=== PATIENT | female | born 1955 | race Caucasian/White ===

== ENCOUNTER 2017-07-21 06:24 | Inpatient (IN) ==
[2017-07-17 10:44] LABS: Basophils # 0.1 10*3/uL (0.0-0.2); Basophils % 1.5 % (0.0-0.8); Eosinophils # 0.1 10*3/uL (0.0-0.87); Eosinophils % 1.2 % (0.00-10.9); Hematocrit 44.5 VOL% (35.7-47.0); Immature Granulocytes % 0.3 %; Immature Granulocytes Absolute 0.02 #; Lymphocytes # 1.8 10*3/uL (1.4-4.0); Lymphocytes % 25.7 % (21.3-54.2); Mean Corpuscular Hemoglobin 33 PG (27-34); Mean Corpuscular Volume 91.9 FL (87-102); Mean Platelet Volume 9.7 FL (9.6-12.0); Monocytes # 0.7 10*3/uL (0.11-0.8); Monocytes % 9.5 % (1.7-12.7); Neutrophils # 4.2 10*3/uL (1.4-7.4); Neutrophils % 61.8 % (38.7-73.9); Platelet Count 240 T/CUMM (130-400); Red Blood Count 4.84 MC/CUMM (3.8-5.5); Red Cell Distribution Width 13.6 % (9.3-17.3); White Blood Count 6.8 T/CUMM (4-12)
[2017-07-17 11:23] LABS: Albumin 4.5 G/DL (3.4-5.0); Bilirubin,Total 0.7 MG/DL (0.2-1.0); Calcium 9.2 MG/DL (8.5-10.1); Osmolality,Calculated 273.2 MOS/KG (273-304); Potassium 4.1 MMOL/L (3.5-5.1); Total Protein 7.3 G/DL (6.4-8.3)
[~2017-07-21 06:24] MED LIST: VANCOMYCIN 500 MG VIAL ONE; VANCOMYCIN INJ 500 MG in SODIUM CHLORIDE 0.9% 100 ML IV ONE
[2017-07-21] MEDS ORDERED: FAMOTIDINE 20 MG TABLET PO ONE (08:07)
[2017-07-21] MEDS ORDERED: DIAZEPAM 5 MG TABLET PO ONE (08:07)
[2017-07-21] MEDS ORDERED: FAMOTIDINE 20 MG TABLET ONE (08:27)
[2017-07-21] MEDS ORDERED: DIAZEPAM 5 MG TABLET ONE (08:27)
[2017-07-21] MEDS ORDERED: HEPARIN 5,000 UNIT/1 ML VIAL ONE (09:07)
[2017-07-21] MEDS: LACTATED RINGERS 1,000 ML IV SCH ×7 (09:42→22:31)
[2017-07-21] MEDS ORDERED: DEXTROSE 50% 25 GM/50 ML VIAL IV PRN (11:06)
[2017-07-21] MEDS ORDERED: NALOXONE 0.4 MG/ML VIAL IV PRN (11:06)
[2017-07-21] MEDS ORDERED: PROMETHAZINE 25 MG/1 ML VIAL IM PRN (11:06)
[2017-07-21] MEDS ORDERED: HYDROmorphone 2 MG/1 ML VIAL IV PRN (11:06)
[2017-07-21] MEDS ORDERED: GLUCAGON 1 MG VIAL IM PRN (11:06)
[2017-07-21] MEDS ORDERED: ONDANSETRON 4 MG/2 ML VIAL IV PRN ×2 (11:06→11:35)
[2017-07-21] MEDS ORDERED: PHENYLEPHRINE DRIP 40 MG/250 ML PREMIX IV SCH (11:30)
[2017-07-21] MEDS ORDERED: ASPIRIN EC 81 MG TABLET PO SCH (11:30)
[2017-07-21] MEDS ORDERED: NITROPRUSSIDE 100 MG in DEXTROSE 5% 250 ML IV SCH (11:30)
[2017-07-21] MEDS ORDERED: HEPARIN/NACL 0.9% 2 UNITS/ML 500 ML IV ONE (11:33)
[2017-07-21] MEDS ORDERED: fentaNYL 100 MCG/2 ML VIAL ONE (11:33)
[2017-07-21] MEDS ORDERED: MIDAZOLAM 2 MG/2 ML VIAL ONE (11:33)
[2017-07-21] MEDS ORDERED: PROPOFOL 200 MG/20 ML VIAL IV ONE (11:33)
[2017-07-21] MEDS ORDERED: HEPARIN 10,000 UNIT/10 ML VIAL ONE (11:33)
[2017-07-21] MEDS ORDERED: GLYCOPYRROLATE 0.4 MG/2 ML VIAL ONE (11:34)
[2017-07-21] MEDS ORDERED: NITROGLYCERIN DRIP 50 MG/250 ML BOTTLE IV ONE (11:34)
[2017-07-21] MEDS ORDERED: KETOROLAC 30 MG/1 ML VIAL ONE (11:34)
[2017-07-21] MEDS ORDERED: ROCURONIUM 100 MG/10 ML VIAL IV ONE (11:34)
[2017-07-21] MEDS ORDERED: ESMOLOL 100 MG/10 ML VIAL IV ONE (11:34)
[2017-07-21] MEDS ORDERED: DEXAMETHASONE 10 MG/1 ML VIAL ONE (11:34)
[2017-07-21] MEDS ORDERED: NEOSTIGMINE 10 MG/10 ML VIAL ONE (11:34)
[2017-07-21] MEDS ORDERED: PROTAMINE SULFATE 50 MG/5 ML VIAL IV ONE (11:34)
[2017-07-21] MEDS ORDERED: SODIUM CHLORIDE 0.9% 250 ML IV ONE (11:35)
[2017-07-21] MEDS ORDERED: PHENYLEPHRINE 10 MG/1 ML VIAL IV ONE (11:35)
[2017-07-21] MEDS ORDERED: SEVOFLURANE 1 UNIT/15 MINUTE INH ONE (11:36)
[2017-07-21] MEDS: HYDROmorphone 2 MG/1 ML VIAL IV PRN ×5 (11:40→17:40)
[2017-07-21] MEDS ORDERED: PROMETHAZINE INJ 25 MG in SODIUM CHLORIDE 0.9% 50 ML IV ONE (12:04)
[2017-07-21] MEDS ORDERED: PROMETHAZINE 25 MG/1 ML VIAL ONE (12:05)
[2017-07-21] MEDS ORDERED: diphenhydrAMINE CAP 25 MG CAPSULE PO PRN (13:49)
[2017-07-21] MEDS ORDERED: diphenhydrAMINE CAP 25 MG CAPSULE ONE (13:53)
[2017-07-21] MEDS: ALBUTEROL/IPRATROPIUM 3 ML NEB RESP TX PRN (14:08)
[2017-07-21] MEDS: ASPIRIN CHEW 81 MG TABLET PO SCH (14:59)
[2017-07-21] MEDS: CLOPIDOGREL 75 MG TABLET PO SCH (15:00)
[2017-07-22] MEDS: ALBUTEROL/IPRATROPIUM 3 ML NEB RESP TX PRN (00:46)
[2017-07-22] MEDS: HYDROmorphone 2 MG/1 ML VIAL IV PRN ×2 (05:05→09:27)
[2017-07-22] MEDS: LACTATED RINGERS 1,000 ML IV SCH ×2 (08:02→08:16)
[2017-07-22] MEDS: CLOPIDOGREL 75 MG TABLET PO SCH (08:07)
[2017-07-22] MEDS: ASPIRIN CHEW 81 MG TABLET PO SCH (08:07)
[2017-07-22] MEDS ORDERED: PRAVASTATIN 40 MG TABLET PO SCH (09:00)
[2017-07-22] MEDS ORDERED: PANTOPRAZOLE 40 MG TABLET PO SCH (09:00)
[2017-07-22] MEDS ORDERED: TELMISARTAN 40 MG TABLET PO SCH (09:00)
[2017-07-22] MEDS ORDERED: MAGNESIUM OXIDE 400 MG TABLET PO SCH (09:00)
[2017-07-22] MEDS ORDERED: POTASSIUM CHLORIDE 10 MEQ TABLET PO SCH (09:00)
[2017-07-22] MEDS ORDERED: hydroCHLOROthiazide 25 MG TABLET PO SCH (09:00)
[2017-07-22 14:06] VITALS: BP 144/67
== END 2017-07-22 15:30 | disposition home or self-care (01) | DRG 39 ==
LOC: N.SDSINP 06:24 → N.CC 13:32 → N.3E 07-22 13:56
PROVIDERS: ADMIT Surgery; ATTEND Surgery

== ENCOUNTER 2020-06-12 09:49 | Inpatient (IN) ==
[2020-06-12 10:45] LABS: Basophils # 0.1 10*3/uL (0.0-0.2); Basophils % 0.9 % (0.0-0.8); Eosinophils % 0.4 % (0.00-10.9); Hematocrit 30.2 VOL% (35.7-47.0); Hemoglobin 10.8 GM/DL (12.0-16.0); Immature Granulocytes % 0.8 %; Immature Granulocytes Absolute 0.08 #; Lymphocytes # 1.3 10*3/uL (1.4-4.0); Lymphocytes % 12.3 % (21.3-54.2); Mean Corpuscular HGB Conc 35.8 GM/DL (32-36); Monocytes % 7.3 % (1.7-12.7); Neutrophils % 78.3 % (38.7-73.9); Platelet Count 412 T/CUMM (130-400); Red Blood Count 3.43 MC/CUMM (3.8-5.5); Red Cell Distribution Width 13.7 % (9.3-17.3); White Blood Count 10.3 T/CUMM (4-12)
[2020-06-12] MEDS ORDERED: SODIUM CHLORIDE 0.9% 1,000 ML IV STA (10:49)
[2020-06-12] MEDS ORDERED: ONDANSETRON 4 MG/2 ML VIAL IV ONE (10:49)
[2020-06-12 11:06] LABS: Albumin 3.5 G/DL (3.4-5.0); Bilirubin,Total 1.7 MG/DL (0.2-1.0); Calcium 8.6 MG/DL (8.5-10.1); Osmolality,Calculated 251.5 MOS/KG (273-304); Potassium 2.7 MMOL/L (3.5-5.1); Total Protein 6.9 G/DL (6.4-8.2)
[2020-06-12 11:25] LABS: Amorphous Crystals,Urine Few /HPF (Few); Bilirubin,Urine Small mg/dL (Negative); Blood, Urine Negative (Negative); Glucose,Urine (UA) Negative (Negative); Hyaline Casts,Urine 16 /LPF (0-3); Ketones,Urine Negative (Negative); Mucus,Urine Many /LPF (Occasional); Nitrite,Urine Negative (Negative); Protein,Urine 100 MG/DL; RBC,Urine 5 /HPF (0-4); Squamous Epithelial Cell,Urine Moderate /HPF (0-10); Urine Appearance CLOUDY (Clear); Urine Color Amber (Yellow); Urine Specific Gravity 1.021 (1.001-1.035); WBC,Urine 102 /HPF (0-6)
[2020-06-12] MEDS ORDERED: POTASSIUM CHLORIDE 20 MEQ TABLET PO STA ×2 (11:45→12:39)
[2020-06-12] MEDS ORDERED: ACETAMINOPHEN 325 MG TABLET PO PRN (12:03)
[2020-06-12 12:53] LABS: Risk Ratio 1.79; VLDL CHOLESTEROL 19.6 MG/DL
[2020-06-12] MEDS ORDERED: MAGNESIUM SULF RIDER 4 GM in PREMIX 1 EACH IV ONE (13:41)
[2020-06-12] MEDS: SODIUM CHLORIDE 0.9% 1,000 ML IV SCH (15:40)
[2020-06-12] MEDS: ENOXAPARIN 40 MG/0.4 ML SYRINGE SUBCUT SCH (15:51)
[2020-06-12] MEDS: ZALEPLON 5 MG CAPSULE PO PRN (21:34)
[2020-06-12] MEDS: ONDANSETRON 4 MG/2 ML VIAL IV PRN (21:35)
[2020-06-13] MEDS: SODIUM CHLORIDE 0.9% 1,000 ML IV SCH ×5 (01:36→21:47)
[2020-06-13 07:25] LABS: Basophils # 0.1 10*3/uL (0.0-0.2); Basophils % 0.8 % (0.0-0.8); Eosinophils # 0.1 10*3/uL (0.0-0.87); Eosinophils % 1.3 % (0.00-10.9); Immature Granulocytes % 0.9 %; Immature Granulocytes Absolute 0.07 #; Lymphocytes # 0.9 10*3/uL (1.4-4.0); Lymphocytes % 11.6 % (21.3-54.2); Mean Corpuscular HGB Conc 34.6 GM/DL (32-36); Mean Corpuscular Volume 92.2 FL (87-102); Monocytes % 8.6 % (1.7-12.7); Neutrophils % 76.8 % (38.7-73.9); Platelet Count 307 T/CUMM (130-400); Red Blood Count 2.82 MC/CUMM (3.8-5.5); Red Cell Distribution Width 13.7 % (9.3-17.3); White Blood Count 7.7 T/CUMM (4-12)
[2020-06-13 07:44] LABS: Albumin 2.9 G/DL (3.4-5.0); Calcium 7.9 MG/DL (8.5-10.1); Osmolality,Calculated 266.4 MOS/KG (273-304); Potassium 3.2 MMOL/L (3.5-5.1); Total Protein 5.8 G/DL (6.4-8.2)
[2020-06-13] MEDS ORDERED: POTASSIUM CHLORIDE 20 MEQ TABLET PO ONE (08:02)
[2020-06-13] MEDS: PANTOPRAZOLE 40 MG TABLET PO SCH (09:18)
[2020-06-13] MEDS ORDERED: metroNIDAZOLE INJ 500 MG in PREMIX 1 EACH IV ONE (12:47)
[2020-06-13] MEDS ORDERED: LEVOFLOXACIN INJ 500 MG in PREMIX 1 EACH IV ONE (12:47)
[2020-06-13] MEDS: ENOXAPARIN 40 MG/0.4 ML SYRINGE SUBCUT SCH (13:17)
[2020-06-13] MEDS: LEVOFLOXACIN INJ 500 MG in PREMIX 1 EACH IV SCH (13:37)
[2020-06-13] MEDS: MECLIZINE 25 MG TABLET PO SCH ×2 (13:37→21:08)
[2020-06-13] MEDS: FLUTICASONE 50 MCG NASAL SPRAY 16 GM BOTTLE BOTH NARES SCH ×2 (15:50→21:11)
[2020-06-13] MEDS ORDERED: SODIUM CHLORIDE 0.9% 1,000 ML IV ONE (16:25)
[2020-06-13] MEDS: ZALEPLON 5 MG CAPSULE PO PRN (21:08)
[2020-06-13] MEDS: MORPHINE 4 MG/1 ML VIAL IV PRN (21:10)
[2020-06-13 21:37] LABS: Basophils % 0.5 % (0.0-0.8); Eosinophils # 0.1 10*3/uL (0.0-0.87); Eosinophils % 1.3 % (0.00-10.9); Hematocrit 25.4 VOL% (35.7-47.0); Hemoglobin 8.4 GM/DL (12.0-16.0); Immature Granulocytes % 1.3 %; Lymphocytes % 13.5 % (21.3-54.2); Mean Corpuscular HGB Conc 33.1 GM/DL (32-36); Mean Corpuscular Volume 95.8 FL (87-102); Mean Platelet Volume 8.8 FL (9.6-12.0); Neutrophils % 74.4 % (38.7-73.9); Platelet Count 278 T/CUMM (130-400); Red Blood Count 2.65 MC/CUMM (3.8-5.5); White Blood Count 7.5 T/CUMM (4-12)
[2020-06-13 21:57] LABS: PT Patient Result 10.4 SECS (9.8-11.9); Partial Thromboplastin Time 22.5 SECS (23.9-33.8)
[2020-06-13 23:51] LABS: % Iron Saturation 21.2 % (18-50)
[2020-06-14 00:21] LABS: Folate 2.6 NG/ML (5.38-24.0); Vitamin B12 > 2000 PG/ML (211-911)
[2020-06-14] MEDS: SODIUM CHLORIDE 0.9% 1,000 ML IV SCH ×3 (00:53→22:43)
[2020-06-14] MEDS: MORPHINE 4 MG/1 ML VIAL IV PRN ×2 (01:00→08:42)
[2020-06-14 04:49] LABS: Basophils # 0.1 10*3/uL (0.0-0.2); Basophils % 0.7 % (0.0-0.8); Eosinophils # 0.1 10*3/uL (0.0-0.87); Hematocrit 28.1 VOL% (35.7-47.0); Hemoglobin 9.3 GM/DL (12.0-16.0); Immature Granulocytes Absolute 0.07 #; Lymphocytes # 1.2 10*3/uL (1.4-4.0); Lymphocytes % 16.3 % (21.3-54.2); Mean Corpuscular HGB Conc 33.1 GM/DL (32-36); Mean Platelet Volume 8.9 FL (9.6-12.0); Monocytes % 5.9 % (1.7-12.7); Neutrophils % 74.1 % (38.7-73.9); Platelet Count 253 T/CUMM (130-400); Red Blood Count 2.99 MC/CUMM (3.8-5.5); Red Cell Distribution Width 14.3 % (9.3-17.3); White Blood Count 7.2 T/CUMM (4-12)
[2020-06-14 05:19] LABS: Calcium 7.8 MG/DL (8.5-10.1); Osmolality,Calculated 275.7 MOS/KG (273-304); Potassium 3.5 MMOL/L (3.5-5.1)
[2020-06-14] MEDS: MECLIZINE 25 MG TABLET PO SCH ×2 (08:41→22:44)
[2020-06-14] MEDS: PANTOPRAZOLE 40 MG TABLET PO SCH (08:42)
[2020-06-14] MEDS: FLUTICASONE 50 MCG NASAL SPRAY 16 GM BOTTLE BOTH NARES SCH ×2 (08:42→22:43)
[2020-06-14] MEDS ORDERED: fentaNYL 100 MCG/2 ML VIAL ONE (11:21)
[2020-06-14] MEDS ORDERED: MIDAZOLAM 2 MG/2 ML VIAL ONE (11:22)
[2020-06-14] MEDS ORDERED: LACTATED RINGERS 1,000 ML IV SCH (11:30)
[2020-06-14] MEDS ORDERED: TISSUE ADHESIVE 1 EACH APPLICATOR TOP ONE (11:35)
[2020-06-14] MEDS ORDERED: BUPIVACAINE MPF 0.25% 30 ML VIAL ONE (11:35)
[2020-06-14] MEDS ORDERED: LIDOCAINE 1%/EPI INJ 20 ML VIAL ONE (11:36)
[2020-06-14] MEDS ORDERED: SUCCINYLCHOLINE 200 MG/10 ML VIAL ONE (11:44)
[2020-06-14] MEDS ORDERED: ALBUTEROL/IPRATROPIUM 3 ML NEB RESP TX ONE (11:48)
[2020-06-14] MEDS ORDERED: ONDANSETRON 4 MG/2 ML VIAL ONE (12:25)
[2020-06-14] MEDS ORDERED: propofoL 200 MG/20 ML VIAL IV ONE (12:25)
[2020-06-14] MEDS ORDERED: PHENYLEPHRINE 1 MG/10 ML SYRINGE IV ONE (12:25)
[2020-06-14] MEDS ORDERED: DEXAMETHASONE 4 MG/1 ML VIAL ONE (12:25)
[2020-06-14] MEDS ORDERED: LIDOCAINE 2% 5 ML VIAL ONE (12:25)
[2020-06-14] MEDS ORDERED: PROMETHAZINE 25 MG/1 ML VIAL ONE (12:29)
[2020-06-14] MEDS ORDERED: SUGAMMADEX 200 MG/2 ML VIAL IV ONE (12:53)
[2020-06-14] MEDS ORDERED: SEVOFLURANE 1 UNIT/15 MINUTE INH ONE (13:36)
[2020-06-14] MEDS: LEVOFLOXACIN INJ 500 MG in PREMIX 1 EACH IV SCH (14:42)
[2020-06-14] MEDS: ONDANSETRON 4 MG/2 ML VIAL IV PRN ×2 (14:48→16:20)
[2020-06-14] MEDS: ZALEPLON 5 MG CAPSULE PO PRN (22:58)
[2020-06-15 05:47] LABS: Basophils % 0.5 % (0.0-0.8); Eosinophils % 0.3 % (0.00-10.9); Hematocrit 28.9 VOL% (35.7-47.0); Hemoglobin 9.6 GM/DL (12.0-16.0); Immature Granulocytes % 1.6 %; Immature Granulocytes Absolute 0.12 #; Lymphocytes # 0.8 10*3/uL (1.4-4.0); Lymphocytes % 10.9 % (21.3-54.2); Mean Corpuscular HGB Conc 33.2 GM/DL (32-36); Mean Platelet Volume 9.1 FL (9.6-12.0); Monocytes % 8.7 % (1.7-12.7); Platelet Count 273 T/CUMM (130-400); Red Blood Count 3.01 MC/CUMM (3.8-5.5); Red Cell Distribution Width 15.1 % (9.3-17.3); White Blood Count 7.5 T/CUMM (4-12)
[2020-06-15 06:11] LABS: Calcium 8.1 MG/DL (8.5-10.1); Osmolality,Calculated 272.8 MOS/KG (273-304); Potassium 3.8 MMOL/L (3.5-5.1)
[2020-06-15] MEDS: MECLIZINE 25 MG TABLET PO SCH ×2 (09:02→20:32)
[2020-06-15] MEDS: FLUTICASONE 50 MCG NASAL SPRAY 16 GM BOTTLE BOTH NARES SCH ×2 (09:03→20:33)
[2020-06-15] MEDS: PANTOPRAZOLE 40 MG TABLET PO SCH (09:03)
[2020-06-15] MEDS: MORPHINE 4 MG/1 ML VIAL IV PRN (09:56)
[2020-06-15] MEDS: SODIUM CHLORIDE 0.9% 1,000 ML IV SCH (11:02)
[2020-06-15] MEDS ORDERED: MORPHINE 4 MG/1 ML VIAL IV PRN ×2 (13:39)
[2020-06-15] MEDS: LEVOFLOXACIN INJ 500 MG in PREMIX 1 EACH IV SCH (14:09)
[2020-06-16] MEDS: PANTOPRAZOLE 40 MG TABLET PO SCH (10:06)
[2020-06-16] MEDS: MECLIZINE 25 MG TABLET PO SCH (10:06)
[2020-06-16] MEDS: FLUTICASONE 50 MCG NASAL SPRAY 16 GM BOTTLE BOTH NARES SCH (10:06)
[2020-06-16 11:13] VITALS: BP 131/59
== END 2020-06-16 12:51 | disposition home or self-care (01) | DRG 418 ==
LOC: N.ED 09:49 → SUATTDRO 12:03 → N.EDINP 12:03 → N.TELES 15:15
PROVIDERS: ADMIT Internal Medicine; ATTEND Internal Medicine
PROC: LAPCHOL (2020-06-14 12:05)

== ENCOUNTER 2020-06-19 05:48 | Inpatient (IN) ==
[2020-06-19 06:09] LABS: Basophils # 0.2 10*3/uL (0.0-0.2); Basophils % 1.5 % (0.0-0.8); Eosinophils # 0.1 10*3/uL (0.0-0.87); Eosinophils % 0.7 % (0.00-10.9); Hematocrit 38.3 VOL% (35.7-47.0); Hemoglobin 12.2 GM/DL (12.0-16.0); Immature Granulocytes % 2.1 %; Immature Granulocytes Absolute 0.28 #; Lymphocytes # 2.2 10*3/uL (1.4-4.0); Lymphocytes % 16.6 % (21.3-54.2); Mean Corpuscular HGB Conc 31.9 GM/DL (32-36); Mean Platelet Volume 9.1 FL (9.6-12.0); Monocytes % 6.9 % (1.7-12.7); NRBC # 0.03 10*3/uL; Neutrophils % 72.2 % (38.7-73.9); Platelet Count 442 T/CUMM (130-400); Red Blood Count 3.99 MC/CUMM (3.8-5.5); Red Cell Distribution Width 14.8 % (9.3-17.3); White Blood Count 13.4 T/CUMM (4-12)
[2020-06-19] MEDS ORDERED: FUROSEMIDE 40 MG/4 ML VIAL IV STA (06:15)
[2020-06-19] MEDS ORDERED: ONDANSETRON 4 MG/2 ML VIAL IV STA (06:27)
[2020-06-19] MEDS ORDERED: MORPHINE 4 MG/1 ML VIAL IV STA (06:27)
[2020-06-19] MEDS ORDERED: ONDANSETRON 4 MG/2 ML VIAL ONE (06:28)
[2020-06-19] MEDS ORDERED: MORPHINE 4 MG/1 ML VIAL ONE (06:29)
[2020-06-19 06:30] LABS: Albumin 4.3 G/DL (3.4-5.0); Bilirubin,Total 0.5 MG/DL (0.2-1.0); Calcium 9.3 MG/DL (8.5-10.1); Osmolality,Calculated 282.4 MOS/KG (273-304); Potassium 3.9 MMOL/L (3.5-5.1); Total Protein 7.4 G/DL (6.4-8.2)
[2020-06-19 06:32] LABS: PT Patient Result 11.1 SECS (9.8-11.9)
[2020-06-19 06:48] LABS: ABG HCO3 19.5 MMOL/L (20-26); ABG Oxygen Saturation 98.2 % (95-100); ABG PCO2 28.1 MM HG (35-48); ABG PH 7.402 (7.35-7.45); ABG TCO2 15.5 MMOL/L (23-27); Allen Test Positive
[2020-06-19 07:04] LABS: Partial Thromboplastin Time < 20.0 SECS (23.9-33.8)
[2020-06-19 07:09] LABS: Bacteria,Urine Occasional /HPF (Few); Bilirubin,Urine Negative (Negative); Blood, Urine Small mg/dL (Negative); Glucose,Urine (UA) Negative (Negative); Granular Casts,Urine 1 /LPF (0-1); Hyaline Casts,Urine 21 /LPF (0-3); Ketones,Urine Negative (Negative); Mucus,Urine Few /LPF (Occasional); Nitrite,Urine Negative (Negative); Protein,Urine 30 MG/DL; RBC,Urine 3 /HPF (0-4); Squamous Epithelial Cell,Urine Occasional /HPF (0-10); Urine Appearance Slightly Hazy (Clear); Urine Color Yellow (Yellow); Urine Specific Gravity 1.009 (1.001-1.035); Urine Urobilinogen < 2.0 EU/DL (0.2-1.0); WBC,Urine 25 /HPF (0-6)
[2020-06-19] MEDS ORDERED: PHENAZOPYRIDINE 95 MG TABLET ONE (08:41)
[2020-06-19] MEDS ORDERED: DOCUSATE SODIUM 100 MG CAPSULE PO PRN (09:05)
[2020-06-19] MEDS ORDERED: GLUCAGON 1 MG VIAL IM PRN (09:05)
[2020-06-19] MEDS ORDERED: NICOTINE 21 MG/24 HR PATCH TRANSDERM PRN (09:05)
[2020-06-19] MEDS ORDERED: DEXTROSE 50% 25 GM/50 ML VIAL IV PRN (09:05)
[2020-06-19] MEDS ORDERED: ENOXAPARIN 30 MG/0.3 ML SYRINGE SUBCUT SCH (10:00)
[2020-06-19] MEDS ORDERED: LEVOFLOXACIN INJ 750 MG in PREMIX 1 EACH IV SCH (14:00)
[2020-06-19] MEDS: FUROSEMIDE 40 MG/4 ML VIAL IV SCH (17:53)
[2020-06-19] MEDS ORDERED: SODIUM CHLORIDE 0.9% 250 ML IV ONE (20:00)
[2020-06-19] MEDS: methylPREDNISolone SOD SUC 40 MG/1 ML VIAL IV SCH (20:45)
[2020-06-19] MEDS: FLUTICASONE 50 MCG NASAL SPRAY 16 GM BOTTLE BOTH NARES SCH (20:46)
[2020-06-19] MEDS: AZTREONAM 2,000 MG in SODIUM CHLORIDE 0.9% 100 ML IV SCH (20:53)
[2020-06-20] MEDS: AZTREONAM 2,000 MG in SODIUM CHLORIDE 0.9% 100 ML IV SCH ×4 (03:34→20:18)
[2020-06-20] MEDS: ALBUTEROL/IPRATROPIUM 3 ML NEB RESP TX PRN ×2 (04:28→15:32)
[2020-06-20 05:29] LABS: Basophils % 0.3 % (0.0-0.8); Hematocrit 32.5 VOL% (35.7-47.0); Hemoglobin 10.7 GM/DL (12.0-16.0); Immature Granulocytes % 0.8 %; Immature Granulocytes Absolute 0.06 #; Lymphocytes # 0.5 10*3/uL (1.4-4.0); Lymphocytes % 7.4 % (21.3-54.2); Mean Corpuscular HGB Conc 32.9 GM/DL (32-36); Mean Corpuscular Volume 93.4 FL (87-102); Mean Platelet Volume 9.1 FL (9.6-12.0); Monocytes % 2.3 % (1.7-12.7); Neutrophils % 89.2 % (38.7-73.9); Platelet Count 252 T/CUMM (130-400); Red Blood Count 3.48 MC/CUMM (3.8-5.5); Red Cell Distribution Width 14.9 % (9.3-17.3); White Blood Count 7.3 T/CUMM (4-12)
[2020-06-20 05:55] LABS: Calcium 8.7 MG/DL (8.5-10.1); Osmolality,Calculated 279.7 MOS/KG (273-304); Potassium 3.7 MMOL/L (3.5-5.1)
[2020-06-20] MEDS ORDERED: PANTOPRAZOLE 40 MG TABLET PO SCH (09:00)
[2020-06-20] MEDS ORDERED: ALPRAZolam 0.25 MG TABLET PO PRN (09:22)
[2020-06-20] MEDS: FLUTICASONE 50 MCG NASAL SPRAY 16 GM BOTTLE BOTH NARES SCH ×2 (09:24→20:19)
[2020-06-20] MEDS: MULTIVITAMIN (CENTRUM) TABLET PO SCH (09:25)
[2020-06-20] MEDS: ASPIRIN CHEW 81 MG TABLET PO SCH (09:25)
[2020-06-20] MEDS: SIMVASTATIN 40 MG TABLET PO SCH (09:26)
[2020-06-20] MEDS: FUROSEMIDE 40 MG TABLET PO SCH (09:26)
[2020-06-20] MEDS: COENZYME Q10 200 MG PO SCH (09:26)
[2020-06-20] MEDS: CHOLECALCIFEROL 1,000 UNIT TABLET PO SCH (09:26)
[2020-06-20] MEDS: CYANOCOBALAMIN 500 MCG TABLET PO SCH (09:26)
[2020-06-20] MEDS: PANTOPRAZOLE 40 MG TABLET PO SCH (09:26)
[2020-06-20] MEDS: BUDESONIDE/FORMOTEROL 160-4.5 INHALER 6 GM INH SCH ×3 (09:27→20:19)
[2020-06-20] MEDS: methylPREDNISolone SOD SUC 40 MG/1 ML VIAL IV SCH ×2 (09:27→20:18)
[2020-06-20] MEDS: FUROSEMIDE 40 MG/4 ML VIAL IV SCH (09:49)
[2020-06-20] MEDS: ENOXAPARIN 40 MG/0.4 ML SYRINGE SUBCUT SCH (09:50)
[2020-06-20] MEDS: SERTRALINE 25 MG TABLET PO SCH (11:12)
[2020-06-20] MEDS ORDERED: LEVOFLOXACIN INJ 750 MG in PREMIX 1 EACH IV SCH (14:00)
[2020-06-20] MEDS ORDERED: SODIUM CHLORIDE 0.9% 250 ML IV ONE (19:32)
[2020-06-20] MEDS: CLORAZEPATE 3.75 MG TABLET PO PRN (20:18)
[2020-06-20] MEDS: ONDANSETRON 4 MG/2 ML VIAL IV PRN (23:56)
[2020-06-21] MEDS: ONDANSETRON 4 MG/2 ML VIAL IV PRN (03:34)
[2020-06-21] MEDS: AZTREONAM 2,000 MG in SODIUM CHLORIDE 0.9% 100 ML IV SCH ×4 (03:34→21:30)
[2020-06-21 07:11] LABS: Basophils % 0.1 % (0.0-0.8); Hematocrit 30.7 VOL% (35.7-47.0); Immature Granulocytes % 0.6 %; Immature Granulocytes Absolute 0.05 #; Lymphocytes # 0.4 10*3/uL (1.4-4.0); Lymphocytes % 5.5 % (21.3-54.2); Mean Corpuscular HGB Conc 32.6 GM/DL (32-36); Mean Corpuscular Volume 95.3 FL (87-102); Monocytes % 5.1 % (1.7-12.7); Neutrophils % 88.7 % (38.7-73.9); Platelet Count 231 T/CUMM (130-400); Red Blood Count 3.22 MC/CUMM (3.8-5.5); Red Cell Distribution Width 14.8 % (9.3-17.3); White Blood Count 7.8 T/CUMM (4-12)
[2020-06-21 07:19] LABS: Calcium 8.6 MG/DL (8.5-10.1); Osmolality,Calculated 287.3 MOS/KG (273-304); Potassium 3.4 MMOL/L (3.5-5.1)
[2020-06-21] MEDS: methylPREDNISolone SOD SUC 40 MG/1 ML VIAL IV SCH ×2 (09:11→21:29)
[2020-06-21] MEDS: ENOXAPARIN 40 MG/0.4 ML SYRINGE SUBCUT SCH (09:11)
[2020-06-21] MEDS: MULTIVITAMIN (CENTRUM) TABLET PO SCH (09:12)
[2020-06-21] MEDS: FUROSEMIDE 40 MG TABLET PO SCH (09:12)
[2020-06-21] MEDS: ASPIRIN CHEW 81 MG TABLET PO SCH (09:12)
[2020-06-21] MEDS: PANTOPRAZOLE 40 MG TABLET PO SCH (09:12)
[2020-06-21] MEDS: SERTRALINE 25 MG TABLET PO SCH (09:12)
[2020-06-21] MEDS: CHOLECALCIFEROL 1,000 UNIT TABLET PO SCH (09:12)
[2020-06-21] MEDS: CYANOCOBALAMIN 500 MCG TABLET PO SCH (09:12)
[2020-06-21] MEDS: COENZYME Q10 200 MG PO SCH (09:13)
[2020-06-21] MEDS: SIMVASTATIN 40 MG TABLET PO SCH (09:13)
[2020-06-21] MEDS: FLUTICASONE 50 MCG NASAL SPRAY 16 GM BOTTLE BOTH NARES SCH ×2 (09:13→21:30)
[2020-06-21] MEDS: BUDESONIDE/FORMOTEROL 160-4.5 INHALER 6 GM INH SCH ×2 (09:14→21:30)
[2020-06-21] MEDS ORDERED: MAGNESIUM SULF RIDER 2 GM in PREMIX 1 EACH IV ONE (09:53)
[2020-06-21] MEDS ORDERED: POTASSIUM CHLORIDE 20 MEQ TABLET PO ONE (09:53)
[2020-06-21] MEDS ORDERED: FLUCONAZOLE 200 MG TABLET PO ONE (10:21)
[2020-06-21] MEDS: PHENAZOPYRIDINE 95 MG TABLET PO SCH ×2 (10:43→16:23)
[2020-06-21] MEDS: ALBUTEROL/IPRATROPIUM 3 ML NEB RESP TX SCH ×2 (13:47→19:11)
[2020-06-21] MEDS: LEVOFLOXACIN 750 MG TABLET PO SCH (15:17)
[2020-06-21] MEDS: CLORAZEPATE 3.75 MG TABLET PO PRN (22:40)
[2020-06-22] MEDS: ALBUTEROL/IPRATROPIUM 3 ML NEB RESP TX SCH ×4 (00:45→19:59)
[2020-06-22 05:57] LABS: Calcium 8.9 MG/DL (8.5-10.1); Osmolality,Calculated 286.5 MOS/KG (273-304); Potassium 3.9 MMOL/L (3.5-5.1)
[2020-06-22] MEDS: AZTREONAM 2,000 MG in SODIUM CHLORIDE 0.9% 100 ML IV SCH ×4 (07:02→20:55)
[2020-06-22] MEDS: methylPREDNISolone SOD SUC 40 MG/1 ML VIAL IV SCH ×2 (09:12→20:48)
[2020-06-22] MEDS ORDERED: NITROGLYCERIN SL 0.4 MG TABLET SL PRN (09:21)
[2020-06-22] MEDS: ASPIRIN CHEW 81 MG TABLET PO SCH (09:46)
[2020-06-22] MEDS: PANTOPRAZOLE 40 MG TABLET PO SCH (09:46)
[2020-06-22] MEDS: FUROSEMIDE 40 MG TABLET PO SCH (09:46)
[2020-06-22] MEDS: SERTRALINE 25 MG TABLET PO SCH (09:46)
[2020-06-22] MEDS: LEVOFLOXACIN 750 MG TABLET PO SCH (09:46)
[2020-06-22] MEDS: METOPROLOL TARTRATE 25 MG TABLET PO SCH ×2 (09:46→20:56)
[2020-06-22] MEDS: CHOLECALCIFEROL 1,000 UNIT TABLET PO SCH (09:46)
[2020-06-22] MEDS: PHENAZOPYRIDINE 95 MG TABLET PO SCH ×2 (09:47→16:00)
[2020-06-22] MEDS: POTASSIUM CHLORIDE 20 MEQ TABLET PO SCH (09:47)
[2020-06-22] MEDS: CYANOCOBALAMIN 500 MCG TABLET PO SCH (09:47)
[2020-06-22] MEDS: MULTIVITAMIN (CENTRUM) TABLET PO SCH (09:47)
[2020-06-22] MEDS: SIMVASTATIN 40 MG TABLET PO SCH (09:47)
[2020-06-22] MEDS: FLUTICASONE 50 MCG NASAL SPRAY 16 GM BOTTLE BOTH NARES SCH ×2 (09:52→20:59)
[2020-06-22] MEDS: BUDESONIDE/FORMOTEROL 160-4.5 INHALER 6 GM INH SCH ×2 (09:53→20:59)
[2020-06-22] MEDS: COENZYME Q10 200 MG PO SCH (09:56)
[2020-06-22] MEDS: ENOXAPARIN 40 MG/0.4 ML SYRINGE SUBCUT SCH (09:56)
[2020-06-22] MEDS: CLORAZEPATE 3.75 MG TABLET PO PRN (21:00)
[2020-06-23] MEDS: ALBUTEROL/IPRATROPIUM 3 ML NEB RESP TX SCH ×4 (00:25→19:14)
[2020-06-23] MEDS: AZTREONAM 2,000 MG in SODIUM CHLORIDE 0.9% 100 ML IV SCH ×4 (03:16→21:32)
[2020-06-23 06:41] LABS: Calcium 9.2 MG/DL (8.5-10.1); Osmolality,Calculated 292.3 MOS/KG (273-304); Potassium 4.8 MMOL/L (3.5-5.1)
[2020-06-23] MEDS: methylPREDNISolone SOD SUC 40 MG/1 ML VIAL IV SCH ×2 (08:37→21:28)
[2020-06-23] MEDS: MULTIVITAMIN (CENTRUM) TABLET PO SCH (09:16)
[2020-06-23] MEDS: CYANOCOBALAMIN 500 MCG TABLET PO SCH (09:16)
[2020-06-23] MEDS: CHOLECALCIFEROL 1,000 UNIT TABLET PO SCH (09:16)
[2020-06-23] MEDS: PHENAZOPYRIDINE 95 MG TABLET PO SCH ×2 (09:17→16:46)
[2020-06-23] MEDS: FUROSEMIDE 40 MG TABLET PO SCH (09:17)
[2020-06-23] MEDS: SIMVASTATIN 40 MG TABLET PO SCH (09:17)
[2020-06-23] MEDS: POTASSIUM CHLORIDE 20 MEQ TABLET PO SCH (09:17)
[2020-06-23] MEDS: SERTRALINE 25 MG TABLET PO SCH (09:17)
[2020-06-23] MEDS: METOPROLOL TARTRATE 25 MG TABLET PO SCH ×2 (09:17→21:27)
[2020-06-23] MEDS: PANTOPRAZOLE 40 MG TABLET PO SCH (09:17)
[2020-06-23] MEDS: ASPIRIN CHEW 81 MG TABLET PO SCH (09:17)
[2020-06-23] MEDS: COENZYME Q10 200 MG PO SCH (09:18)
[2020-06-23] MEDS: BUDESONIDE/FORMOTEROL 160-4.5 INHALER 6 GM INH SCH ×2 (09:25→21:28)
[2020-06-23] MEDS: FLUTICASONE 50 MCG NASAL SPRAY 16 GM BOTTLE BOTH NARES SCH ×2 (09:25→21:28)
[2020-06-23] MEDS: LEVOFLOXACIN 750 MG TABLET PO SCH (09:31)
[2020-06-23] MEDS: CLORAZEPATE 3.75 MG TABLET PO PRN (21:27)
[2020-06-24] MEDS: AZTREONAM 2,000 MG in SODIUM CHLORIDE 0.9% 100 ML IV SCH ×5 (03:41→21:54)
[2020-06-24] MEDS: ALBUTEROL/IPRATROPIUM 3 ML NEB RESP TX SCH ×4 (04:55→20:15)
[2020-06-24 06:03] LABS: Basophils % 0.1 % (0.0-0.8); Hematocrit 33.3 VOL% (35.7-47.0); Hemoglobin 10.6 GM/DL (12.0-16.0); Immature Granulocytes % 1.1 %; Immature Granulocytes Absolute 0.09 #; Lymphocytes # 0.4 10*3/uL (1.4-4.0); Lymphocytes % 4.1 % (21.3-54.2); Mean Corpuscular HGB Conc 31.8 GM/DL (32-36); Mean Corpuscular Volume 97.9 FL (87-102); Mean Platelet Volume 10.9 FL (9.6-12.0); Monocytes % 3.3 % (1.7-12.7); Neutrophils % 91.4 % (38.7-73.9); Platelet Count 207 T/CUMM (130-400); Red Cell Distribution Width 15.1 % (9.3-17.3); White Blood Count 8.5 T/CUMM (4-12)
[2020-06-24 06:30] LABS: Calcium 9.4 MG/DL (8.5-10.1); Osmolality,Calculated 294.3 MOS/KG (273-304); Potassium 4.3 MMOL/L (3.5-5.1)
[2020-06-24] MEDS: MULTIVITAMIN (CENTRUM) TABLET PO SCH (09:04)
[2020-06-24] MEDS: POTASSIUM CHLORIDE 20 MEQ TABLET PO SCH (09:04)
[2020-06-24] MEDS: CYANOCOBALAMIN 500 MCG TABLET PO SCH (09:05)
[2020-06-24] MEDS: PANTOPRAZOLE 40 MG TABLET PO SCH (09:05)
[2020-06-24] MEDS: METOPROLOL TARTRATE 25 MG TABLET PO SCH ×2 (09:05→21:54)
[2020-06-24] MEDS: ASPIRIN CHEW 81 MG TABLET PO SCH (09:05)
[2020-06-24] MEDS: PHENAZOPYRIDINE 95 MG TABLET PO SCH ×2 (09:05→16:23)
[2020-06-24] MEDS: FUROSEMIDE 40 MG TABLET PO SCH (09:05)
[2020-06-24] MEDS: LEVOFLOXACIN 750 MG TABLET PO SCH (09:06)
[2020-06-24] MEDS: SERTRALINE 25 MG TABLET PO SCH (09:06)
[2020-06-24] MEDS: SIMVASTATIN 40 MG TABLET PO SCH (09:06)
[2020-06-24] MEDS: CHOLECALCIFEROL 1,000 UNIT TABLET PO SCH (09:06)
[2020-06-24] MEDS: BUDESONIDE/FORMOTEROL 160-4.5 INHALER 6 GM INH SCH ×2 (09:07→21:54)
[2020-06-24] MEDS: FLUTICASONE 50 MCG NASAL SPRAY 16 GM BOTTLE BOTH NARES SCH ×2 (09:07→21:54)
[2020-06-24] MEDS: COENZYME Q10 200 MG PO SCH (09:08)
[2020-06-24] MEDS: methylPREDNISolone SOD SUC 40 MG/1 ML VIAL IV SCH ×2 (10:05→21:54)
[2020-06-24 20:44] LABS: Band Neutrophils 1 % (0-10); Lymphocytes 6 % (20-55); Platelet Estimate Normal; Segmented Neutrophils 90 % (50-85); Total Cells Counted 100
[2020-06-25] MEDS: ALBUTEROL/IPRATROPIUM 3 ML NEB RESP TX SCH ×4 (01:44→19:49)
[2020-06-25] MEDS: AZTREONAM 2,000 MG in SODIUM CHLORIDE 0.9% 100 ML IV SCH ×4 (03:40→21:09)
[2020-06-25 06:09] LABS: Basophils % 0.1 % (0.0-0.8); Hematocrit 33.8 VOL% (35.7-47.0); Hemoglobin 10.6 GM/DL (12.0-16.0); Immature Granulocytes % 1.5 %; Immature Granulocytes Absolute 0.11 #; Lymphocytes # 0.3 10*3/uL (1.4-4.0); Lymphocytes % 4.4 % (21.3-54.2); Mean Corpuscular HGB Conc 31.4 GM/DL (32-36); Mean Corpuscular Volume 99.1 FL (87-102); Mean Platelet Volume 11.3 FL (9.6-12.0); Monocytes % 3.2 % (1.7-12.7); Neutrophils % 90.8 % (38.7-73.9); Platelet Count 205 T/CUMM (130-400); Red Blood Count 3.41 MC/CUMM (3.8-5.5); Red Cell Distribution Width 15.3 % (9.3-17.3); White Blood Count 7.4 T/CUMM (4-12)
[2020-06-25 06:25] LABS: Calcium 9.4 MG/DL (8.5-10.1); Osmolality,Calculated 293.3 MOS/KG (273-304); Potassium 4.7 MMOL/L (3.5-5.1)
[2020-06-25 06:47] LABS: Hypochromasia 1+; Lymphocytes 5 % (20-55); Microcytosis 1+; Platelet Estimate Adequate; Segmented Neutrophils 93 % (50-85); Total Cells Counted 100
[2020-06-25] MEDS: FUROSEMIDE 40 MG TABLET PO SCH (09:32)
[2020-06-25] MEDS: ASPIRIN CHEW 81 MG TABLET PO SCH (09:32)
[2020-06-25] MEDS: POTASSIUM CHLORIDE 20 MEQ TABLET PO SCH (09:32)
[2020-06-25] MEDS: SERTRALINE 25 MG TABLET PO SCH (09:32)
[2020-06-25] MEDS: CYANOCOBALAMIN 500 MCG TABLET PO SCH (09:32)
[2020-06-25] MEDS: PHENAZOPYRIDINE 95 MG TABLET PO SCH ×2 (09:32→17:31)
[2020-06-25] MEDS: PANTOPRAZOLE 40 MG TABLET PO SCH (09:33)
[2020-06-25] MEDS: MULTIVITAMIN (CENTRUM) TABLET PO SCH (09:33)
[2020-06-25] MEDS: CHOLECALCIFEROL 1,000 UNIT TABLET PO SCH (09:33)
[2020-06-25] MEDS: SIMVASTATIN 40 MG TABLET PO SCH (09:33)
[2020-06-25] MEDS: LEVOFLOXACIN 750 MG TABLET PO SCH (09:33)
[2020-06-25] MEDS: BUDESONIDE/FORMOTEROL 160-4.5 INHALER 6 GM INH SCH ×2 (09:34→21:09)
[2020-06-25] MEDS: FLUTICASONE 50 MCG NASAL SPRAY 16 GM BOTTLE BOTH NARES SCH ×2 (09:36→21:09)
[2020-06-25] MEDS: predniSONE 20 MG TABLET PO SCH (09:37)
[2020-06-25] MEDS: METOPROLOL TARTRATE 25 MG TABLET PO SCH (09:41)
[2020-06-25] MEDS: COENZYME Q10 200 MG PO SCH (09:45)
[2020-06-25] MEDS ORDERED: SODIUM CHLORIDE 0.9% 500 ML IV ONE (11:17)
[2020-06-25] MEDS: CLORAZEPATE 3.75 MG TABLET PO PRN (21:20)
[2020-06-26] MEDS: AZTREONAM 2,000 MG in SODIUM CHLORIDE 0.9% 100 ML IV SCH ×4 (03:00→21:48)
[2020-06-26] MEDS: ALBUTEROL/IPRATROPIUM 3 ML NEB RESP TX SCH ×4 (03:11→22:41)
[2020-06-26 07:23] LABS: Calcium 9.2 MG/DL (8.5-10.1); Osmolality,Calculated 287.3 MOS/KG (273-304); Potassium 3.7 MMOL/L (3.5-5.1)
[2020-06-26] MEDS: PHENAZOPYRIDINE 95 MG TABLET PO SCH ×2 (07:53→18:00)
[2020-06-26] MEDS ORDERED: FUROSEMIDE 20 MG TABLET PO SCH (09:00)
[2020-06-26] MEDS: FLUTICASONE 50 MCG NASAL SPRAY 16 GM BOTTLE BOTH NARES SCH ×2 (09:41→21:49)
[2020-06-26] MEDS: SERTRALINE 25 MG TABLET PO SCH (09:41)
[2020-06-26] MEDS: predniSONE 20 MG TABLET PO SCH (09:41)
[2020-06-26] MEDS: MULTIVITAMIN (CENTRUM) TABLET PO SCH (09:41)
[2020-06-26] MEDS: POTASSIUM CHLORIDE 20 MEQ TABLET PO SCH (09:41)
[2020-06-26] MEDS: CHOLECALCIFEROL 1,000 UNIT TABLET PO SCH (09:41)
[2020-06-26] MEDS: PANTOPRAZOLE 40 MG TABLET PO SCH (09:41)
[2020-06-26] MEDS: SIMVASTATIN 40 MG TABLET PO SCH (09:41)
[2020-06-26] MEDS: CYANOCOBALAMIN 500 MCG TABLET PO SCH (09:41)
[2020-06-26] MEDS: BUDESONIDE/FORMOTEROL 160-4.5 INHALER 6 GM INH SCH ×2 (09:41→21:49)
[2020-06-26] MEDS: LEVOFLOXACIN 750 MG TABLET PO SCH (09:41)
[2020-06-26] MEDS: COENZYME Q10 200 MG PO SCH (09:42)
[2020-06-26] MEDS: ASPIRIN CHEW 81 MG TABLET PO SCH (09:48)
[2020-06-26] MEDS ORDERED: SODIUM CHLORIDE 0.9% 500 ML IV ONE (14:59)
[2020-06-26] MEDS: CLORAZEPATE 3.75 MG TABLET PO PRN (22:08)
[2020-06-27] MEDS: AZTREONAM 2,000 MG in SODIUM CHLORIDE 0.9% 100 ML IV SCH (03:05)
[2020-06-27] MEDS: ALBUTEROL/IPRATROPIUM 3 ML NEB RESP TX SCH ×4 (04:16→19:36)
[2020-06-27 05:00] LABS: Basophils % 0.2 % (0.0-0.8); Eosinophils # 0.1 10*3/uL (0.0-0.87); Eosinophils % 1.4 % (0.00-10.9); Hematocrit 34.7 VOL% (35.7-47.0); Hemoglobin 10.4 GM/DL (12.0-16.0); Immature Granulocytes % 1.6 %; Lymphocytes # 0.6 10*3/uL (1.4-4.0); Lymphocytes % 9.6 % (21.3-54.2); Mean Corpuscular Volume 99.4 FL (87-102); Mean Platelet Volume 10.7 FL (9.6-12.0); Monocytes % 6.6 % (1.7-12.7); Neutrophils % 80.6 % (38.7-73.9); Platelet Count 208 T/CUMM (130-400); Red Blood Count 3.49 MC/CUMM (3.8-5.5); Red Cell Distribution Width 15.5 % (9.3-17.3); White Blood Count 6.2 T/CUMM (4-12)
[2020-06-27 05:18] LABS: Calcium 8.9 MG/DL (8.5-10.1); Potassium 3.9 MMOL/L (3.5-5.1)
[2020-06-27 07:26] LABS: Hypochromasia 1+; Lymphocytes 9 % (20-55); Segmented Neutrophils 81 % (50-85); Total Cells Counted 100
[2020-06-27 07:27] LABS: Microcytosis 1+; Ovalocytes Slight; Platelet Estimate Normal
[2020-06-27] MEDS: ASPIRIN CHEW 81 MG TABLET PO SCH (09:24)
[2020-06-27] MEDS: PHENAZOPYRIDINE 95 MG TABLET PO SCH ×2 (09:24→17:01)
[2020-06-27] MEDS: MULTIVITAMIN (CENTRUM) TABLET PO SCH (09:24)
[2020-06-27] MEDS: POTASSIUM CHLORIDE 20 MEQ TABLET PO SCH (09:24)
[2020-06-27] MEDS: PANTOPRAZOLE 40 MG TABLET PO SCH (09:24)
[2020-06-27] MEDS: predniSONE 20 MG TABLET PO SCH (09:24)
[2020-06-27] MEDS: LEVOFLOXACIN 750 MG TABLET PO SCH (09:25)
[2020-06-27] MEDS: SERTRALINE 25 MG TABLET PO SCH (09:25)
[2020-06-27] MEDS: CHOLECALCIFEROL 1,000 UNIT TABLET PO SCH (09:25)
[2020-06-27] MEDS: METOPROLOL SUCCINATE XL 25 MG TABLET PO SCH (09:25)
[2020-06-27] MEDS: CYANOCOBALAMIN 500 MCG TABLET PO SCH (09:25)
[2020-06-27] MEDS: COENZYME Q10 200 MG PO SCH (09:26)
[2020-06-27] MEDS: FLUTICASONE 50 MCG NASAL SPRAY 16 GM BOTTLE BOTH NARES SCH ×2 (09:27→21:32)
[2020-06-27] MEDS: BUDESONIDE/FORMOTEROL 160-4.5 INHALER 6 GM INH SCH ×2 (09:27→21:33)
[2020-06-27] MEDS: SIMVASTATIN 40 MG TABLET PO SCH (09:43)
[2020-06-27] MEDS: POLYMYXIN/TRIMETHOPRIM OPH SOL 10 ML BOTTLE LEFT EYE SCH ×3 (14:00→21:33)
[2020-06-27] MEDS: CLORAZEPATE 3.75 MG TABLET PO PRN (22:08)
[2020-06-28] MEDS: ALBUTEROL/IPRATROPIUM 3 ML NEB RESP TX SCH ×2 (01:34→07:35)
[2020-06-28] MEDS: LEVOFLOXACIN 750 MG TABLET PO SCH (09:08)
[2020-06-28] MEDS: CYANOCOBALAMIN 500 MCG TABLET PO SCH (09:08)
[2020-06-28] MEDS: SIMVASTATIN 40 MG TABLET PO SCH (09:08)
[2020-06-28] MEDS: POTASSIUM CHLORIDE 20 MEQ TABLET PO SCH (09:09)
[2020-06-28] MEDS: predniSONE 20 MG TABLET PO SCH (09:09)
[2020-06-28] MEDS: MULTIVITAMIN (CENTRUM) TABLET PO SCH (09:09)
[2020-06-28] MEDS: CHOLECALCIFEROL 1,000 UNIT TABLET PO SCH (09:09)
[2020-06-28] MEDS: SERTRALINE 25 MG TABLET PO SCH (09:09)
[2020-06-28] MEDS: PANTOPRAZOLE 40 MG TABLET PO SCH (09:09)
[2020-06-28] MEDS: ASPIRIN CHEW 81 MG TABLET PO SCH (09:09)
[2020-06-28] MEDS: METOPROLOL SUCCINATE XL 25 MG TABLET PO SCH (09:10)
[2020-06-28] MEDS: PHENAZOPYRIDINE 95 MG TABLET PO SCH (09:10)
[2020-06-28] MEDS: POLYMYXIN/TRIMETHOPRIM OPH SOL 10 ML BOTTLE LEFT EYE SCH ×2 (09:12→12:41)
[2020-06-28] MEDS: BUDESONIDE/FORMOTEROL 160-4.5 INHALER 6 GM INH SCH (09:12)
[2020-06-28] MEDS: FLUTICASONE 50 MCG NASAL SPRAY 16 GM BOTTLE BOTH NARES SCH (09:12)
[2020-06-28] MEDS: COENZYME Q10 200 MG PO SCH (09:20)
[2020-06-28 12:11] VITALS: BP 140/65
== END 2020-06-28 14:45 | disposition home or self-care (01) | DRG 193 ==
LOC: EDUNIT# → EDBD → N.ED 05:48 → N.EDINP 09:05 → SUATTDRO 09:05 → INTOOBSV 09:05 → N.TELEN 11:48
PROVIDERS: ADMIT Internal Medicine; ATTEND Internal Medicine

== ENCOUNTER 2020-07-06 04:16 | Inpatient (IN) ==
[2020-07-06] MEDS ORDERED: methylPREDNISolone SOD SUC 125 MG/2 ML VIAL IV STA (04:44)
[2020-07-06] MEDS ORDERED: ALBUTEROL/IPRATROPIUM 3 ML NEB RESP TX STA (04:44)
[2020-07-06 04:50] LABS: Basophils # 0.1 10*3/uL (0.0-0.2); Basophils % 0.3 % (0.0-0.8); Eosinophils # 0.1 10*3/uL (0.0-0.87); Eosinophils % 0.6 % (0.00-10.9); Hematocrit 42.8 VOL% (35.7-47.0); Hemoglobin 13.4 GM/DL (12.0-16.0); Immature Granulocytes % 2.1 %; Immature Granulocytes Absolute 0.44 #; Lymphocytes # 1.2 10*3/uL (1.4-4.0); Lymphocytes % 5.8 % (21.3-54.2); Mean Corpuscular HGB Conc 31.3 GM/DL (32-36); Mean Corpuscular Volume 98.2 FL (87-102); Mean Platelet Volume 9.8 FL (9.6-12.0); NRBC # 0.02 10*3/uL; Neutrophils % 87.2 % (38.7-73.9); Platelet Count 360 T/CUMM (130-400); Red Blood Count 4.36 MC/CUMM (3.8-5.5); Red Cell Distribution Width 15.6 % (9.3-17.3)
[2020-07-06] MEDS ORDERED: ALBUTEROL NEB SOLN 5 MG/ML 20 ML/BOTTLE ONE (04:52)
[2020-07-06] MEDS ORDERED: ALBUTEROL NEB SOLN 5 MG/ML 20 ML/BOTTLE CONT NEB STA (04:52)
[2020-07-06 05:14] LABS: Troponin I 0.262 NG/ML (0.00-0.045)
[2020-07-06] MEDS ORDERED: SODIUM CHLORIDE 0.9% 1,000 ML IV STA (05:14)
[2020-07-06 05:19] LABS: Band Neutrophils 3 % (0-10); Eosinophils 1 % (0-10); Lymphocytes 8 % (20-55); Segmented Neutrophils 86 % (50-85); Total Cells Counted 100
[2020-07-06] MEDS ORDERED: LEVOFLOXACIN 500 MG TABLET PO STA (05:19)
[2020-07-06 05:20] LABS: Hypochromasia Slight; Stomatocytes Few
[2020-07-06 05:21] LABS: Microcytosis 1+; Polychromasia Slight
[2020-07-06] MEDS ORDERED: LEVOFLOXACIN INJ 500 MG/100 ML PREMIX IV ONE (05:25)
[2020-07-06] MEDS ORDERED: LEVOFLOXACIN INJ 500 MG/100 ML PREMIX IV STA (05:25)
[2020-07-06 05:32] LABS: Albumin 3.1 G/DL (3.4-5.0); Bilirubin,Total 0.6 MG/DL (0.2-1.0); Calcium 8.5 MG/DL (8.5-10.1); Osmolality,Calculated 287.4 MOS/KG (273-304); Potassium 3.3 MMOL/L (3.5-5.1); Total Protein 6.8 G/DL (6.4-8.2)
[2020-07-06] MEDS ORDERED: DOXYCYCLINE HYCLATE INJ 100 MG in SODIUM CHLORIDE 0.9% 100 ML IV SCH (06:00)
[2020-07-06] MEDS ORDERED: ALBUTEROL 2.5 MG/3 ML NEB RESP TX PRN (06:01)
[2020-07-06] MEDS ORDERED: DOCUSATE SODIUM 100 MG CAPSULE PO PRN (06:10)
[2020-07-06] MEDS ORDERED: ONDANSETRON 4 MG/2 ML VIAL IV PRN (06:10)
[2020-07-06] MEDS ORDERED: GLUCAGON 1 MG VIAL IM PRN (06:10)
[2020-07-06] MEDS ORDERED: DEXTROSE 50% 25 GM/50 ML VIAL IV PRN (06:10)
[2020-07-06] MEDS ORDERED: NITROGLYCERIN SL 0.4 MG TABLET SL PRN (06:20)
[2020-07-06] MEDS ORDERED: MAGNESIUM SULF RIDER 2 GM/50 ML PREMIX IV PRN (06:22)
[2020-07-06] MEDS ORDERED: POTASSIUM CHLORIDE 20 MEQ TABLET PO PRN (06:22)
[2020-07-06] MEDS ORDERED: MAGNESIUM SULF RIDER 4 GM/100 ML PREMIX IV PRN (06:22)
[2020-07-06] MEDS ORDERED: SODIUM CHLORIDE 0.9% 1,000 ML IV SCH (06:30)
[2020-07-06] MEDS: ALBUTEROL/IPRATROPIUM 3 ML NEB RESP TX SCH ×5 (08:03→23:10)
[2020-07-06] MEDS: ENOXAPARIN 40 MG/0.4 ML SYRINGE SUBCUT SCH (08:38)
[2020-07-06] MEDS: PANTOPRAZOLE 40 MG TABLET PO SCH (08:39)
[2020-07-06] MEDS: ASPIRIN CHEW 81 MG TABLET PO SCH (08:39)
[2020-07-06] MEDS: POTASSIUM CHLORIDE 20 MEQ TABLET PO SCH (08:39)
[2020-07-06] MEDS: LOPERAMIDE 2 MG CAPSULE PO PRN (09:54)
[2020-07-06] MEDS: CYANOCOBALAMIN 500 MCG TABLET PO SCH (09:54)
[2020-07-06] MEDS: CHOLECALCIFEROL 1,000 UNIT TABLET PO SCH (10:02)
[2020-07-06] MEDS: COENZYME Q10 100 MG CAPSULE PO SCH (10:02)
[2020-07-06] MEDS: MULTIVITAMIN (CENTRUM) TABLET PO SCH (10:02)
[2020-07-06] MEDS ORDERED: POTASSIUM CHLORIDE RIDER 10 MEQ in PREMIX 1 EACH IV PRN (11:00)
[2020-07-06] MEDS ORDERED: METOPROLOL TARTRATE 25 MG TABLET PO SCH (11:00)
[2020-07-06] MEDS ORDERED: diphenhydrAMINE CAP 25 MG CAPSULE PO ONE (11:00)
[2020-07-06] MEDS ORDERED: MAGNESIUM SULF RIDER 2 GM/50 ML PREMIX IV ONE (11:00)
[2020-07-06] MEDS ORDERED: DIAZEPAM 5 MG TABLET PO ONE (11:00)
[2020-07-06] MEDS: FLUTICASONE 50 MCG NASAL SPRAY 16 GM BOTTLE BOTH NARES SCH ×2 (11:08→20:27)
[2020-07-06 11:17] LABS: CKMB % 8.9 %
[2020-07-06 11:19] LABS: Troponin I 7.73 NG/ML (0.00-0.045)
[2020-07-06] MEDS: BUDESONIDE/FORMOTEROL 160-4.5 INHALER 6 GM INH SCH ×2 (12:04→20:27)
[2020-07-06] MEDS: MOXIFLOXACIN 0.5% OPH SOLN 3 ML BOTTLE LEFT EYE SCH ×2 (14:15→20:26)
[2020-07-06] MEDS: NEBIVOLOL 10 MG TABLET PO SCH (14:33)
[2020-07-06] MEDS ORDERED: LIDOCAINE 1% 20 ML VIAL ONE (14:34)
[2020-07-06] MEDS ORDERED: HYDROmorphone 2 MG/1 ML VIAL ONE (14:37)
[2020-07-06] MEDS ORDERED: MIDAZOLAM 2 MG/2 ML VIAL ONE ×2 (14:37→14:49)
[2020-07-06] MEDS ORDERED: METOPROLOL TARTRATE 5 MG/5 ML VIAL IV ONE (14:57)
[2020-07-06] MEDS ORDERED: POTASSIUM CHLORIDE 20 MEQ TABLET PO ONE (15:00)
[2020-07-06] MEDS ORDERED: ENOXAPARIN 30 MG/0.3 ML SYRINGE ONE ×2 (15:42→16:56)
[2020-07-06] MEDS ORDERED: TIROFIBAN 5,000 MCG/100 ML PREMIX IV ONE (15:46)
[2020-07-06] MEDS: TRIFLURIDINE 1% OPH SOLN 7.5 ML BOTTLE LEFT EYE SCH ×5 (15:48→22:00)
[2020-07-06] MEDS ORDERED: NITROGLYCERIN DRIP 50 MG/250 ML BOTTLE IV ONE (16:22)
[2020-07-06] MEDS ORDERED: PRASUGREL 10 MG TABLET ONE (16:25)
[2020-07-06] MEDS ORDERED: HYDROmorphone 2 MG/1 ML VIAL IV PRN (16:41)
[2020-07-06] MEDS: LEVOFLOXACIN INJ 750 MG/150 ML PREMIX IV SCH (17:29)
[2020-07-06] MEDS: FUROSEMIDE 40 MG/4 ML VIAL IV SCH (17:30)
[2020-07-06] MEDS: methylPREDNISolone SOD SUC 40 MG/1 ML VIAL IV SCH (17:40)
[2020-07-06 18:16] LABS: CKMB % 9.3 %
[2020-07-06 18:19] LABS: Troponin I 7.99 NG/ML (0.00-0.045)
[2020-07-06] MEDS ORDERED: SIMVASTATIN 40 MG TABLET PO SCH (21:00)
[2020-07-06] MEDS: VANCOMYCIN INJ 1,250 MG in SODIUM CHLORIDE 0.9% 250 ML IV SCH (22:34)
[2020-07-06] MEDS ORDERED: ZALEPLON 5 MG CAPSULE PO PRN (23:15)
[2020-07-07] MEDS: ALBUTEROL/IPRATROPIUM 3 ML NEB RESP TX SCH ×5 (03:26→19:44)
[2020-07-07] MEDS: VANCOMYCIN INJ 1,250 MG in SODIUM CHLORIDE 0.9% 250 ML IV SCH ×3 (04:00→16:25)
[2020-07-07] MEDS: methylPREDNISolone SOD SUC 40 MG/1 ML VIAL IV SCH ×2 (05:06→16:24)
[2020-07-07 06:19] LABS: Calcium 8.1 MG/DL (8.5-10.1); Hematocrit 32.1 VOL% (35.7-47.0); Hemoglobin 10.2 GM/DL (12.0-16.0); Immature Granulocytes % 0.7 %; Immature Granulocytes Absolute 0.07 #; Lymphocytes # 0.4 10*3/uL (1.4-4.0); Lymphocytes % 3.8 % (21.3-54.2); Mean Corpuscular HGB Conc 31.8 GM/DL (32-36); Mean Corpuscular Volume 98.8 FL (87-102); Mean Platelet Volume 10.5 FL (9.6-12.0); Monocytes % 4.5 % (1.7-12.7); Osmolality,Calculated 281.4 MOS/KG (273-304); Platelet Count 217 T/CUMM (130-400); Potassium 3.9 MMOL/L (3.5-5.1); Red Blood Count 3.25 MC/CUMM (3.8-5.5); Red Cell Distribution Width 15.7 % (9.3-17.3); White Blood Count 9.5 T/CUMM (4-12)
[2020-07-07 06:49] LABS: CKMB % 11.7 %
[2020-07-07 06:50] LABS: Troponin I 3.48 NG/ML (0.00-0.045)
[2020-07-07 06:52] LABS: Albumin 2.8 G/DL (3.4-5.0); Bilirubin,Total 1.4 MG/DL (0.2-1.0); Calcium 8.3 MG/DL (8.5-10.1); Osmolality,Calculated 279.5 MOS/KG (273-304); Potassium 3.9 MMOL/L (3.5-5.1); Total Protein 5.9 G/DL (6.4-8.2)
[2020-07-07] MEDS: TRIFLURIDINE 1% OPH SOLN 7.5 ML BOTTLE LEFT EYE SCH ×9 (06:58→22:47)
[2020-07-07 07:48] LABS: Lymphocytes 4 % (20-55); Segmented Neutrophils 96 % (50-85); Total Cells Counted 100
[2020-07-07 07:49] LABS: Platelet Estimate Adequate
[2020-07-07] MEDS ORDERED: amLODIPine 2.5 MG TABLET PO SCH (09:00)
[2020-07-07] MEDS: FUROSEMIDE 40 MG/4 ML VIAL IV SCH (09:39)
[2020-07-07] MEDS: NEBIVOLOL 10 MG TABLET PO SCH (09:39)
[2020-07-07] MEDS: MULTIVITAMIN (CENTRUM) TABLET PO SCH (09:40)
[2020-07-07] MEDS: PRASUGREL 10 MG TABLET PO SCH (09:40)
[2020-07-07] MEDS: PANTOPRAZOLE 40 MG TABLET PO SCH (09:40)
[2020-07-07] MEDS: POTASSIUM CHLORIDE 20 MEQ TABLET PO SCH (09:40)
[2020-07-07] MEDS: CYANOCOBALAMIN 500 MCG TABLET PO SCH (09:40)
[2020-07-07] MEDS: COENZYME Q10 100 MG CAPSULE PO SCH (09:40)
[2020-07-07] MEDS: ASPIRIN CHEW 81 MG TABLET PO SCH (09:40)
[2020-07-07] MEDS: CHOLECALCIFEROL 1,000 UNIT TABLET PO SCH (09:40)
[2020-07-07] MEDS: MOXIFLOXACIN 0.5% OPH SOLN 3 ML BOTTLE LEFT EYE SCH ×3 (09:41→21:35)
[2020-07-07] MEDS: ENOXAPARIN 40 MG/0.4 ML SYRINGE SUBCUT SCH (09:41)
[2020-07-07] MEDS: FLUTICASONE 50 MCG NASAL SPRAY 16 GM BOTTLE BOTH NARES SCH ×2 (09:44→21:36)
[2020-07-07] MEDS: BUDESONIDE/FORMOTEROL 160-4.5 INHALER 6 GM INH SCH ×2 (10:17→21:37)
[2020-07-07] MEDS: ROSUVASTATIN 20 MG TABLET PO SCH (11:53)
[2020-07-07] MEDS: SPIRONOLACTONE 25 MG TABLET PO SCH (11:53)
[2020-07-07] MEDS: LEVOFLOXACIN INJ 750 MG/150 ML PREMIX IV SCH (14:16)
[2020-07-07] MEDS ORDERED: SODIUM CHLORIDE 0.9% 250 ML IV ONE (15:45)
[2020-07-07] MEDS: NICOTINE 21 MG/24 HR PATCH TRANSDERM PRN (16:33)
[2020-07-07] MEDS: ZALEPLON 5 MG CAPSULE PO PRN (21:35)
[2020-07-08] MEDS: ALBUTEROL/IPRATROPIUM 3 ML NEB RESP TX SCH ×7 (00:18→23:17)
[2020-07-08] MEDS: methylPREDNISolone SOD SUC 40 MG/1 ML VIAL IV SCH ×2 (05:08→17:22)
[2020-07-08] MEDS: VANCOMYCIN INJ 1,250 MG in SODIUM CHLORIDE 0.9% 250 ML IV SCH ×2 (05:09→17:21)
[2020-07-08] MEDS: TRIFLURIDINE 1% OPH SOLN 7.5 ML BOTTLE LEFT EYE SCH ×9 (05:39→22:05)
[2020-07-08 07:04] LABS: Hematocrit 30.9 VOL% (35.7-47.0); Hemoglobin 9.6 GM/DL (12.0-16.0); Immature Granulocytes % 0.6 %; Immature Granulocytes Absolute 0.04 #; Lymphocytes # 0.5 10*3/uL (1.4-4.0); Lymphocytes % 7.6 % (21.3-54.2); Mean Corpuscular HGB Conc 31.1 GM/DL (32-36); Mean Platelet Volume 10.1 FL (9.6-12.0); Monocytes % 5.5 % (1.7-12.7); Neutrophils % 86.3 % (38.7-73.9); Platelet Count 182 T/CUMM (130-400); Red Blood Count 3.12 MC/CUMM (3.8-5.5); Red Cell Distribution Width 16.2 % (9.3-17.3); White Blood Count 7.1 T/CUMM (4-12)
[2020-07-08 07:25] LABS: Albumin 2.9 G/DL (3.4-5.0); Bilirubin,Total 1.3 MG/DL (0.2-1.0); Calcium 8.4 MG/DL (8.5-10.1); Potassium 3.8 MMOL/L (3.5-5.1); Total Protein 5.7 G/DL (6.4-8.2)
[2020-07-08] MEDS: MOXIFLOXACIN 0.5% OPH SOLN 3 ML BOTTLE LEFT EYE SCH ×3 (08:37→20:57)
[2020-07-08] MEDS: COENZYME Q10 100 MG CAPSULE PO SCH (08:38)
[2020-07-08] MEDS: PRASUGREL 10 MG TABLET PO SCH (08:39)
[2020-07-08] MEDS: MULTIVITAMIN (CENTRUM) TABLET PO SCH (08:39)
[2020-07-08] MEDS: CHOLECALCIFEROL 1,000 UNIT TABLET PO SCH (08:39)
[2020-07-08] MEDS: PANTOPRAZOLE 40 MG TABLET PO SCH (08:39)
[2020-07-08] MEDS: ASPIRIN CHEW 81 MG TABLET PO SCH (08:39)
[2020-07-08] MEDS: ROSUVASTATIN 20 MG TABLET PO SCH (08:39)
[2020-07-08] MEDS: CYANOCOBALAMIN 500 MCG TABLET PO SCH (08:39)
[2020-07-08] MEDS: FLUTICASONE 50 MCG NASAL SPRAY 16 GM BOTTLE BOTH NARES SCH ×2 (08:42→20:58)
[2020-07-08] MEDS: ENOXAPARIN 40 MG/0.4 ML SYRINGE SUBCUT SCH (08:42)
[2020-07-08] MEDS ORDERED: FUROSEMIDE 40 MG/4 ML VIAL IV SCH (09:00)
[2020-07-08] MEDS: NEBIVOLOL 10 MG TABLET PO SCH (10:14)
[2020-07-08] MEDS: BUDESONIDE/FORMOTEROL 160-4.5 INHALER 6 GM INH SCH ×2 (10:14→20:58)
[2020-07-08] MEDS: SPIRONOLACTONE 25 MG TABLET PO SCH (11:25)
[2020-07-08] MEDS: LEVOFLOXACIN INJ 750 MG/150 ML PREMIX IV SCH (14:26)
[2020-07-08] MEDS: ZALEPLON 5 MG CAPSULE PO PRN (20:56)
[2020-07-08] MEDS: ACETYLCYSTEINE 20% 800 MG/4 ML VIAL RESP TX SCH (23:17)
[2020-07-09] MEDS: ALBUTEROL/IPRATROPIUM 3 ML NEB RESP TX SCH ×5 (02:40→19:32)
[2020-07-09] MEDS: methylPREDNISolone SOD SUC 40 MG/1 ML VIAL IV SCH ×2 (05:18→18:02)
[2020-07-09] MEDS: TRIFLURIDINE 1% OPH SOLN 7.5 ML BOTTLE LEFT EYE SCH ×9 (05:21→22:15)
[2020-07-09] MEDS: VANCOMYCIN INJ 1,250 MG in SODIUM CHLORIDE 0.9% 250 ML IV SCH (05:51)
[2020-07-09 05:55] LABS: Hematocrit 32.3 VOL% (35.7-47.0); Hemoglobin 10.1 GM/DL (12.0-16.0); Immature Granulocytes % 0.6 %; Immature Granulocytes Absolute 0.04 #; Lymphocytes # 0.5 10*3/uL (1.4-4.0); Lymphocytes % 7.4 % (21.3-54.2); Mean Corpuscular HGB Conc 31.3 GM/DL (32-36); Mean Corpuscular Volume 99.1 FL (87-102); Mean Platelet Volume 10.4 FL (9.6-12.0); Monocytes % 5.4 % (1.7-12.7); Neutrophils % 86.6 % (38.7-73.9); Platelet Count 169 T/CUMM (130-400); Red Blood Count 3.26 MC/CUMM (3.8-5.5); Red Cell Distribution Width 16.2 % (9.3-17.3); White Blood Count 6.6 T/CUMM (4-12)
[2020-07-09 06:39] LABS: Calcium 8.5 MG/DL (8.5-10.1); Osmolality,Calculated 293.7 MOS/KG (273-304)
[2020-07-09] MEDS: ACETYLCYSTEINE 20% 800 MG/4 ML VIAL RESP TX SCH ×2 (07:33→15:00)
[2020-07-09] MEDS ORDERED: FUROSEMIDE 40 MG/4 ML VIAL IV ONE (09:32)
[2020-07-09] MEDS: COENZYME Q10 100 MG CAPSULE PO SCH (09:48)
[2020-07-09] MEDS: PRASUGREL 10 MG TABLET PO SCH (09:48)
[2020-07-09] MEDS: ROSUVASTATIN 20 MG TABLET PO SCH (09:48)
[2020-07-09] MEDS: ASPIRIN CHEW 81 MG TABLET PO SCH (09:48)
[2020-07-09] MEDS: PANTOPRAZOLE 40 MG TABLET PO SCH (09:49)
[2020-07-09] MEDS: CYANOCOBALAMIN 500 MCG TABLET PO SCH (09:49)
[2020-07-09] MEDS: CHOLECALCIFEROL 1,000 UNIT TABLET PO SCH (09:49)
[2020-07-09] MEDS: FOLIC ACID 1 MG TABLET PO SCH (09:49)
[2020-07-09] MEDS: MOXIFLOXACIN 0.5% OPH SOLN 3 ML BOTTLE LEFT EYE SCH ×3 (09:49→21:35)
[2020-07-09] MEDS: MULTIVITAMIN (CENTRUM) TABLET PO SCH (09:49)
[2020-07-09] MEDS: BUDESONIDE/FORMOTEROL 160-4.5 INHALER 6 GM INH SCH ×2 (09:50→21:31)
[2020-07-09] MEDS: FLUTICASONE 50 MCG NASAL SPRAY 16 GM BOTTLE BOTH NARES SCH ×2 (09:50→21:29)
[2020-07-09] MEDS: SPIRONOLACTONE 25 MG TABLET PO SCH (09:50)
[2020-07-09] MEDS: NEBIVOLOL 10 MG TABLET PO SCH (09:50)
[2020-07-09] MEDS: LOPERAMIDE 2 MG CAPSULE PO PRN (10:03)
[2020-07-09] MEDS: LEVOFLOXACIN INJ 750 MG/150 ML PREMIX IV SCH (16:21)
[2020-07-09] MEDS: NICOTINE 21 MG/24 HR PATCH TRANSDERM PRN (16:29)
[2020-07-09] MEDS: ZALEPLON 5 MG CAPSULE PO PRN (21:36)
[2020-07-10] MEDS: ALBUTEROL/IPRATROPIUM 3 ML NEB RESP TX SCH ×6 (00:35→20:37)
[2020-07-10] MEDS: ACETYLCYSTEINE 20% 800 MG/4 ML VIAL RESP TX SCH (02:28)
[2020-07-10] MEDS: methylPREDNISolone SOD SUC 40 MG/1 ML VIAL IV SCH ×2 (04:58→17:13)
[2020-07-10] MEDS: TRIFLURIDINE 1% OPH SOLN 7.5 ML BOTTLE LEFT EYE SCH ×9 (05:47→21:30)
[2020-07-10 06:10] LABS: Basophils % 0.2 % (0.0-0.8); Hematocrit 32.4 VOL% (35.7-47.0); Hemoglobin 10.4 GM/DL (12.0-16.0); Immature Granulocytes % 0.9 %; Immature Granulocytes Absolute 0.05 #; Lymphocytes # 0.5 10*3/uL (1.4-4.0); Lymphocytes % 9.2 % (21.3-54.2); Mean Corpuscular HGB Conc 32.1 GM/DL (32-36); Mean Corpuscular Volume 97.3 FL (87-102); Monocytes % 5.5 % (1.7-12.7); Neutrophils % 84.2 % (38.7-73.9); Platelet Count 155 T/CUMM (130-400); Red Blood Count 3.33 MC/CUMM (3.8-5.5); Red Cell Distribution Width 15.9 % (9.3-17.3); White Blood Count 5.5 T/CUMM (4-12)
[2020-07-10 06:44] LABS: Calcium 8.6 MG/DL (8.5-10.1); Potassium 3.6 MMOL/L (3.5-5.1)
[2020-07-10] MEDS: MOXIFLOXACIN 0.5% OPH SOLN 3 ML BOTTLE LEFT EYE SCH ×3 (09:03→21:30)
[2020-07-10] MEDS: CYANOCOBALAMIN 500 MCG TABLET PO SCH (09:04)
[2020-07-10] MEDS: PRASUGREL 10 MG TABLET PO SCH (09:04)
[2020-07-10] MEDS: ROSUVASTATIN 20 MG TABLET PO SCH (09:04)
[2020-07-10] MEDS: COENZYME Q10 100 MG CAPSULE PO SCH (09:05)
[2020-07-10] MEDS: ASPIRIN CHEW 81 MG TABLET PO SCH (09:05)
[2020-07-10] MEDS: MULTIVITAMIN (CENTRUM) TABLET PO SCH (09:05)
[2020-07-10] MEDS: NEBIVOLOL 5 MG TABLET PO SCH (09:05)
[2020-07-10] MEDS: FOLIC ACID 1 MG TABLET PO SCH (09:05)
[2020-07-10] MEDS: PANTOPRAZOLE 40 MG TABLET PO SCH (09:05)
[2020-07-10] MEDS: CHOLECALCIFEROL 1,000 UNIT TABLET PO SCH (09:05)
[2020-07-10] MEDS: BUDESONIDE/FORMOTEROL 160-4.5 INHALER 6 GM INH SCH ×2 (09:06→21:20)
[2020-07-10] MEDS: FLUTICASONE 50 MCG NASAL SPRAY 16 GM BOTTLE BOTH NARES SCH ×2 (09:06→21:30)
[2020-07-10] MEDS: LOPERAMIDE 2 MG CAPSULE PO PRN (10:14)
[2020-07-10] MEDS: ISOSORBIDE MONONITRATE 30 MG TABLET PO SCH (11:37)
[2020-07-10] MEDS: LEVOFLOXACIN 750 MG TABLET PO SCH (17:07)
[2020-07-10] MEDS: ZALEPLON 5 MG CAPSULE PO PRN (21:30)
[2020-07-11] MEDS: ALBUTEROL/IPRATROPIUM 3 ML NEB RESP TX SCH ×7 (00:58→23:46)
[2020-07-11] MEDS: methylPREDNISolone SOD SUC 40 MG/1 ML VIAL IV SCH ×2 (04:56→16:26)
[2020-07-11] MEDS: TRIFLURIDINE 1% OPH SOLN 7.5 ML BOTTLE LEFT EYE SCH ×7 (05:00→21:49)
[2020-07-11 05:22] LABS: Basophils % 0.2 % (0.0-0.8); Hematocrit 32.2 VOL% (35.7-47.0); Hemoglobin 10.3 GM/DL (12.0-16.0); Immature Granulocytes % 0.6 %; Immature Granulocytes Absolute 0.03 #; Lymphocytes # 0.3 10*3/uL (1.4-4.0); Lymphocytes % 6.5 % (21.3-54.2); Mean Corpuscular Volume 97.9 FL (87-102); Mean Platelet Volume 10.4 FL (9.6-12.0); Monocytes % 5.2 % (1.7-12.7); Neutrophils % 87.5 % (38.7-73.9); Platelet Count 145 T/CUMM (130-400); Red Blood Count 3.29 MC/CUMM (3.8-5.5); Red Cell Distribution Width 15.9 % (9.3-17.3)
[2020-07-11 05:56] LABS: Osmolality,Calculated 294.7 MOS/KG (273-304); Potassium 3.8 MMOL/L (3.5-5.1)
[2020-07-11 05:57] LABS: Bilirubin,Direct 0.24 MG/DL (0.0-0.20); Bilirubin,Indirect 0.8 MG/DL (0.0-1.0); Total Protein 5.8 G/DL (6.4-8.2)
[2020-07-11] MEDS: FLUTICASONE 50 MCG NASAL SPRAY 16 GM BOTTLE BOTH NARES SCH ×2 (09:00→20:42)
[2020-07-11] MEDS: ROSUVASTATIN 20 MG TABLET PO SCH (09:39)
[2020-07-11] MEDS: ASPIRIN CHEW 81 MG TABLET PO SCH (09:39)
[2020-07-11] MEDS: COENZYME Q10 100 MG CAPSULE PO SCH (09:39)
[2020-07-11] MEDS: CHOLECALCIFEROL 1,000 UNIT TABLET PO SCH (09:40)
[2020-07-11] MEDS: PANTOPRAZOLE 40 MG TABLET PO SCH (09:40)
[2020-07-11] MEDS: MULTIVITAMIN (CENTRUM) TABLET PO SCH (09:40)
[2020-07-11] MEDS: FOLIC ACID 1 MG TABLET PO SCH (09:40)
[2020-07-11] MEDS: CYANOCOBALAMIN 500 MCG TABLET PO SCH (09:40)
[2020-07-11] MEDS: MOXIFLOXACIN 0.5% OPH SOLN 3 ML BOTTLE LEFT EYE SCH (09:42)
[2020-07-11] MEDS: PRASUGREL 10 MG TABLET PO SCH (09:48)
[2020-07-11] MEDS: LEVOFLOXACIN 750 MG TABLET PO SCH (09:48)
[2020-07-11] MEDS: NEBIVOLOL 5 MG TABLET PO SCH (10:09)
[2020-07-11] MEDS: ISOSORBIDE MONONITRATE 30 MG TABLET PO SCH (10:09)
[2020-07-11] MEDS: BUDESONIDE/FORMOTEROL 160-4.5 INHALER 6 GM INH SCH ×2 (10:09→20:42)
[2020-07-11] MEDS: FUROSEMIDE 40 MG/4 ML VIAL IV SCH (16:26)
[2020-07-11] MEDS: ALPRAZolam 0.25 MG TABLET PO PRN (16:26)
[2020-07-11] MEDS: ZALEPLON 5 MG CAPSULE PO PRN (20:42)
[2020-07-12] MEDS: ALBUTEROL/IPRATROPIUM 3 ML NEB RESP TX SCH ×6 (03:20→23:59)
[2020-07-12] MEDS: methylPREDNISolone SOD SUC 40 MG/1 ML VIAL IV SCH ×2 (05:01→17:30)
[2020-07-12] MEDS: TRIFLURIDINE 1% OPH SOLN 7.5 ML BOTTLE LEFT EYE SCH ×5 (05:08→21:50)
[2020-07-12] MEDS ORDERED: PROMETHAZINE 25 MG/1 ML VIAL IM ONE (06:45)
[2020-07-12] MEDS ORDERED: MEPERIDINE 50 MG/1 ML VIAL IM ONE (06:45)
[2020-07-12] MEDS ORDERED: MIDAZOLAM 2 MG/2 ML VIAL ONE (07:06)
[2020-07-12] MEDS ORDERED: LIDOCAINE 2% VISCOUS 100 ML BOTTLE SWISH/SPIT ONE (07:15)
[2020-07-12] MEDS ORDERED: LIDOCAINE 2% 20 ML VIAL RESP TX ONE (07:15)
[2020-07-12] MEDS ORDERED: LIDOCAINE 1% 20 ML VIAL MISC INJ ONE (07:15)
[2020-07-12] MEDS ORDERED: MIDAZOLAM 10 MG/2 ML VIAL IV ONE (07:15)
[2020-07-12 08:24] LABS: Eosinophils % 0.2 % (0.00-10.9); Hematocrit 34.1 VOL% (35.7-47.0); Hemoglobin 10.8 GM/DL (12.0-16.0); Immature Granulocytes % 0.7 %; Immature Granulocytes Absolute 0.04 #; Lymphocytes # 0.3 10*3/uL (1.4-4.0); Lymphocytes % 4.5 % (21.3-54.2); Mean Corpuscular HGB Conc 31.7 GM/DL (32-36); Mean Corpuscular Volume 97.2 FL (87-102); Mean Platelet Volume 9.9 FL (9.6-12.0); Monocytes % 5.9 % (1.7-12.7); Neutrophils % 88.7 % (38.7-73.9); Platelet Count 148 T/CUMM (130-400); Red Blood Count 3.51 MC/CUMM (3.8-5.5); Red Cell Distribution Width 15.9 % (9.3-17.3)
[2020-07-12 08:43] LABS: Osmolality,Calculated 294.7 MOS/KG (273-304); Potassium 3.7 MMOL/L (3.5-5.1)
[2020-07-12 09:02] LABS: Eosinophils 1 % (0-10); Hypochromasia 1+; Lymphocytes 7 % (20-55); Microcytosis 1+; Platelet Estimate Adequate; Segmented Neutrophils 89 % (50-85); Total Cells Counted 100
[2020-07-12] MEDS: PRASUGREL 10 MG TABLET PO SCH (09:29)
[2020-07-12] MEDS: PANTOPRAZOLE 40 MG TABLET PO SCH (09:29)
[2020-07-12] MEDS: CYANOCOBALAMIN 500 MCG TABLET PO SCH (09:29)
[2020-07-12] MEDS: ROSUVASTATIN 20 MG TABLET PO SCH (09:29)
[2020-07-12] MEDS: NICOTINE 21 MG/24 HR PATCH TRANSDERM PRN (09:29)
[2020-07-12] MEDS: CHOLECALCIFEROL 1,000 UNIT TABLET PO SCH (09:29)
[2020-07-12] MEDS: LEVOFLOXACIN 750 MG TABLET PO SCH (09:29)
[2020-07-12] MEDS: MULTIVITAMIN (CENTRUM) TABLET PO SCH (09:29)
[2020-07-12] MEDS: COENZYME Q10 100 MG CAPSULE PO SCH (09:29)
[2020-07-12] MEDS: ASPIRIN CHEW 81 MG TABLET PO SCH (09:29)
[2020-07-12] MEDS: FOLIC ACID 1 MG TABLET PO SCH (09:29)
[2020-07-12] MEDS: FUROSEMIDE 40 MG/4 ML VIAL IV SCH (09:30)
[2020-07-12] MEDS: ALPRAZolam 0.25 MG TABLET PO PRN (09:35)
[2020-07-12] MEDS: BUDESONIDE/FORMOTEROL 160-4.5 INHALER 6 GM INH SCH (09:40)
[2020-07-12] MEDS: FLUTICASONE 50 MCG NASAL SPRAY 16 GM BOTTLE BOTH NARES SCH ×2 (09:40→20:38)
[2020-07-12] MEDS: MAGNESIUM SULF RIDER 2 GM/50 ML PREMIX IV ONE ×2 (10:40→18:55)
[2020-07-12] MEDS: NEBIVOLOL 5 MG TABLET PO SCH (13:29)
[2020-07-12] MEDS: ISOSORBIDE MONONITRATE 30 MG TABLET PO SCH (13:29)
[2020-07-13] MEDS: ZALEPLON 5 MG CAPSULE PO PRN (00:40)
[2020-07-13] MEDS: ALBUTEROL/IPRATROPIUM 3 ML NEB RESP TX SCH ×2 (03:55→08:32)
[2020-07-13] MEDS: TRIFLURIDINE 1% OPH SOLN 7.5 ML BOTTLE LEFT EYE SCH ×2 (05:11→09:16)
[2020-07-13] MEDS: methylPREDNISolone SOD SUC 40 MG/1 ML VIAL IV SCH (05:11)
[2020-07-13 06:05] LABS: Hematocrit 33.7 VOL% (35.7-47.0); Hemoglobin 10.4 GM/DL (12.0-16.0); Immature Granulocytes % 0.7 %; Immature Granulocytes Absolute 0.04 #; Lymphocytes # 0.5 10*3/uL (1.4-4.0); Lymphocytes % 7.5 % (21.3-54.2); Mean Corpuscular HGB Conc 30.9 GM/DL (32-36); Mean Corpuscular Volume 98.3 FL (87-102); Mean Platelet Volume 10.5 FL (9.6-12.0); Monocytes % 11.2 % (1.7-12.7); Neutrophils % 80.6 % (38.7-73.9); Platelet Count 159 T/CUMM (130-400); Red Blood Count 3.43 MC/CUMM (3.8-5.5); Red Cell Distribution Width 15.8 % (9.3-17.3)
[2020-07-13 06:59] LABS: Calcium 8.8 MG/DL (8.5-10.1); Osmolality,Calculated 294.6 MOS/KG (273-304); Potassium 3.1 MMOL/L (3.5-5.1)
[2020-07-13] MEDS ORDERED: POTASSIUM CHLORIDE 20 MEQ TABLET PO ONE (07:14)
[2020-07-13] MEDS: BUDESONIDE/FORMOTEROL 160-4.5 INHALER 6 GM INH SCH ×2 (07:40→09:11)
[2020-07-13 08:01] VITALS: BP 136/64
[2020-07-13] MEDS ORDERED: predniSONE 20 MG TABLET PO SCH (09:00)
[2020-07-13] MEDS ORDERED: FUROSEMIDE 40 MG TABLET PO SCH (09:00)
[2020-07-13] MEDS: CHOLECALCIFEROL 1,000 UNIT TABLET PO SCH (09:04)
[2020-07-13] MEDS: ASPIRIN CHEW 81 MG TABLET PO SCH (09:04)
[2020-07-13] MEDS: PANTOPRAZOLE 40 MG TABLET PO SCH (09:04)
[2020-07-13] MEDS: MULTIVITAMIN (CENTRUM) TABLET PO SCH (09:04)
[2020-07-13] MEDS: FOLIC ACID 1 MG TABLET PO SCH (09:05)
[2020-07-13] MEDS: CYANOCOBALAMIN 500 MCG TABLET PO SCH (09:05)
[2020-07-13] MEDS: ROSUVASTATIN 20 MG TABLET PO SCH (09:05)
[2020-07-13] MEDS: LEVOFLOXACIN 750 MG TABLET PO SCH (09:05)
[2020-07-13] MEDS: PRASUGREL 10 MG TABLET PO SCH (09:05)
[2020-07-13] MEDS: COENZYME Q10 100 MG CAPSULE PO SCH (09:05)
[2020-07-13] MEDS: ISOSORBIDE MONONITRATE 30 MG TABLET PO SCH (09:07)
[2020-07-13] MEDS: NEBIVOLOL 5 MG TABLET PO SCH (09:07)
[2020-07-13] MEDS: FLUTICASONE 50 MCG NASAL SPRAY 16 GM BOTTLE BOTH NARES SCH (09:10)
[2020-07-13] MEDS: NICOTINE 21 MG/24 HR PATCH TRANSDERM PRN (09:13)
[2020-07-13 09:36] LABS: Albumin 3.1 G/DL (3.4-5.0); Bilirubin,Direct 0.17 MG/DL (0.0-0.20); Bilirubin,Indirect 0.3 MG/DL (0.0-1.0); Bilirubin,Total 0.5 MG/DL (0.2-1.0)
[2020-07-14] MEDS ORDERED: MAGNESIUM OXIDE 400 MG TABLET PO SCH (09:00)
== END 2020-07-13 10:51 | disposition home or self-care (01) | DRG 981 ==
LOC: SUATTDRO → N.ED 04:16 → N.EDINP 05:40 → SUATTDRO 05:40 → N.EDINP 07:11 → N.5E 07:21 → N.TELEN 17:10
PROVIDERS: ADMIT Internal Medicine; ATTEND Internal Medicine

== ENCOUNTER 2020-08-31 11:21 | Inpatient (IN) ==
[2020-08-31] MEDS ORDERED: PANTOPRAZOLE 40 MG VIAL IV STA (11:51)
[2020-08-31] MEDS ORDERED: SODIUM CHLORIDE 0.9% 500 ML IV STA (11:51)
[2020-08-31] MEDS ORDERED: SODIUM CHLORIDE 0.9% 1,000 ML IV STA (12:33)
[2020-08-31] MEDS ORDERED: ONDANSETRON 4 MG/2 ML VIAL IV STA (12:35)
[2020-08-31 12:36] LABS: Basophils # 0.1 10*3/uL (0.0-0.2); Basophils % 0.7 % (0.0-0.8); Eosinophils % 0.2 % (0.00-10.9); Hematocrit 26.3 VOL% (35.7-47.0); Hemoglobin 8.9 GM/DL (12.0-16.0); Immature Granulocytes % 1.1 %; Immature Granulocytes Absolute 0.14 #; Lymphocytes # 0.9 10*3/uL (1.4-4.0); Lymphocytes % 7.6 % (21.3-54.2); Mean Corpuscular HGB Conc 33.8 GM/DL (32-36); Mean Corpuscular Volume 93.6 FL (87-102); Mean Platelet Volume 10.1 FL (9.6-12.0); Monocytes % 9.3 % (1.7-12.7); Neutrophils % 81.1 % (38.7-73.9); Platelet Count 336 T/CUMM (130-400); Red Blood Count 2.81 MC/CUMM (3.8-5.5); Red Cell Distribution Width 15.3 % (9.3-17.3); White Blood Count 12.3 T/CUMM (4-12)
[2020-08-31] MEDS ORDERED: ONDANSETRON 4 MG/2 ML VIAL ONE (12:36)
[2020-08-31] MEDS ORDERED: ALBUTEROL 2.5 MG/3 ML NEB RESP TX STA (12:41)
[2020-08-31 12:44] LABS: INR 1.1; PT Patient Result 12.4 SECS (10.5-12.0)
[2020-08-31 12:58] LABS: Alanine Aminotransferase 101 U/L (13-56); Albumin 2.9 G/DL (3.4-5.0); Alkaline Phosphatase 342 U/L (45-117); Aspartate Amino Transferase 361 U/L (0-37); Blood Urea Nitrogen 14 MG/DL (7-18); Calcium 8.8 MG/DL (8.5-10.1); Carbon Dioxide 30 MMOL/L (21-32); Estimated Glom Filtration Rate 68 ML/MIN; Glucose 95 MG/DL (74-106); Osmolality,Calculated 244.1 MOS/KG (273-304); Potassium 2.7 MMOL/L (3.5-5.1); Sodium 121 MMOL/L (136-145)
[2020-08-31] MEDS ORDERED: THIAMINE 200 MG/2 ML VIAL IV STA (13:15)
[2020-08-31 13:24] LABS: Blood, Urine Negative (Negative); Glucose,Urine (UA) Negative (Negative); Ketones,Urine Negative (Negative); Mucus,Urine Occasional /LPF (Occasional); Nitrite,Urine Negative (Negative); Protein,Urine Negative; RBC,Urine 2 /HPF (0-4); Urine Appearance CLOUDY (Clear); Urine Color Amber (Yellow); Urine Specific Gravity 1.016 (1.001-1.035)
[2020-08-31 13:25] LABS: Bilirubin,Urine Small mg/dL (Negative)
[2020-08-31] MEDS ORDERED: POTASSIUM CHLORIDE 20 MEQ TABLET PO ONE (13:58)
[2020-08-31 14:28] LABS: Albumin 2.8 G/DL (3.4-5.0); Bilirubin,Direct 7.86 MG/DL (0.0-0.20); Bilirubin,Indirect 3.3 MG/DL (0.0-1.0); Bilirubin,Total 11.2 MG/DL (0.2-1.0); Total Protein 5.9 G/DL (6.4-8.2)
[2020-08-31 15:03] LABS: Hepatitis B Core IgM Quant 0.06 Index; Hepatitis B Surface Ag Quant < 0.10 Index; Hepatitis B Surface Ag Result Non-Reactive (NonReactive); Hepatitis C Virus Ab Quant < 0.02 Index; Hepatitis C Virus Ab Result Non-Reactive (NonReactive)
[2020-08-31] MEDS: SODIUM CHLORIDE 0.9% 1,000 ML IV SCH (16:24)
[2020-08-31] MEDS: RIFAXIMIN 550 MG TABLET PO SCH ×2 (16:30→21:18)
[2020-08-31] MEDS ORDERED: methylPREDNISolone SOD SUC 125 MG/2 ML VIAL IV ONE (17:30)
[2020-08-31] MEDS: LACTULOSE 20 GM/30 ML UDCUP PO SCH (18:30)
[2020-08-31] MEDS ORDERED: NITROGLYCERIN SL 0.4 MG TABLET SL PRN (18:39)
[2020-08-31] MEDS: NICOTINE 21 MG/24 HR PATCH TRANSDERM PRN (20:10)
[2020-08-31] MEDS: hydrOXYzine HCL 25 MG TABLET PO PRN (20:41)
[2020-08-31] MEDS: ZALEPLON 5 MG CAPSULE PO PRN (21:18)
[2020-08-31] MEDS: SPIRONOLACTONE 25 MG TABLET PO SCH (21:18)
[2020-08-31] MEDS: NEBIVOLOL 5 MG TABLET PO SCH ×2 (21:45→22:18)
[2020-09-01 00:02] LABS: Potassium 3.3 MMOL/L (3.5-5.1)
[2020-09-01] MEDS: LACTULOSE 20 GM/30 ML UDCUP PO SCH ×3 (00:46→21:44)
[2020-09-01] MEDS: POTASSIUM CHLORIDE 20 MEQ/15 ML UDCUP PO SCH ×3 (00:47→05:37)
[2020-09-01] MEDS: methylPREDNISolone SOD SUC 40 MG/1 ML VIAL IV SCH ×3 (00:47→16:49)
[2020-09-01] MEDS: SODIUM CHLORIDE 0.9% 1,000 ML IV SCH ×4 (00:48→22:18)
[2020-09-01] MEDS: MAGNESIUM SULF RIDER 2 GM/50 ML PREMIX IV PRN (00:48)
[2020-09-01] MEDS: ALPRAZolam 0.25 MG TABLET PO PRN ×2 (01:34→14:29)
[2020-09-01 04:22] LABS: Basophils % 0.1 % (0.0-0.8); Hematocrit 21.5 VOL% (35.7-47.0); Hemoglobin 7.3 GM/DL (12.0-16.0); Immature Granulocytes % 1.1 %; Immature Granulocytes Absolute 0.11 #; Lymphocytes # 0.4 10*3/uL (1.4-4.0); Lymphocytes % 4.5 % (21.3-54.2); Mean Corpuscular Volume 93.9 FL (87-102); Mean Platelet Volume 10.2 FL (9.6-12.0); Monocytes % 1.9 % (1.7-12.7); NRBC # 0.05 10*3/uL; Neutrophils % 92.4 % (38.7-73.9); Platelet Count 237 T/CUMM (130-400); Red Blood Count 2.29 MC/CUMM (3.8-5.5); Red Cell Distribution Width 15.3 % (9.3-17.3); White Blood Count 9.8 T/CUMM (4-12)
[2020-09-01 05:14] LABS: Albumin 2.2 G/DL (3.4-5.0); Calcium 8.1 MG/DL (8.5-10.1); Osmolality,Calculated 262.1 MOS/KG (273-304); Potassium 3.7 MMOL/L (3.5-5.1); Thyroid Stimulating Hormone 3.34 uIU/ml (0.358-3.74); Total Protein 4.9 G/DL (6.4-8.2)
[2020-09-01] MEDS ORDERED: SODIUM CHLORIDE 0.9% 1,000 ML IV PRN ×2 (06:44→11:17)
[2020-09-01] MEDS: hydrOXYzine HCL 25 MG TABLET PO PRN ×3 (06:54→17:59)
[2020-09-01 07:19] LABS: Hypochromasia 1+; Lymphocytes 4 % (20-55); Microcytosis 1+; Segmented Neutrophils 96 % (50-85); Total Cells Counted 100
[2020-09-01 07:20] LABS: Macrocytosis Slight; Platelet Estimate Adequate
[2020-09-01] MEDS: CHOLECALCIFEROL 1,000 UNIT TABLET PO SCH (08:30)
[2020-09-01] MEDS: COENZYME Q10 100 MG CAPSULE PO SCH (08:30)
[2020-09-01] MEDS: SPIRONOLACTONE 25 MG TABLET PO SCH ×2 (08:30→20:19)
[2020-09-01] MEDS: POTASSIUM CHLORIDE 20 MEQ TABLET PO SCH (08:30)
[2020-09-01] MEDS: RIFAXIMIN 550 MG TABLET PO SCH ×2 (08:30→21:44)
[2020-09-01] MEDS: MULTIVITAMIN (CENTRUM) TABLET PO SCH (08:30)
[2020-09-01] MEDS: ASPIRIN CHEW 81 MG TABLET PO SCH (08:30)
[2020-09-01] MEDS: PANTOPRAZOLE 40 MG TABLET PO SCH (08:30)
[2020-09-01] MEDS: NEBIVOLOL 5 MG TABLET PO SCH (08:30)
[2020-09-01] MEDS: CYANOCOBALAMIN 500 MCG TABLET PO SCH (08:30)
[2020-09-01] MEDS: FUROSEMIDE 40 MG/4 ML VIAL IV SCH ×2 (08:49→16:49)
[2020-09-01] MEDS ORDERED: ISOSORBIDE MONONITRATE 30 MG TABLET PO SCH (09:00)
[2020-09-01] MEDS ORDERED: CYANOCOBALAMIN 500 MCG TABLET PO SCH (09:00)
[2020-09-01 10:41] LABS: % Iron Saturation 81.9 % (18-50); Albumin 2.3 G/DL (3.4-5.0); Bilirubin,Direct 7.78 MG/DL (0.0-0.20); Bilirubin,Indirect 2.2 MG/DL (0.0-1.0)
[2020-09-01] MEDS ORDERED: FUROSEMIDE 20 MG/2 ML VIAL IV PRN (11:17)
[2020-09-01 11:24] LABS: Hematocrit 22.4 VOL% (35.7-47.0); Hemoglobin 7.3 GM/DL (12.0-16.0)
[2020-09-01] MEDS: chlordiazePOXIDE 10 MG CAPSULE PO SCH ×3 (14:29→22:54)
[2020-09-01] MEDS: NYSTATIN CREAM 15 GM TUBE TOP SCH ×2 (15:35→21:45)
[2020-09-01] MEDS: ALBUTEROL 2.5 MG/3 ML NEB RESP TX PRN (16:28)
[2020-09-01 16:45] LABS: Hematocrit 21.4 VOL% (35.7-47.0)
[2020-09-01] MEDS ORDERED: SODIUM CHLORIDE 0.9% 500 ML IV ONE (19:05)
[2020-09-01] MEDS: ZALEPLON 5 MG CAPSULE PO PRN (21:44)
[2020-09-01] MEDS ORDERED: NOREPINEPHRINE 8 MG in SODIUM CHLORIDE 0.9% 242 ML IV PRN (22:00)
[2020-09-01] MEDS ORDERED: NOREPINEPHRINE 4 MG/4 ML VIAL IV ONE (22:06)
[2020-09-01 23:45] LABS: Basophils # 0.1 10*3/uL (0.0-0.2); Basophils % 0.2 % (0.0-0.8); Hematocrit 29.1 VOL% (35.7-47.0); Hemoglobin 9.7 GM/DL (12.0-16.0); Immature Granulocytes % 2.9 %; Immature Granulocytes Absolute 0.79 #; Lymphocytes # 1.1 10*3/uL (1.4-4.0); Lymphocytes % 3.9 % (21.3-54.2); Mean Corpuscular HGB Conc 33.3 GM/DL (32-36); Mean Corpuscular Volume 94.8 FL (87-102); Mean Platelet Volume 10.4 FL (9.6-12.0); Monocytes % 6.5 % (1.7-12.7); NRBC # 0.13 10*3/uL; Neutrophils % 86.5 % (38.7-73.9); Platelet Count 416 T/CUMM (130-400); Red Blood Count 3.07 MC/CUMM (3.8-5.5); Red Cell Distribution Width 16.5 % (9.3-17.3); White Blood Count 27.7 T/CUMM (4-12)
[2020-09-02] MEDS: ALBUTEROL 2.5 MG/3 ML NEB RESP TX PRN (00:42)
[2020-09-02 01:27] LABS: Lymphocytes 3 % (20-55); Nucleated Red Blood Cells 1 (0-5); Segmented Neutrophils 91 % (50-85); Total Cells Counted 100
[2020-09-02 01:28] LABS: Platelet Estimate Increased; Stomatocytes 1+
[2020-09-02 01:29] LABS: Polychromasia Slight; Target Cells Slight
[2020-09-02] MEDS: methylPREDNISolone SOD SUC 40 MG/1 ML VIAL IV SCH ×3 (03:10→20:40)
[2020-09-02] MEDS: ZALEPLON 5 MG CAPSULE PO PRN ×2 (04:55→20:40)
[2020-09-02 04:57] LABS: Basophils # 0.1 10*3/uL (0.0-0.2); Basophils % 0.4 % (0.0-0.8); Hematocrit 28.8 VOL% (35.7-47.0); Hemoglobin 9.8 GM/DL (12.0-16.0); Immature Granulocytes % 3.4 %; Immature Granulocytes Absolute 0.97 #; Lymphocytes # 1.2 10*3/uL (1.4-4.0); Lymphocytes % 4.2 % (21.3-54.2); Mean Corpuscular Volume 92.9 FL (87-102); Mean Platelet Volume 10.2 FL (9.6-12.0); Monocytes % 6.8 % (1.7-12.7); NRBC # 0.21 10*3/uL; Neutrophils % 85.2 % (38.7-73.9); Platelet Count 444 T/CUMM (130-400); Red Cell Distribution Width 16.7 % (9.3-17.3); White Blood Count 28.4 T/CUMM (4-12)
[2020-09-02 05:20] LABS: Calcium 8.1 MG/DL (8.5-10.1); Potassium 3.2 MMOL/L (3.5-5.1)
[2020-09-02 05:24] LABS: Albumin 2.8 G/DL (3.4-5.0); Bilirubin,Direct 9.37 MG/DL (0.0-0.20); Bilirubin,Indirect 2.6 MG/DL (0.0-1.0); Hypochromasia 1+; Lymphocytes 3 % (20-55); Microcytosis 1+; Nucleated Red Blood Cells 2 (0-5); Platelet Estimate Adequate; Segmented Neutrophils 89 % (50-85); Total Cells Counted 100; Total Protein 5.7 G/DL (6.4-8.2)
[2020-09-02] MEDS: ASPIRIN CHEW 81 MG TABLET PO SCH (08:51)
[2020-09-02] MEDS: CHOLECALCIFEROL 1,000 UNIT TABLET PO SCH (08:51)
[2020-09-02] MEDS: POTASSIUM CHLORIDE 20 MEQ TABLET PO SCH (08:51)
[2020-09-02] MEDS: CYANOCOBALAMIN 500 MCG TABLET PO SCH (08:51)
[2020-09-02] MEDS: COENZYME Q10 100 MG CAPSULE PO SCH (08:51)
[2020-09-02] MEDS: MULTIVITAMIN (CENTRUM) TABLET PO SCH (08:51)
[2020-09-02] MEDS: PANTOPRAZOLE 40 MG TABLET PO SCH (08:51)
[2020-09-02] MEDS: LACTULOSE 20 GM/30 ML UDCUP PO SCH ×2 (08:52→21:00)
[2020-09-02] MEDS: RIFAXIMIN 550 MG TABLET PO SCH ×2 (08:52→20:40)
[2020-09-02] MEDS: NYSTATIN CREAM 15 GM TUBE TOP SCH ×3 (09:54→21:00)
[2020-09-02] MEDS: Fluticasone-Umeclidin-Vilanter [Trelegy Ellipta] 100-62.5-25 mcg INH SCH (09:56)
[2020-09-02] MEDS ORDERED: SKIN HEALING OINT (AQUAPHOR) 50 GM TUBE TOP PRN (11:12)
[2020-09-02] MEDS: hydrOXYzine HCL 25 MG TABLET PO PRN (11:40)
[2020-09-02] MEDS: ALPRAZolam 0.25 MG TABLET PO PRN ×2 (13:27→23:22)
[2020-09-02] MEDS: SODIUM CHLORIDE 0.9% 1,000 ML IV SCH (18:16)
[2020-09-02] MEDS ORDERED: MORPHINE 2 MG/1 ML SYRINGE ONE (19:59)
[2020-09-02] MEDS: NICOTINE 21 MG/24 HR PATCH TRANSDERM PRN (23:22)
[2020-09-03] MEDS: hydrOXYzine HCL 25 MG TABLET PO PRN ×3 (00:20→22:29)
[2020-09-03] MEDS ORDERED: NOREPINEPHRINE 8 MG in SODIUM CHLORIDE 0.9% 242 ML IV PRN (03:22)
[2020-09-03 04:12] LABS: Basophils % 0.2 % (0.0-0.8); Eosinophils % 0.1 % (0.00-10.9); Hematocrit 25.2 VOL% (35.7-47.0); Hemoglobin 8.2 GM/DL (12.0-16.0); Immature Granulocytes % 5.3 %; Immature Granulocytes Absolute 0.94 #; Lymphocytes # 1.1 10*3/uL (1.4-4.0); Lymphocytes % 6.1 % (21.3-54.2); Mean Corpuscular HGB Conc 32.5 GM/DL (32-36); Mean Corpuscular Volume 97.3 FL (87-102); Mean Platelet Volume 9.9 FL (9.6-12.0); Monocytes % 5.7 % (1.7-12.7); NRBC # 0.23 10*3/uL; Neutrophils % 82.6 % (38.7-73.9); Platelet Count 255 T/CUMM (130-400); Red Blood Count 2.59 MC/CUMM (3.8-5.5); Red Cell Distribution Width 17.3 % (9.3-17.3); White Blood Count 17.7 T/CUMM (4-12)
[2020-09-03 04:28] LABS: Osmolality,Calculated 283.4 MOS/KG (273-304); Potassium 3.3 MMOL/L (3.5-5.1)
[2020-09-03 04:32] LABS: Albumin 2.5 G/DL (3.4-5.0); Bilirubin,Direct 7.75 MG/DL (0.0-0.20); Bilirubin,Indirect 1.7 MG/DL (0.0-1.0); Bilirubin,Total 9.4 MG/DL (0.2-1.0); Total Protein 5.2 G/DL (6.4-8.2)
[2020-09-03 04:37] LABS: Hypochromasia 1+; Lymphocytes 7 % (20-55); Microcytosis 1+; Platelet Estimate Adequate; Segmented Neutrophils 87 % (50-85); Total Cells Counted 100
[2020-09-03] MEDS: ALBUTEROL 2.5 MG/3 ML NEB RESP TX PRN ×2 (04:47→20:19)
[2020-09-03] MEDS: methylPREDNISolone SOD SUC 40 MG/1 ML VIAL IV SCH ×2 (09:14→20:27)
[2020-09-03] MEDS: CYANOCOBALAMIN 500 MCG TABLET PO SCH (09:15)
[2020-09-03] MEDS: ASPIRIN CHEW 81 MG TABLET PO SCH (09:15)
[2020-09-03] MEDS: COENZYME Q10 100 MG CAPSULE PO SCH (09:15)
[2020-09-03] MEDS: VITAMIN E 400 UNIT CAPSULE PO SCH ×2 (09:15→20:27)
[2020-09-03] MEDS: Fluticasone-Umeclidin-Vilanter [Trelegy Ellipta] 100-62.5-25 mcg INH SCH (09:16)
[2020-09-03] MEDS: CHOLECALCIFEROL 1,000 UNIT TABLET PO SCH (09:16)
[2020-09-03] MEDS: POTASSIUM CHLORIDE 20 MEQ TABLET PO SCH (09:16)
[2020-09-03] MEDS: PANTOPRAZOLE 40 MG TABLET PO SCH (09:16)
[2020-09-03] MEDS: RIFAXIMIN 550 MG TABLET PO SCH ×2 (09:16→20:27)
[2020-09-03] MEDS: LACTULOSE 20 GM/30 ML UDCUP PO SCH ×2 (09:17→20:41)
[2020-09-03] MEDS: NYSTATIN CREAM 15 GM TUBE TOP SCH ×3 (09:17→22:57)
[2020-09-03] MEDS: MULTIVITAMIN (CENTRUM) TABLET PO SCH (09:18)
[2020-09-03] MEDS: MORPHINE 2 MG/1 ML SYRINGE IV PRN ×2 (10:20→19:06)
[2020-09-03] MEDS ORDERED: POTASSIUM CHLORIDE 20 MEQ TABLET PO ONE (11:56)
[2020-09-03] MEDS: SODIUM CHLORIDE 0.9% 1,000 ML IV SCH (16:41)
[2020-09-03] MEDS: diphenhydrAMINE CAP 25 MG CAPSULE PO PRN (18:50)
[2020-09-03] MEDS: ONDANSETRON 4 MG/2 ML VIAL IV PRN (20:27)
[2020-09-03] MEDS: ZALEPLON 5 MG CAPSULE PO PRN (22:30)
[2020-09-04] MEDS: ONDANSETRON 4 MG/2 ML VIAL IV PRN (04:04)
[2020-09-04] MEDS: MORPHINE 2 MG/1 ML SYRINGE IV PRN ×2 (04:11→21:53)
[2020-09-04] MEDS: ALBUTEROL 2.5 MG/3 ML NEB RESP TX PRN (04:35)
[2020-09-04 05:01] LABS: Basophils % 0.2 % (0.0-0.8); Eosinophils % 0.1 % (0.00-10.9); Hematocrit 26.9 VOL% (35.7-47.0); Hemoglobin 8.5 GM/DL (12.0-16.0); Immature Granulocytes % 8.3 %; Immature Granulocytes Absolute 1.18 #; Lymphocytes # 0.9 10*3/uL (1.4-4.0); Lymphocytes % 6.3 % (21.3-54.2); Mean Corpuscular HGB Conc 31.6 GM/DL (32-36); Mean Corpuscular Volume 98.2 FL (87-102); Monocytes % 4.1 % (1.7-12.7); NRBC # 0.27 10*3/uL; Platelet Count 244 T/CUMM (130-400); Red Blood Count 2.74 MC/CUMM (3.8-5.5); Red Cell Distribution Width 17.6 % (9.3-17.3); White Blood Count 14.2 T/CUMM (4-12)
[2020-09-04 05:22] LABS: Eosinophils 1 % (0-10); Hypochromasia 1+; Lymphocytes 15 % (20-55); Microcytosis 1+; Nucleated Red Blood Cells 4 (0-5); Platelet Estimate Adequate; Segmented Neutrophils 76 % (50-85); Total Cells Counted 100
[2020-09-04 05:47] LABS: Albumin 2.6 G/DL (3.4-5.0); Bilirubin,Direct 7.14 MG/DL (0.0-0.20); Bilirubin,Indirect 1.6 MG/DL (0.0-1.0); Bilirubin,Total 8.7 MG/DL (0.2-1.0); Total Protein 5.3 G/DL (6.4-8.2)
[2020-09-04 05:49] LABS: Albumin 2.6 G/DL (3.4-5.0); Bilirubin,Total 8.7 MG/DL (0.2-1.0); Calcium 8.1 MG/DL (8.5-10.1); Osmolality,Calculated 288.4 MOS/KG (273-304); Potassium 3.9 MMOL/L (3.5-5.1); Total Protein 5.3 G/DL (6.4-8.2)
[2020-09-04] MEDS: SODIUM CHLORIDE 0.9% 500 ML IV SCH (08:32)
[2020-09-04] MEDS ORDERED: GLYCOPYRROLATE 0.4 MG/2 ML VIAL ONE (08:34)
[2020-09-04] MEDS ORDERED: propofoL 200 MG/20 ML VIAL IV ONE (08:34)
[2020-09-04] MEDS ORDERED: LIDOCAINE 100 MG/5 ML SYRINGE ONE (08:34)
[2020-09-04] MEDS ORDERED: POTASSIUM PHOSPHATE 30 MMOL in SODIUM CHLORIDE 0.9% 250 ML IV ONE (09:00)
[2020-09-04] MEDS: COENZYME Q10 100 MG CAPSULE PO SCH (11:08)
[2020-09-04] MEDS: CYANOCOBALAMIN 500 MCG TABLET PO SCH (11:08)
[2020-09-04] MEDS: PANTOPRAZOLE 40 MG TABLET PO SCH (11:09)
[2020-09-04] MEDS: RIFAXIMIN 550 MG TABLET PO SCH ×2 (11:09→21:45)
[2020-09-04] MEDS: VITAMIN E 400 UNIT CAPSULE PO SCH ×2 (11:09→21:45)
[2020-09-04] MEDS: CHOLECALCIFEROL 1,000 UNIT TABLET PO SCH (11:09)
[2020-09-04] MEDS: ASPIRIN CHEW 81 MG TABLET PO SCH (11:09)
[2020-09-04] MEDS: methylPREDNISolone SOD SUC 40 MG/1 ML VIAL IV SCH ×2 (11:10→21:53)
[2020-09-04] MEDS: NYSTATIN CREAM 15 GM TUBE TOP SCH ×3 (11:10→21:44)
[2020-09-04] MEDS: BISACODYL 5 MG TABLET PO SCH ×2 (11:12→16:48)
[2020-09-04] MEDS: Fluticasone-Umeclidin-Vilanter [Trelegy Ellipta] 100-62.5-25 mcg INH SCH (11:12)
[2020-09-04] MEDS: LACTULOSE 20 GM/30 ML UDCUP PO SCH ×2 (11:12→21:44)
[2020-09-04] MEDS: MULTIVITAMIN (CENTRUM) TABLET PO SCH (11:12)
[2020-09-04] MEDS: SODIUM CHLORIDE 0.9% 1,000 ML IV SCH (11:13)
[2020-09-04] MEDS: POTASSIUM PHOS/SOD PHOS POWDER 250 MG PACK PO SCH ×2 (14:50→21:47)
[2020-09-04] MEDS ORDERED: POLYETHYLENE GLYCOL POWDER 255 GM BOTTLE PO ONE (18:00)
[2020-09-04] MEDS ORDERED: MAGNESIUM CITRATE 300 ML BOTTLE PO ONE (21:00)
[2020-09-04] MEDS: diphenhydrAMINE CAP 25 MG CAPSULE PO PRN (21:47)
[2020-09-05] MEDS: ALBUTEROL 2.5 MG/3 ML NEB RESP TX PRN ×2 (00:21→17:16)
[2020-09-05] MEDS: BISACODYL 5 MG TABLET PO SCH (01:05)
[2020-09-05] MEDS: hydrOXYzine HCL 25 MG TABLET PO PRN ×4 (02:42→23:41)
[2020-09-05 06:28] LABS: Basophils % 0.3 % (0.0-0.8); Hematocrit 27.6 VOL% (35.7-47.0); Hemoglobin 8.8 GM/DL (12.0-16.0); Immature Granulocytes % 6.3 %; Immature Granulocytes Absolute 0.61 #; Lymphocytes # 0.5 10*3/uL (1.4-4.0); Lymphocytes % 4.9 % (21.3-54.2); Mean Corpuscular HGB Conc 31.9 GM/DL (32-36); Mean Corpuscular Volume 100.7 FL (87-102); Mean Platelet Volume 10.1 FL (9.6-12.0); Monocytes % 5.2 % (1.7-12.7); NRBC # 0.15 10*3/uL; Neutrophils % 83.3 % (38.7-73.9); Platelet Count 190 T/CUMM (130-400); Red Blood Count 2.74 MC/CUMM (3.8-5.5); Red Cell Distribution Width 19.4 % (9.3-17.3); White Blood Count 9.7 T/CUMM (4-12)
[2020-09-05 06:49] LABS: Hypochromasia 1+; Lymphocytes 6 % (20-55); Microcytosis 1+; Nucleated Red Blood Cells 1 (0-5); Platelet Estimate Adequate; Segmented Neutrophils 91 % (50-85); Total Cells Counted 100
[2020-09-05 06:58] LABS: Albumin 2.7 G/DL (3.4-5.0); Bilirubin,Total 9.7 MG/DL (0.20-1.00); Calcium 8.4 MG/DL (8.5-10.1); Osmolality,Calculated 288.5 MOS/KG (273-304); Total Protein 5.5 G/DL (6.4-8.2)
[2020-09-05] MEDS: ONDANSETRON 4 MG/2 ML VIAL IV PRN ×2 (07:27→14:49)
[2020-09-05] MEDS ORDERED: SPIRONOLACTONE 50 MG TABLET PO SCH (09:00)
[2020-09-05] MEDS: MULTIVITAMIN (CENTRUM) TABLET PO SCH (10:04)
[2020-09-05] MEDS: COENZYME Q10 100 MG CAPSULE PO SCH (10:04)
[2020-09-05] MEDS: ASPIRIN CHEW 81 MG TABLET PO SCH (10:04)
[2020-09-05] MEDS: CHOLECALCIFEROL 1,000 UNIT TABLET PO SCH (10:04)
[2020-09-05] MEDS: VITAMIN E 400 UNIT CAPSULE PO SCH ×2 (10:04→21:17)
[2020-09-05] MEDS: CYANOCOBALAMIN 500 MCG TABLET PO SCH (10:05)
[2020-09-05] MEDS: PANTOPRAZOLE 40 MG TABLET PO SCH (10:05)
[2020-09-05] MEDS: POTASSIUM CHLORIDE 20 MEQ TABLET PO SCH (10:05)
[2020-09-05] MEDS: RIFAXIMIN 550 MG TABLET PO SCH ×2 (10:05→21:16)
[2020-09-05] MEDS: POTASSIUM PHOS/SOD PHOS POWDER 250 MG PACK PO SCH ×2 (10:06→21:16)
[2020-09-05] MEDS: LACTULOSE 20 GM/30 ML UDCUP PO SCH (10:06)
[2020-09-05] MEDS: methylPREDNISolone SOD SUC 40 MG/1 ML VIAL IV SCH ×2 (10:09→21:17)
[2020-09-05] MEDS: Fluticasone-Umeclidin-Vilanter [Trelegy Ellipta] 100-62.5-25 mcg INH SCH (10:14)
[2020-09-05] MEDS: NYSTATIN CREAM 15 GM TUBE TOP SCH ×3 (10:14→21:18)
[2020-09-05] MEDS: SODIUM CHLORIDE 0.9% 1,000 ML IV SCH (14:45)
[2020-09-05 16:27] LABS: Bacteria,Urine Many /HPF (Few); Blood, Urine Negative (Negative); Glucose,Urine (UA) Negative (Negative); Ketones,Urine Negative (Negative); Mucus,Urine Moderate /LPF (Occasional); Nitrite,Urine Negative (Negative); Protein,Urine Negative; Squamous Epithelial Cell,Urine Occasional /HPF (0-10); Urine Appearance CLOUDY (Clear); Urine Color Red (Yellow); Urine Specific Gravity 1.025 (1.001-1.035)
[2020-09-05 16:29] LABS: Bilirubin,Urine Small mg/dL (Negative)
[2020-09-05] MEDS: MENTHOL/ZINC OXIDE OINT 71 GM JAR TOP SCH ×2 (16:57→21:18)
[2020-09-05] MEDS: diphenhydrAMINE CAP 25 MG CAPSULE PO PRN (16:58)
[2020-09-05] MEDS: SODIUM CHLORIDE 0.9% 500 ML IV SCH (17:29)
[2020-09-05] MEDS ORDERED: CALCIUM CARBONATE CHEW 500 MG TABLET PO PRN (20:36)
[2020-09-05] MEDS: PROCHLORPERAZINE 5 MG TABLET PO SCH (21:16)
[2020-09-05] MEDS: traZODone 50 MG TABLET PO SCH (21:18)
[2020-09-06] MEDS: ALPRAZolam 0.25 MG TABLET PO PRN ×2 (03:15→11:28)
[2020-09-06] MEDS: diphenhydrAMINE CAP 25 MG CAPSULE PO PRN (04:30)
[2020-09-06 06:56] LABS: Albumin 2.3 G/DL (3.4-5.0); Bilirubin,Total 10.3 MG/DL (0.20-1.00); Calcium 8.1 MG/DL (8.5-10.1); Osmolality,Calculated 290.3 MOS/KG (273-304); Potassium 4.9 MMOL/L (3.5-5.1)
[2020-09-06 07:09] LABS: AFP Tumor 5.8 NG/ML (0-8); Cancer Antigen 19-9 39.15 U/ML (0-35)
[2020-09-06] MEDS: COENZYME Q10 100 MG CAPSULE PO SCH (08:49)
[2020-09-06] MEDS: PANTOPRAZOLE 40 MG TABLET PO SCH (08:49)
[2020-09-06] MEDS: CYANOCOBALAMIN 500 MCG TABLET PO SCH (08:49)
[2020-09-06] MEDS: POTASSIUM CHLORIDE 20 MEQ TABLET PO SCH (08:49)
[2020-09-06] MEDS: ASPIRIN CHEW 81 MG TABLET PO SCH (08:50)
[2020-09-06] MEDS: PROCHLORPERAZINE 5 MG TABLET PO SCH ×3 (08:50→20:28)
[2020-09-06] MEDS: MULTIVITAMIN (CENTRUM) TABLET PO SCH (08:50)
[2020-09-06] MEDS: POTASSIUM PHOS/SOD PHOS POWDER 250 MG PACK PO SCH ×2 (10:31→20:28)
[2020-09-06] MEDS: NYSTATIN CREAM 15 GM TUBE TOP SCH ×3 (10:31→20:30)
[2020-09-06] MEDS: Fluticasone-Umeclidin-Vilanter [Trelegy Ellipta] 100-62.5-25 mcg INH SCH (10:31)
[2020-09-06] MEDS: SODIUM CHLORIDE 0.9% 500 ML IV SCH (10:31)
[2020-09-06] MEDS: CHOLECALCIFEROL 1,000 UNIT TABLET PO SCH (10:32)
[2020-09-06] MEDS: methylPREDNISolone SOD SUC 40 MG/1 ML VIAL IV SCH ×2 (10:32→20:28)
[2020-09-06] MEDS: VITAMIN E 400 UNIT CAPSULE PO SCH ×2 (10:32→20:28)
[2020-09-06] MEDS: RIFAXIMIN 550 MG TABLET PO SCH ×2 (10:32→20:28)
[2020-09-06] MEDS: MENTHOL/ZINC OXIDE OINT 71 GM JAR TOP SCH ×2 (10:33→20:30)
[2020-09-06] MEDS: LACTULOSE 20 GM/30 ML UDCUP PO SCH (10:33)
[2020-09-06] MEDS: SODIUM CHLORIDE 0.9% 1,000 ML IV SCH (11:34)
[2020-09-06] MEDS: hydrOXYzine HCL 25 MG TABLET PO PRN (17:15)
[2020-09-06] MEDS: PHENYLEPHRINE 2.5% RECTAL PRN (20:27)
[2020-09-06] MEDS: traZODone 50 MG TABLET PO SCH (20:29)
[2020-09-06] MEDS: ALBUTEROL 2.5 MG/3 ML NEB RESP TX PRN (21:00)
[2020-09-07] MEDS: SODIUM CHLORIDE 0.9% 1,000 ML IV SCH (07:57)
[2020-09-07] MEDS: CHOLECALCIFEROL 1,000 UNIT TABLET PO SCH (09:05)
[2020-09-07] MEDS: VITAMIN E 400 UNIT CAPSULE PO SCH ×2 (09:05→21:27)
[2020-09-07] MEDS: MULTIVITAMIN (CENTRUM) TABLET PO SCH (09:05)
[2020-09-07] MEDS: PANTOPRAZOLE 40 MG TABLET PO SCH (09:05)
[2020-09-07] MEDS: PROCHLORPERAZINE 5 MG TABLET PO SCH ×3 (09:05→21:27)
[2020-09-07] MEDS: POTASSIUM PHOS/SOD PHOS POWDER 250 MG PACK PO SCH (09:05)
[2020-09-07] MEDS: RIFAXIMIN 550 MG TABLET PO SCH ×2 (09:05→21:27)
[2020-09-07] MEDS: COENZYME Q10 100 MG CAPSULE PO SCH (09:05)
[2020-09-07] MEDS: POTASSIUM CHLORIDE 20 MEQ TABLET PO SCH (09:05)
[2020-09-07] MEDS: ASPIRIN CHEW 81 MG TABLET PO SCH (09:05)
[2020-09-07] MEDS: PHENYLEPHRINE 2.5% RECTAL PRN ×2 (09:06→21:28)
[2020-09-07] MEDS: MENTHOL/ZINC OXIDE OINT 71 GM JAR TOP SCH ×2 (09:06→21:28)
[2020-09-07] MEDS: Fluticasone-Umeclidin-Vilanter [Trelegy Ellipta] 100-62.5-25 mcg INH SCH (09:06)
[2020-09-07] MEDS: NYSTATIN CREAM 15 GM TUBE TOP SCH ×3 (09:06→21:28)
[2020-09-07] MEDS: methylPREDNISolone SOD SUC 40 MG/1 ML VIAL IV SCH ×2 (09:07→21:35)
[2020-09-07] MEDS: LACTULOSE 20 GM/30 ML UDCUP PO SCH (09:07)
[2020-09-07] MEDS: CYANOCOBALAMIN 500 MCG TABLET PO SCH (09:10)
[2020-09-07] MEDS: SODIUM CHLORIDE 0.9% 500 ML IV SCH (09:25)
[2020-09-07] MEDS: NICOTINE 21 MG/24 HR PATCH TRANSDERM PRN (13:40)
[2020-09-07 14:06] LABS: Mitochondrial Antibody (M2) <0.1 U
[2020-09-07] MEDS: ALBUTEROL 2.5 MG/3 ML NEB RESP TX PRN (16:45)
[2020-09-07] MEDS: traZODone 50 MG TABLET PO SCH (21:26)
[2020-09-07] MEDS: diphenhydrAMINE CAP 25 MG CAPSULE PO PRN (23:21)
[2020-09-08] MEDS: POTASSIUM PHOS/SOD PHOS POWDER 250 MG PACK PO SCH ×2 (01:50→09:49)
[2020-09-08 05:41] LABS: Basophils % 0.4 % (0.0-0.8); Eosinophils % 0.1 % (0.00-10.9); Hematocrit 28.6 VOL% (35.7-47.0); Hemoglobin 8.6 GM/DL (12.0-16.0); Immature Granulocytes % 2.1 %; Immature Granulocytes Absolute 0.18 #; Lymphocytes # 0.5 10*3/uL (1.4-4.0); Lymphocytes % 5.4 % (21.3-54.2); Mean Corpuscular HGB Conc 30.1 GM/DL (32-36); Mean Corpuscular Volume 104.4 FL (87-102); Mean Platelet Volume 10.9 FL (9.6-12.0); Monocytes % 6.5 % (1.7-12.7); NRBC # 0.05 10*3/uL; Neutrophils % 85.5 % (38.7-73.9); Platelet Count 141 T/CUMM (130-400); Red Blood Count 2.74 MC/CUMM (3.8-5.5); Red Cell Distribution Width 21.1 % (9.3-17.3); White Blood Count 8.5 T/CUMM (4-12)
[2020-09-08] MEDS: SODIUM CHLORIDE 0.9% 1,000 ML IV SCH ×2 (05:42→20:33)
[2020-09-08 05:59] LABS: Albumin 2.5 G/DL (3.4-5.0); Calcium 8.9 MG/DL (8.5-10.1); Osmolality,Calculated 291.1 MOS/KG (273-304); Potassium 4.5 MMOL/L (3.5-5.1)
[2020-09-08 06:05] LABS: Bilirubin,Total 12.2 MG/DL (0.20-1.00)
[2020-09-08] MEDS ORDERED: FUROSEMIDE 40 MG TABLET PO SCH (09:00)
[2020-09-08] MEDS: MENTHOL/ZINC OXIDE OINT 71 GM JAR TOP SCH ×2 (09:00→20:35)
[2020-09-08] MEDS: Fluticasone-Umeclidin-Vilanter [Trelegy Ellipta] 100-62.5-25 mcg INH SCH (09:11)
[2020-09-08] MEDS: PROCHLORPERAZINE 5 MG TABLET PO SCH ×3 (09:48→20:21)
[2020-09-08] MEDS: COENZYME Q10 100 MG CAPSULE PO SCH (09:48)
[2020-09-08] MEDS: MULTIVITAMIN (CENTRUM) TABLET PO SCH (09:48)
[2020-09-08] MEDS: CHOLECALCIFEROL 1,000 UNIT TABLET PO SCH (09:49)
[2020-09-08] MEDS: PANTOPRAZOLE 40 MG TABLET PO SCH (09:49)
[2020-09-08] MEDS: POTASSIUM CHLORIDE 20 MEQ TABLET PO SCH (09:49)
[2020-09-08] MEDS: VITAMIN E 400 UNIT CAPSULE PO SCH ×2 (09:49→20:21)
[2020-09-08] MEDS: methylPREDNISolone SOD SUC 40 MG/1 ML VIAL IV SCH ×2 (09:49→20:21)
[2020-09-08] MEDS: ASPIRIN CHEW 81 MG TABLET PO SCH (09:50)
[2020-09-08] MEDS: CYANOCOBALAMIN 500 MCG TABLET PO SCH (09:50)
[2020-09-08] MEDS: LACTULOSE 20 GM/30 ML UDCUP PO SCH (10:42)
[2020-09-08] MEDS: ALBUTEROL 2.5 MG/3 ML NEB RESP TX PRN ×2 (10:55→15:17)
[2020-09-08] MEDS: diphenhydrAMINE CAP 25 MG CAPSULE PO PRN ×2 (10:58→20:21)
[2020-09-08] MEDS: NYSTATIN CREAM 15 GM TUBE TOP SCH ×3 (10:58→20:36)
[2020-09-08] MEDS: FUROSEMIDE 40 MG/5 ML UDCUP PO SCH (16:02)
[2020-09-08] MEDS: ALPRAZolam 0.25 MG TABLET PO PRN (20:21)
[2020-09-08] MEDS: traZODone 50 MG TABLET PO SCH (20:21)
[2020-09-08] MEDS: HYDROCORTISONE 25 MG SUPP RECTAL SCH (20:34)
[2020-09-09] MEDS: POTASSIUM PHOS/SOD PHOS POWDER 250 MG PACK PO SCH ×3 (00:54→21:58)
[2020-09-09 07:20] LABS: Basophils % 0.1 % (0.0-0.8); Hemoglobin 8.8 GM/DL (12.0-16.0); Lymphocytes # 0.4 10*3/uL (1.4-4.0); Lymphocytes % 4.2 % (21.3-54.2); Mean Corpuscular HGB Conc 30.3 GM/DL (32-36); Mean Corpuscular Volume 105.5 FL (87-102); Mean Platelet Volume 11.3 FL (9.6-12.0); Monocytes % 5.6 % (1.7-12.7); NRBC # 0.03 10*3/uL; Neutrophils % 88.1 % (38.7-73.9); Platelet Count 142 T/CUMM (130-400); Red Blood Count 2.75 MC/CUMM (3.8-5.5); Red Cell Distribution Width 21.6 % (9.3-17.3); White Blood Count 9.8 T/CUMM (4-12)
[2020-09-09] MEDS: ALBUTEROL 2.5 MG/3 ML NEB RESP TX PRN ×2 (07:28→10:45)
[2020-09-09 07:51] LABS: Band Neutrophils 1 % (0-10); Hypochromasia Slight; Lymphocytes 5 % (20-55); Microcytosis 1+; Nucleated Red Blood Cells 1 (0-5); Segmented Neutrophils 87 % (50-85); Total Cells Counted 100
[2020-09-09 07:52] LABS: Platelet Estimate Adequate; Polychromasia Slight; Stomatocytes Slight
[2020-09-09 07:57] LABS: Albumin 2.3 G/DL (3.4-5.0); Calcium 8.5 MG/DL (8.5-10.1); Osmolality,Calculated 292.8 MOS/KG (273-304); Potassium 4.4 MMOL/L (3.5-5.1); Total Protein 5.1 G/DL (6.4-8.2)
[2020-09-09 08:03] LABS: Bilirubin,Total 12.1 MG/DL (0.20-1.00)
[2020-09-09] MEDS: CHOLECALCIFEROL 1,000 UNIT TABLET PO SCH (09:28)
[2020-09-09] MEDS: FUROSEMIDE 40 MG/5 ML UDCUP PO SCH ×2 (09:28→15:55)
[2020-09-09] MEDS: HYDROCORTISONE 25 MG SUPP RECTAL SCH ×2 (09:28→21:57)
[2020-09-09] MEDS: ASPIRIN CHEW 81 MG TABLET PO SCH (09:28)
[2020-09-09] MEDS: ALPRAZolam 0.25 MG TABLET PO PRN (09:29)
[2020-09-09] MEDS: COENZYME Q10 100 MG CAPSULE PO SCH (09:29)
[2020-09-09] MEDS: VITAMIN E 400 UNIT CAPSULE PO SCH ×2 (09:30→21:58)
[2020-09-09] MEDS: CYANOCOBALAMIN 500 MCG TABLET PO SCH (09:30)
[2020-09-09] MEDS: POTASSIUM CHLORIDE 20 MEQ TABLET PO SCH (09:30)
[2020-09-09] MEDS: MENTHOL/ZINC OXIDE OINT 71 GM JAR TOP SCH ×2 (09:30→21:57)
[2020-09-09] MEDS: PROCHLORPERAZINE 5 MG TABLET PO SCH ×3 (09:31→21:57)
[2020-09-09] MEDS: MULTIVITAMIN (CENTRUM) TABLET PO SCH (09:31)
[2020-09-09] MEDS: LACTULOSE 20 GM/30 ML UDCUP PO SCH (09:31)
[2020-09-09] MEDS: NYSTATIN CREAM 15 GM TUBE TOP SCH ×3 (09:32→21:58)
[2020-09-09] MEDS: Fluticasone-Umeclidin-Vilanter [Trelegy Ellipta] 100-62.5-25 mcg INH SCH (09:32)
[2020-09-09] MEDS: PANTOPRAZOLE 40 MG TABLET PO SCH (09:33)
[2020-09-09] MEDS: methylPREDNISolone SOD SUC 40 MG/1 ML VIAL IV SCH ×2 (09:33→21:09)
[2020-09-09] MEDS: MORPHINE 2 MG/1 ML SYRINGE IV PRN ×3 (10:41→23:42)
[2020-09-09] MEDS: hydrOXYzine HCL 25 MG TABLET PO PRN (10:51)
[2020-09-09] MEDS: diphenhydrAMINE CAP 25 MG CAPSULE PO PRN ×2 (17:42→23:42)
[2020-09-09] MEDS: SODIUM CHLORIDE 0.9% 1,000 ML IV SCH (17:43)
[2020-09-09] MEDS: traZODone 50 MG TABLET PO SCH (21:58)
[2020-09-10 07:05] LABS: Basophils % 0.1 % (0.0-0.8); Hematocrit 29.9 VOL% (35.7-47.0); Hemoglobin 9.2 GM/DL (12.0-16.0); Immature Granulocytes % 1.7 %; Immature Granulocytes Absolute 0.19 #; Lymphocytes # 0.4 10*3/uL (1.4-4.0); Lymphocytes % 3.8 % (21.3-54.2); Mean Corpuscular HGB Conc 30.8 GM/DL (32-36); Mean Platelet Volume 10.6 FL (9.6-12.0); NRBC # 0.02 10*3/uL; Neutrophils % 89.4 % (38.7-73.9); Platelet Count 151 T/CUMM (130-400); Red Blood Count 2.82 MC/CUMM (3.8-5.5); Red Cell Distribution Width 21.2 % (9.3-17.3)
[2020-09-10 07:31] LABS: Albumin 2.4 G/DL (3.4-5.0); Calcium 8.5 MG/DL (8.5-10.1); Osmolality,Calculated 282.5 MOS/KG (273-304); Potassium 4.2 MMOL/L (3.5-5.1); Total Protein 5.2 G/DL (6.4-8.2)
[2020-09-10 07:32] LABS: Hypochromasia 1+; Lymphocytes 6 % (20-55); Microcytosis 1+; Nucleated Red Blood Cells 1 (0-5); Platelet Estimate Adequate; Segmented Neutrophils 91 % (50-85); Total Cells Counted 100
[2020-09-10 07:33] LABS: Bilirubin,Total 12.3 MG/DL (0.20-1.00)
[2020-09-10] MEDS: PANTOPRAZOLE 40 MG TABLET PO SCH (08:59)
[2020-09-10] MEDS: COENZYME Q10 100 MG CAPSULE PO SCH (09:00)
[2020-09-10] MEDS: PROCHLORPERAZINE 5 MG TABLET PO SCH ×3 (09:00→21:02)
[2020-09-10] MEDS: MULTIVITAMIN (CENTRUM) TABLET PO SCH (09:00)
[2020-09-10] MEDS: POTASSIUM CHLORIDE 20 MEQ TABLET PO SCH (09:00)
[2020-09-10] MEDS: POTASSIUM PHOS/SOD PHOS POWDER 250 MG PACK PO SCH ×2 (09:01→20:51)
[2020-09-10] MEDS: HYDROCORTISONE 25 MG SUPP RECTAL SCH ×3 (09:01→20:51)
[2020-09-10] MEDS: LACTULOSE 20 GM/30 ML UDCUP PO SCH ×2 (09:01→10:03)
[2020-09-10] MEDS: FUROSEMIDE 40 MG/5 ML UDCUP PO SCH ×2 (09:02→15:21)
[2020-09-10] MEDS: ASPIRIN CHEW 81 MG TABLET PO SCH (09:03)
[2020-09-10] MEDS: CYANOCOBALAMIN 500 MCG TABLET PO SCH (09:03)
[2020-09-10] MEDS: CHOLECALCIFEROL 1,000 UNIT TABLET PO SCH (09:06)
[2020-09-10] MEDS: Fluticasone-Umeclidin-Vilanter [Trelegy Ellipta] 100-62.5-25 mcg INH SCH (09:07)
[2020-09-10] MEDS: NYSTATIN CREAM 15 GM TUBE TOP SCH ×3 (09:07→21:02)
[2020-09-10] MEDS: MENTHOL/ZINC OXIDE OINT 71 GM JAR TOP SCH ×2 (09:07→21:02)
[2020-09-10] MEDS: hydrOXYzine HCL 25 MG TABLET PO PRN ×2 (09:12→20:52)
[2020-09-10] MEDS: methylPREDNISolone SOD SUC 40 MG/1 ML VIAL IV SCH ×2 (09:14→21:01)
[2020-09-10] MEDS: VITAMIN E 400 UNIT CAPSULE PO SCH ×2 (09:15→20:52)
[2020-09-10] MEDS: SODIUM CHLORIDE 0.9% 1,000 ML IV SCH (13:21)
[2020-09-10] MEDS: traZODone 50 MG TABLET PO SCH (20:52)
[2020-09-10] MEDS: ALBUTEROL 2.5 MG/3 ML NEB RESP TX PRN (21:21)
[2020-09-10] MEDS: MORPHINE 2 MG/1 ML SYRINGE IV PRN (22:29)
[2020-09-10] MEDS: diphenhydrAMINE CAP 25 MG CAPSULE PO PRN (22:29)
[2020-09-11] MEDS: SODIUM CHLORIDE 0.9% 1,000 ML IV SCH (08:06)
[2020-09-11] MEDS: MULTIVITAMIN (CENTRUM) TABLET PO SCH (08:18)
[2020-09-11] MEDS: PANTOPRAZOLE 40 MG TABLET PO SCH (08:18)
[2020-09-11] MEDS: COENZYME Q10 100 MG CAPSULE PO SCH (08:19)
[2020-09-11] MEDS: PROCHLORPERAZINE 5 MG TABLET PO SCH ×3 (08:19→22:08)
[2020-09-11] MEDS: CHOLECALCIFEROL 1,000 UNIT TABLET PO SCH (08:19)
[2020-09-11] MEDS: VITAMIN E 400 UNIT CAPSULE PO SCH ×2 (08:19→21:24)
[2020-09-11] MEDS: CYANOCOBALAMIN 500 MCG TABLET PO SCH (08:20)
[2020-09-11] MEDS: POTASSIUM CHLORIDE 20 MEQ TABLET PO SCH (08:20)
[2020-09-11] MEDS: FUROSEMIDE 40 MG/5 ML UDCUP PO SCH ×2 (08:21→15:31)
[2020-09-11] MEDS: methylPREDNISolone SOD SUC 40 MG/1 ML VIAL IV SCH ×2 (08:22→21:23)
[2020-09-11] MEDS: MENTHOL/ZINC OXIDE OINT 71 GM JAR TOP SCH ×2 (08:25→21:24)
[2020-09-11] MEDS: NYSTATIN CREAM 15 GM TUBE TOP SCH ×3 (08:25→21:25)
[2020-09-11] MEDS: ASPIRIN CHEW 81 MG TABLET PO SCH (08:25)
[2020-09-11] MEDS: Fluticasone-Umeclidin-Vilanter [Trelegy Ellipta] 100-62.5-25 mcg INH SCH (08:25)
[2020-09-11] MEDS: POTASSIUM PHOS/SOD PHOS POWDER 250 MG PACK PO SCH ×2 (08:26→21:25)
[2020-09-11] MEDS: MORPHINE 2 MG/1 ML SYRINGE IV PRN ×4 (09:22→23:07)
[2020-09-11] MEDS: diphenhydrAMINE CAP 25 MG CAPSULE PO PRN ×3 (09:22→21:24)
[2020-09-11] MEDS: HYDROCORTISONE 25 MG SUPP RECTAL SCH ×2 (09:23→21:24)
[2020-09-11] MEDS: LACTULOSE 20 GM/30 ML UDCUP PO SCH (09:23)
[2020-09-11] MEDS: ALBUTEROL 2.5 MG/3 ML NEB RESP TX PRN ×2 (09:48→15:56)
[2020-09-11] MEDS: hydrOXYzine HCL 25 MG TABLET PO PRN (19:12)
[2020-09-11] MEDS: traZODone 50 MG TABLET PO SCH (21:24)
[2020-09-12] MEDS: SODIUM CHLORIDE 0.9% 500 ML IV SCH ×2 (01:51→10:42)
[2020-09-12] MEDS: SODIUM CHLORIDE 0.9% 1,000 ML IV SCH (04:27)
[2020-09-12] MEDS: ALBUTEROL 2.5 MG/3 ML NEB RESP TX PRN ×2 (04:28→21:30)
[2020-09-12 06:03] LABS: Basophils % 0.2 % (0.0-0.8); Eosinophils % 0.1 % (0.00-10.9); Hematocrit 29.3 VOL% (35.7-47.0); Hemoglobin 9.4 GM/DL (12.0-16.0); Immature Granulocytes % 1.8 %; Immature Granulocytes Absolute 0.22 #; Lymphocytes # 0.4 10*3/uL (1.4-4.0); Lymphocytes % 3.4 % (21.3-54.2); Mean Corpuscular HGB Conc 32.1 GM/DL (32-36); Mean Corpuscular Volume 102.8 FL (87-102); Mean Platelet Volume 11.1 FL (9.6-12.0); Monocytes % 2.8 % (1.7-12.7); NRBC # 0.02 10*3/uL; Neutrophils % 91.7 % (38.7-73.9); Platelet Count 131 T/CUMM (130-400); Red Blood Count 2.85 MC/CUMM (3.8-5.5); Red Cell Distribution Width 21.2 % (9.3-17.3); White Blood Count 11.9 T/CUMM (4-12)
[2020-09-12 06:27] LABS: Calcium 8.3 MG/DL (8.5-10.1); Osmolality,Calculated 286.4 MOS/KG (273-304)
[2020-09-12 06:33] LABS: Eosinophils 1 % (0-10); Lymphocytes 6 % (20-55); Segmented Neutrophils 90 % (50-85); Total Cells Counted 100
[2020-09-12 06:34] LABS: Hypochromasia 1+; Microcytosis 1+; Platelet Estimate Adequate
[2020-09-12] MEDS: FUROSEMIDE 40 MG/5 ML UDCUP PO SCH ×2 (10:03→15:21)
[2020-09-12] MEDS: LACTULOSE 20 GM/30 ML UDCUP PO SCH (10:03)
[2020-09-12] MEDS: CHOLECALCIFEROL 1,000 UNIT TABLET PO SCH (10:04)
[2020-09-12] MEDS: POTASSIUM PHOS/SOD PHOS POWDER 250 MG PACK PO SCH ×2 (10:04→21:00)
[2020-09-12] MEDS: CYANOCOBALAMIN 500 MCG TABLET PO SCH (10:04)
[2020-09-12] MEDS: MENTHOL/ZINC OXIDE OINT 71 GM JAR TOP SCH ×2 (10:05→21:00)
[2020-09-12] MEDS: COENZYME Q10 100 MG CAPSULE PO SCH (10:05)
[2020-09-12] MEDS: VITAMIN E 400 UNIT CAPSULE PO SCH ×2 (10:05→21:00)
[2020-09-12] MEDS: PROCHLORPERAZINE 5 MG TABLET PO SCH ×3 (10:05→21:00)
[2020-09-12] MEDS: Fluticasone-Umeclidin-Vilanter [Trelegy Ellipta] 100-62.5-25 mcg INH SCH (10:05)
[2020-09-12] MEDS: HYDROCORTISONE 25 MG SUPP RECTAL SCH ×3 (10:05→21:00)
[2020-09-12] MEDS: MULTIVITAMIN (CENTRUM) TABLET PO SCH (10:05)
[2020-09-12] MEDS: ASPIRIN CHEW 81 MG TABLET PO SCH (10:05)
[2020-09-12] MEDS: POTASSIUM CHLORIDE 20 MEQ TABLET PO SCH (10:05)
[2020-09-12] MEDS: methylPREDNISolone SOD SUC 40 MG/1 ML VIAL IV SCH ×2 (10:14→21:00)
[2020-09-12] MEDS: PANTOPRAZOLE 40 MG TABLET PO SCH (10:15)
[2020-09-12] MEDS: NYSTATIN CREAM 15 GM TUBE TOP SCH ×3 (10:15→21:00)
[2020-09-12] MEDS: MORPHINE 2 MG/1 ML SYRINGE IV PRN ×2 (14:02→21:02)
[2020-09-12] MEDS: diphenhydrAMINE CAP 25 MG CAPSULE PO PRN (21:00)
[2020-09-12] MEDS: traZODone 50 MG TABLET PO SCH (21:00)
[2020-09-13] MEDS: SODIUM CHLORIDE 0.9% 1,000 ML IV SCH ×2 (00:35→15:09)
[2020-09-13] MEDS: FUROSEMIDE 40 MG/5 ML UDCUP PO SCH ×2 (09:44→15:10)
[2020-09-13] MEDS: LACTULOSE 20 GM/30 ML UDCUP PO SCH (09:44)
[2020-09-13] MEDS: ASPIRIN CHEW 81 MG TABLET PO SCH (09:45)
[2020-09-13] MEDS: PANTOPRAZOLE 40 MG TABLET PO SCH (09:45)
[2020-09-13] MEDS: POTASSIUM PHOS/SOD PHOS POWDER 250 MG PACK PO SCH ×2 (09:45→20:11)
[2020-09-13] MEDS: VITAMIN E 400 UNIT CAPSULE PO SCH ×2 (09:45→20:11)
[2020-09-13] MEDS: HYDROCORTISONE 25 MG SUPP RECTAL SCH ×2 (09:45→20:11)
[2020-09-13] MEDS: methylPREDNISolone SOD SUC 40 MG/1 ML VIAL IV SCH ×2 (09:45→20:17)
[2020-09-13] MEDS: CYANOCOBALAMIN 500 MCG TABLET PO SCH (09:45)
[2020-09-13] MEDS: COENZYME Q10 100 MG CAPSULE PO SCH (09:45)
[2020-09-13] MEDS: CHOLECALCIFEROL 1,000 UNIT TABLET PO SCH (09:45)
[2020-09-13] MEDS: MULTIVITAMIN (CENTRUM) TABLET PO SCH (09:46)
[2020-09-13] MEDS: MENTHOL/ZINC OXIDE OINT 71 GM JAR TOP SCH ×2 (09:46→20:11)
[2020-09-13] MEDS: POTASSIUM CHLORIDE 20 MEQ TABLET PO SCH (09:46)
[2020-09-13] MEDS: Fluticasone-Umeclidin-Vilanter [Trelegy Ellipta] 100-62.5-25 mcg INH SCH (09:46)
[2020-09-13] MEDS: NYSTATIN CREAM 15 GM TUBE TOP SCH ×3 (09:46→20:14)
[2020-09-13] MEDS: PROCHLORPERAZINE 5 MG TABLET PO SCH ×3 (09:46→20:13)
[2020-09-13] MEDS: diphenhydrAMINE CAP 25 MG CAPSULE PO PRN (09:46)
[2020-09-13] MEDS: MORPHINE 2 MG/1 ML SYRINGE IV PRN ×3 (09:47→20:20)
[2020-09-13] MEDS: ALBUTEROL 2.5 MG/3 ML NEB RESP TX PRN (10:16)
[2020-09-13] MEDS: SODIUM CHLORIDE 0.9% 500 ML IV SCH (10:33)
[2020-09-13] MEDS: traZODone 50 MG TABLET PO SCH (20:10)
[2020-09-13] MEDS: hydrOXYzine HCL 25 MG TABLET PO PRN (20:10)
[2020-09-14] MEDS: diphenhydrAMINE CAP 25 MG CAPSULE PO PRN ×2 (01:36→22:18)
[2020-09-14] MEDS: hydrOXYzine HCL 25 MG TABLET PO PRN ×2 (06:21→12:55)
[2020-09-14] MEDS: NYSTATIN CREAM 15 GM TUBE TOP SCH ×3 (08:00→21:59)
[2020-09-14] MEDS: methylPREDNISolone SOD SUC 40 MG/1 ML VIAL IV SCH ×2 (08:00→22:00)
[2020-09-14] MEDS: Fluticasone-Umeclidin-Vilanter [Trelegy Ellipta] 100-62.5-25 mcg INH SCH (08:01)
[2020-09-14] MEDS: FUROSEMIDE 40 MG/5 ML UDCUP PO SCH ×2 (08:01→15:59)
[2020-09-14] MEDS: MENTHOL/ZINC OXIDE OINT 71 GM JAR TOP SCH ×2 (08:01→21:59)
[2020-09-14] MEDS: PANTOPRAZOLE 40 MG TABLET PO SCH (08:02)
[2020-09-14] MEDS: PROCHLORPERAZINE 5 MG TABLET PO SCH ×3 (08:02→21:59)
[2020-09-14] MEDS: CHOLECALCIFEROL 1,000 UNIT TABLET PO SCH (08:02)
[2020-09-14] MEDS: CYANOCOBALAMIN 500 MCG TABLET PO SCH (08:02)
[2020-09-14] MEDS: MULTIVITAMIN (CENTRUM) TABLET PO SCH (08:02)
[2020-09-14] MEDS: POTASSIUM CHLORIDE 20 MEQ TABLET PO SCH (08:02)
[2020-09-14] MEDS: COENZYME Q10 100 MG CAPSULE PO SCH (08:02)
[2020-09-14] MEDS: POTASSIUM PHOS/SOD PHOS POWDER 250 MG PACK PO SCH ×3 (08:02→22:02)
[2020-09-14] MEDS: HYDROCORTISONE 25 MG SUPP RECTAL SCH ×2 (08:03→21:58)
[2020-09-14] MEDS: LACTULOSE 20 GM/30 ML UDCUP PO SCH (08:03)
[2020-09-14] MEDS: VITAMIN E 400 UNIT CAPSULE PO SCH ×2 (08:03→21:58)
[2020-09-14] MEDS: ASPIRIN CHEW 81 MG TABLET PO SCH (08:03)
[2020-09-14] MEDS: SODIUM CHLORIDE 0.9% 500 ML IV SCH (08:03)
[2020-09-14] MEDS: SODIUM CHLORIDE 0.9% 1,000 ML IV SCH (09:05)
[2020-09-14] MEDS: ALBUTEROL 2.5 MG/3 ML NEB RESP TX PRN ×2 (09:53→17:00)
[2020-09-14] MEDS: MORPHINE 2 MG/1 ML SYRINGE IV PRN ×3 (12:55→22:18)
[2020-09-14] MEDS: traZODone 50 MG TABLET PO SCH (21:59)
[2020-09-15] MEDS: MORPHINE 2 MG/1 ML SYRINGE IV PRN ×5 (02:06→22:33)
[2020-09-15] MEDS: SODIUM CHLORIDE 0.9% 1,000 ML IV SCH ×2 (06:48→23:49)
[2020-09-15] MEDS: ALBUTEROL 2.5 MG/3 ML NEB RESP TX PRN (07:54)
[2020-09-15] MEDS: FUROSEMIDE 40 MG/5 ML UDCUP PO SCH (08:06)
[2020-09-15] MEDS: CYANOCOBALAMIN 500 MCG TABLET PO SCH (08:07)
[2020-09-15] MEDS: LACTULOSE 20 GM/30 ML UDCUP PO SCH (08:07)
[2020-09-15] MEDS: COENZYME Q10 100 MG CAPSULE PO SCH (08:07)
[2020-09-15] MEDS: VITAMIN E 400 UNIT CAPSULE PO SCH ×2 (08:07→21:37)
[2020-09-15] MEDS: POTASSIUM CHLORIDE 20 MEQ TABLET PO SCH (08:07)
[2020-09-15] MEDS: methylPREDNISolone SOD SUC 40 MG/1 ML VIAL IV SCH ×2 (08:07→21:41)
[2020-09-15] MEDS: MULTIVITAMIN (CENTRUM) TABLET PO SCH (08:08)
[2020-09-15] MEDS: MENTHOL/ZINC OXIDE OINT 71 GM JAR TOP SCH ×2 (08:08→21:40)
[2020-09-15] MEDS: ASPIRIN CHEW 81 MG TABLET PO SCH (08:08)
[2020-09-15] MEDS: POTASSIUM PHOS/SOD PHOS POWDER 250 MG PACK PO SCH ×2 (08:08→21:40)
[2020-09-15] MEDS: PANTOPRAZOLE 40 MG TABLET PO SCH (08:08)
[2020-09-15] MEDS: CHOLECALCIFEROL 1,000 UNIT TABLET PO SCH (08:08)
[2020-09-15] MEDS: PROCHLORPERAZINE 5 MG TABLET PO SCH ×3 (08:08→21:37)
[2020-09-15] MEDS: Fluticasone-Umeclidin-Vilanter [Trelegy Ellipta] 100-62.5-25 mcg INH SCH (08:08)
[2020-09-15] MEDS: NYSTATIN CREAM 15 GM TUBE TOP SCH ×3 (08:09→21:38)
[2020-09-15] MEDS: HYDROCORTISONE 25 MG SUPP RECTAL SCH ×2 (08:09→21:39)
[2020-09-15] MEDS: SODIUM CHLORIDE 0.9% 500 ML IV SCH (08:09)
[2020-09-15] MEDS: hydrOXYzine HCL 25 MG TABLET PO PRN ×2 (13:43→21:39)
[2020-09-15] MEDS: FUROSEMIDE 40 MG TABLET PO SCH (15:56)
[2020-09-15] MEDS: diphenhydrAMINE CAP 25 MG CAPSULE PO PRN (18:31)
[2020-09-15] MEDS: traZODone 50 MG TABLET PO SCH (21:37)
[2020-09-15] MEDS: ROSUVASTATIN 20 MG TABLET PO SCH (21:37)
[2020-09-16] MEDS: diphenhydrAMINE CAP 25 MG CAPSULE PO PRN (03:50)
[2020-09-16] MEDS: MORPHINE 2 MG/1 ML SYRINGE IV PRN ×2 (03:51→09:11)
[2020-09-16 07:02] LABS: Albumin 2.3 G/DL (3.4-5.0); Bilirubin,Total 9.9 MG/DL (0.20-1.00); Calcium 8.4 MG/DL (8.5-10.1); Osmolality,Calculated 290.8 MOS/KG (273-304); Potassium 3.3 MMOL/L (3.5-5.1)
[2020-09-16] MEDS: MAGNESIUM SULF RIDER 2 GM/50 ML PREMIX IV PRN (08:05)
[2020-09-16] MEDS: POTASSIUM CHLORIDE 20 MEQ TABLET PO SCH (08:07)
[2020-09-16] MEDS: methylPREDNISolone SOD SUC 40 MG/1 ML VIAL IV SCH (08:07)
[2020-09-16] MEDS: CHOLECALCIFEROL 1,000 UNIT TABLET PO SCH (08:07)
[2020-09-16] MEDS: FUROSEMIDE 40 MG TABLET PO SCH ×2 (08:07→15:55)
[2020-09-16] MEDS: LACTULOSE 20 GM/30 ML UDCUP PO SCH (08:07)
[2020-09-16] MEDS: PANTOPRAZOLE 40 MG TABLET PO SCH (08:07)
[2020-09-16] MEDS: COENZYME Q10 100 MG CAPSULE PO SCH (08:07)
[2020-09-16] MEDS: POTASSIUM PHOS/SOD PHOS POWDER 250 MG PACK PO SCH ×2 (08:08→22:21)
[2020-09-16] MEDS: PROCHLORPERAZINE 5 MG TABLET PO SCH ×3 (08:08→21:58)
[2020-09-16] MEDS: ASPIRIN CHEW 81 MG TABLET PO SCH (08:08)
[2020-09-16] MEDS: VITAMIN E 400 UNIT CAPSULE PO SCH ×2 (08:08→21:58)
[2020-09-16] MEDS: HYDROCORTISONE 25 MG SUPP RECTAL SCH ×2 (08:08→21:59)
[2020-09-16] MEDS: CYANOCOBALAMIN 500 MCG TABLET PO SCH (08:08)
[2020-09-16] MEDS: MULTIVITAMIN (CENTRUM) TABLET PO SCH (08:08)
[2020-09-16] MEDS: SODIUM CHLORIDE 0.9% 500 ML IV SCH (08:09)
[2020-09-16] MEDS: Fluticasone-Umeclidin-Vilanter [Trelegy Ellipta] 100-62.5-25 mcg INH SCH (08:18)
[2020-09-16] MEDS: NYSTATIN CREAM 15 GM TUBE TOP SCH ×3 (08:18→21:59)
[2020-09-16] MEDS: SODIUM CHLORIDE 0.9% 1,000 ML IV SCH ×2 (09:10→22:21)
[2020-09-16] MEDS: hydrOXYzine HCL 25 MG TABLET PO PRN ×2 (09:11→21:58)
[2020-09-16] MEDS: MENTHOL/ZINC OXIDE OINT 71 GM JAR TOP SCH ×2 (09:11→21:59)
[2020-09-16] MEDS: ALBUTEROL 2.5 MG/3 ML NEB RESP TX PRN (11:45)
[2020-09-16] MEDS: POTASSIUM CHLORIDE 20 MEQ TABLET PO PRN ×3 (12:10→15:55)
[2020-09-16] MEDS ORDERED: MAGNESIUM SULF RIDER 2 GM/50 ML PREMIX IV PRN (12:55)
[2020-09-16] MEDS ORDERED: MAGNESIUM SULF RIDER 4 GM/100 ML PREMIX IV PRN (12:55)
[2020-09-16] MEDS: ALBUTEROL 2.5 MG/3 ML NEB RESP TX SCH (19:08)
[2020-09-16] MEDS: ROSUVASTATIN 20 MG TABLET PO SCH (21:58)
[2020-09-16] MEDS: traZODone 50 MG TABLET PO SCH (21:58)
[2020-09-17] MEDS: ALBUTEROL 2.5 MG/3 ML NEB RESP TX SCH ×4 (00:53→19:45)
[2020-09-17] MEDS ORDERED: MORPHINE 2 MG/1 ML SYRINGE IM PRN (01:43)
[2020-09-17] MEDS: POTASSIUM CHLORIDE 20 MEQ TABLET PO PRN ×2 (03:33→05:21)
[2020-09-17] MEDS: POTASSIUM PHOS/SOD PHOS POWDER 250 MG PACK PO SCH ×2 (09:00→21:53)
[2020-09-17] MEDS: SODIUM CHLORIDE 0.9% 500 ML IV SCH (09:00)
[2020-09-17] MEDS: HYDROCORTISONE 25 MG SUPP RECTAL SCH ×2 (09:00→21:53)
[2020-09-17] MEDS: PANTOPRAZOLE 40 MG TABLET PO SCH (09:46)
[2020-09-17] MEDS: FUROSEMIDE 40 MG TABLET PO SCH ×2 (09:47→16:36)
[2020-09-17] MEDS: ASPIRIN CHEW 81 MG TABLET PO SCH (09:47)
[2020-09-17] MEDS: LACTULOSE 20 GM/30 ML UDCUP PO SCH (09:48)
[2020-09-17] MEDS: Fluticasone-Umeclidin-Vilanter [Trelegy Ellipta] 100-62.5-25 mcg INH SCH (09:48)
[2020-09-17] MEDS: COENZYME Q10 100 MG CAPSULE PO SCH (09:48)
[2020-09-17] MEDS: MULTIVITAMIN (CENTRUM) TABLET PO SCH (09:48)
[2020-09-17] MEDS: NYSTATIN CREAM 15 GM TUBE TOP SCH ×3 (09:48→21:53)
[2020-09-17] MEDS: POTASSIUM CHLORIDE 20 MEQ TABLET PO SCH (09:48)
[2020-09-17] MEDS: MENTHOL/ZINC OXIDE OINT 71 GM JAR TOP SCH ×2 (09:48→21:53)
[2020-09-17] MEDS: PROCHLORPERAZINE 5 MG TABLET PO SCH ×3 (09:48→20:20)
[2020-09-17] MEDS: CYANOCOBALAMIN 500 MCG TABLET PO SCH (09:49)
[2020-09-17] MEDS: VITAMIN E 400 UNIT CAPSULE PO SCH ×2 (09:50→20:20)
[2020-09-17] MEDS: CHOLECALCIFEROL 1,000 UNIT TABLET PO SCH (09:50)
[2020-09-17] MEDS: MORPHINE 2 MG/1 ML SYRINGE IV PRN ×2 (12:53→20:45)
[2020-09-17] MEDS: methylPREDNISolone SOD SUC 40 MG/1 ML VIAL IV SCH (12:57)
[2020-09-17] MEDS: SODIUM CHLORIDE 0.9% 1,000 ML IV SCH (14:33)
[2020-09-17] MEDS: ROSUVASTATIN 20 MG TABLET PO SCH (20:20)
[2020-09-17] MEDS: traZODone 50 MG TABLET PO SCH (20:20)
[2020-09-18] MEDS: ALBUTEROL 2.5 MG/3 ML NEB RESP TX SCH ×4 (00:36→19:34)
[2020-09-18] MEDS: MORPHINE 2 MG/1 ML SYRINGE IV PRN ×2 (00:50→21:00)
[2020-09-18] MEDS: NYSTATIN CREAM 15 GM TUBE TOP SCH ×3 (09:00→20:00)
[2020-09-18] MEDS: MENTHOL/ZINC OXIDE OINT 71 GM JAR TOP SCH ×2 (09:00→20:00)
[2020-09-18] MEDS: ASPIRIN CHEW 81 MG TABLET PO SCH (09:59)
[2020-09-18] MEDS: MULTIVITAMIN (CENTRUM) TABLET PO SCH (09:59)
[2020-09-18] MEDS: FUROSEMIDE 40 MG TABLET PO SCH ×2 (09:59→15:43)
[2020-09-18] MEDS: PROCHLORPERAZINE 5 MG TABLET PO SCH ×3 (10:00→20:00)
[2020-09-18] MEDS: COENZYME Q10 100 MG CAPSULE PO SCH (10:00)
[2020-09-18] MEDS: Fluticasone-Umeclidin-Vilanter [Trelegy Ellipta] 100-62.5-25 mcg INH SCH (10:00)
[2020-09-18] MEDS: POTASSIUM PHOS/SOD PHOS POWDER 250 MG PACK PO SCH ×2 (10:01→20:02)
[2020-09-18] MEDS: PANTOPRAZOLE 40 MG TABLET PO SCH (10:02)
[2020-09-18] MEDS: CYANOCOBALAMIN 500 MCG TABLET PO SCH (10:02)
[2020-09-18] MEDS: CHOLECALCIFEROL 1,000 UNIT TABLET PO SCH (10:03)
[2020-09-18] MEDS: VITAMIN E 400 UNIT CAPSULE PO SCH ×2 (10:03→20:00)
[2020-09-18] MEDS: methylPREDNISolone SOD SUC 40 MG/1 ML VIAL IV SCH (10:06)
[2020-09-18] MEDS: LACTULOSE 20 GM/30 ML UDCUP PO SCH (10:30)
[2020-09-18] MEDS: HYDROCORTISONE 25 MG SUPP RECTAL SCH ×2 (10:30→20:01)
[2020-09-18] MEDS: POTASSIUM CHLORIDE 20 MEQ TABLET PO SCH (10:31)
[2020-09-18] MEDS: SODIUM CHLORIDE 0.9% 500 ML IV SCH (10:31)
[2020-09-18] MEDS: SODIUM CHLORIDE 0.9% 1,000 ML IV SCH (12:35)
[2020-09-18 12:50] LABS: Potassium 3.4 MMOL/L (3.5-5.1)
[2020-09-18] MEDS: hydrOXYzine HCL 25 MG TABLET PO PRN (20:00)
[2020-09-18] MEDS: ROSUVASTATIN 20 MG TABLET PO SCH (20:00)
[2020-09-18] MEDS: traZODone 50 MG TABLET PO SCH (20:00)
[2020-09-19] MEDS: ALBUTEROL 2.5 MG/3 ML NEB RESP TX SCH ×4 (00:53→20:55)
[2020-09-19] MEDS: methylPREDNISolone SOD SUC 40 MG/1 ML VIAL IV SCH (09:31)
[2020-09-19] MEDS: MORPHINE 2 MG/1 ML SYRINGE IV PRN ×3 (09:31→21:42)
[2020-09-19] MEDS: VITAMIN E 400 UNIT CAPSULE PO SCH ×2 (10:03→21:40)
[2020-09-19] MEDS: COENZYME Q10 100 MG CAPSULE PO SCH (10:03)
[2020-09-19] MEDS: CHOLECALCIFEROL 1,000 UNIT TABLET PO SCH (10:03)
[2020-09-19] MEDS: MULTIVITAMIN (CENTRUM) TABLET PO SCH (10:03)
[2020-09-19] MEDS: PANTOPRAZOLE 40 MG TABLET PO SCH (10:04)
[2020-09-19] MEDS: ASPIRIN CHEW 81 MG TABLET PO SCH (10:04)
[2020-09-19] MEDS: POTASSIUM PHOS/SOD PHOS POWDER 250 MG PACK PO SCH ×3 (10:04→21:43)
[2020-09-19] MEDS: PROCHLORPERAZINE 5 MG TABLET PO SCH ×3 (10:04→21:40)
[2020-09-19] MEDS: CYANOCOBALAMIN 500 MCG TABLET PO SCH (10:04)
[2020-09-19] MEDS: FUROSEMIDE 40 MG TABLET PO SCH ×2 (10:04→16:49)
[2020-09-19] MEDS: POTASSIUM CHLORIDE 20 MEQ TABLET PO SCH (10:04)
[2020-09-19] MEDS: NYSTATIN CREAM 15 GM TUBE TOP SCH ×3 (10:09→21:42)
[2020-09-19] MEDS: Fluticasone-Umeclidin-Vilanter [Trelegy Ellipta] 100-62.5-25 mcg INH SCH (10:10)
[2020-09-19] MEDS: MENTHOL/ZINC OXIDE OINT 71 GM JAR TOP SCH ×2 (10:10→21:42)
[2020-09-19] MEDS: SODIUM CHLORIDE 0.9% 1,000 ML IV SCH (10:17)
[2020-09-19] MEDS: LACTULOSE 20 GM/30 ML UDCUP PO SCH (10:18)
[2020-09-19] MEDS: HYDROCORTISONE 25 MG SUPP RECTAL SCH ×2 (10:18→21:42)
[2020-09-19] MEDS: diphenhydrAMINE CAP 25 MG CAPSULE PO PRN ×2 (11:18→21:41)
[2020-09-19] MEDS: traZODone 50 MG TABLET PO SCH (21:46)
[2020-09-20] MEDS: ALBUTEROL 2.5 MG/3 ML NEB RESP TX SCH ×4 (00:17→20:33)
[2020-09-20] MEDS: ROSUVASTATIN 20 MG TABLET PO SCH ×2 (00:26→21:17)
[2020-09-20] MEDS: hydrOXYzine HCL 25 MG TABLET PO PRN ×2 (01:05→16:10)
[2020-09-20] MEDS: SODIUM CHLORIDE 0.9% 1,000 ML IV SCH (05:21)
[2020-09-20] MEDS: MORPHINE 2 MG/1 ML SYRINGE IV PRN (05:21)
[2020-09-20] MEDS: FUROSEMIDE 40 MG TABLET PO SCH ×2 (09:00→16:29)
[2020-09-20] MEDS: COENZYME Q10 100 MG CAPSULE PO SCH (09:00)
[2020-09-20] MEDS: MULTIVITAMIN (CENTRUM) TABLET PO SCH (09:00)
[2020-09-20] MEDS: POTASSIUM CHLORIDE 20 MEQ TABLET PO SCH (09:00)
[2020-09-20] MEDS: VITAMIN E 400 UNIT CAPSULE PO SCH ×2 (09:00→21:17)
[2020-09-20] MEDS: CYANOCOBALAMIN 500 MCG TABLET PO SCH (09:00)
[2020-09-20] MEDS: CHOLECALCIFEROL 1,000 UNIT TABLET PO SCH (09:00)
[2020-09-20] MEDS: PANTOPRAZOLE 40 MG TABLET PO SCH (09:00)
[2020-09-20] MEDS: Fluticasone-Umeclidin-Vilanter [Trelegy Ellipta] 100-62.5-25 mcg INH SCH (09:00)
[2020-09-20] MEDS: ASPIRIN CHEW 81 MG TABLET PO SCH (09:00)
[2020-09-20] MEDS: NYSTATIN CREAM 15 GM TUBE TOP SCH ×3 (09:01→21:16)
[2020-09-20] MEDS: MENTHOL/ZINC OXIDE OINT 71 GM JAR TOP SCH ×2 (09:01→21:16)
[2020-09-20] MEDS: POTASSIUM PHOS/SOD PHOS POWDER 250 MG PACK PO SCH ×2 (10:04→22:08)
[2020-09-20] MEDS: LACTULOSE 20 GM/30 ML UDCUP PO SCH (10:04)
[2020-09-20] MEDS: HYDROCORTISONE 25 MG SUPP RECTAL SCH ×2 (10:04→21:16)
[2020-09-20 11:16] LABS: Basophils % 0.4 % (0.0-0.8); Eosinophils # 0.1 10*3/uL (0.0-0.87); Eosinophils % 1.5 % (0.00-10.9); Hematocrit 29.5 VOL% (35.7-47.0); Hemoglobin 9.3 GM/DL (12.0-16.0); Immature Granulocytes % 0.5 %; Immature Granulocytes Absolute 0.04 #; Lymphocytes # 0.6 10*3/uL (1.4-4.0); Lymphocytes % 7.7 % (21.3-54.2); Mean Corpuscular HGB Conc 31.5 GM/DL (32-36); Mean Corpuscular Volume 106.1 FL (87-102); Mean Platelet Volume 10.7 FL (9.6-12.0); Monocytes % 5.8 % (1.7-12.7); Neutrophils % 84.1 % (38.7-73.9); Platelet Count 216 T/CUMM (130-400); Red Blood Count 2.78 MC/CUMM (3.8-5.5); Red Cell Distribution Width 18.6 % (9.3-17.3); White Blood Count 8.1 T/CUMM (4-12)
[2020-09-20 11:40] LABS: Albumin 2.3 G/DL (3.4-5.0); Bilirubin,Total 8.4 MG/DL (0.20-1.00); Calcium 8.5 MG/DL (8.5-10.1); Osmolality,Calculated 279.5 MOS/KG (273-304); Potassium 2.9 MMOL/L (3.5-5.1); Total Protein 5.4 G/DL (6.4-8.2)
[2020-09-20] MEDS: POTASSIUM CHLORIDE 20 MEQ TABLET PO PRN ×4 (11:54→18:23)
[2020-09-20] MEDS: traZODone 50 MG TABLET PO SCH (21:17)
[2020-09-20] MEDS: diphenhydrAMINE CAP 25 MG CAPSULE PO PRN (21:17)
[2020-09-21] MEDS: hydrOXYzine HCL 25 MG TABLET PO PRN ×2 (00:23→13:32)
[2020-09-21] MEDS: ONDANSETRON 4 MG/2 ML VIAL IV PRN (00:24)
[2020-09-21] MEDS: MORPHINE 2 MG/1 ML SYRINGE IV PRN ×3 (00:28→11:28)
[2020-09-21] MEDS: ALBUTEROL 2.5 MG/3 ML NEB RESP TX SCH ×3 (01:53→14:57)
[2020-09-21] MEDS: FUROSEMIDE 40 MG TABLET PO SCH (08:28)
[2020-09-21] MEDS: PANTOPRAZOLE 40 MG TABLET PO SCH (08:29)
[2020-09-21] MEDS: ASPIRIN CHEW 81 MG TABLET PO SCH (08:29)
[2020-09-21] MEDS: CYANOCOBALAMIN 500 MCG TABLET PO SCH (08:29)
[2020-09-21] MEDS: CHOLECALCIFEROL 1,000 UNIT TABLET PO SCH (08:29)
[2020-09-21] MEDS: VITAMIN E 400 UNIT CAPSULE PO SCH (08:30)
[2020-09-21] MEDS: MULTIVITAMIN (CENTRUM) TABLET PO SCH (08:30)
[2020-09-21] MEDS: POTASSIUM CHLORIDE 20 MEQ TABLET PO SCH (08:31)
[2020-09-21] MEDS: MENTHOL/ZINC OXIDE OINT 71 GM JAR TOP SCH (08:39)
[2020-09-21] MEDS: Fluticasone-Umeclidin-Vilanter [Trelegy Ellipta] 100-62.5-25 mcg INH SCH (08:40)
[2020-09-21] MEDS: NYSTATIN CREAM 15 GM TUBE TOP SCH (08:44)
[2020-09-21] MEDS: HYDROCORTISONE 25 MG SUPP RECTAL SCH (08:45)
[2020-09-21] MEDS: POTASSIUM PHOS/SOD PHOS POWDER 250 MG PACK PO SCH (08:45)
[2020-09-21] MEDS: LACTULOSE 20 GM/30 ML UDCUP PO SCH (08:45)
[2020-09-21] MEDS: COENZYME Q10 100 MG CAPSULE PO SCH (10:40)
[2020-09-21] MEDS: POTASSIUM CHLORIDE 20 MEQ TABLET PO PRN (11:21)
[2020-09-21] MEDS: diphenhydrAMINE CAP 25 MG CAPSULE PO PRN (11:25)
[2020-09-21 11:48] VITALS: BP 88/47
== END 2020-09-21 16:05 | disposition swing bed (61) | DRG 441 ==
LOC: N.ED 11:21 → SUATTDRO 13:17 → N.EDINP 13:17 → N.ICU 15:28 → N.TELEN 09-01 12:46 → N.CC 09-01 22:16 → N.3E 09-04 15:32
PROVIDERS: ADMIT Family Medicine; ATTEND Internal Medicine

== ENCOUNTER 2020-10-13 15:36 | Observation (INO) ==
[2020-10-13 17:01] LABS: Basophils # 0.1 10*3/uL (0.0-0.2); Basophils % 0.8 % (0.0-0.8); Eosinophils # 0.1 10*3/uL (0.0-0.87); Eosinophils % 0.4 % (0.00-10.9); Hematocrit 34.7 VOL% (35.7-47.0); Hemoglobin 10.8 GM/DL (12.0-16.0); Immature Granulocytes % 0.7 %; Immature Granulocytes Absolute 0.08 #; Lymphocytes # 1.6 10*3/uL (1.4-4.0); Lymphocytes % 14.6 % (21.3-54.2); Mean Corpuscular HGB Conc 31.1 GM/DL (32-36); Mean Corpuscular Volume 99.7 FL (87-102); Mean Platelet Volume 9.9 FL (9.6-12.0); Monocytes % 11.6 % (1.7-12.7); Neutrophils % 71.9 % (38.7-73.9); Platelet Count 431 T/CUMM (130-400); Red Blood Count 3.48 MC/CUMM (3.8-5.5); Red Cell Distribution Width 14.6 % (9.3-17.3); White Blood Count 11.3 T/CUMM (4-12)
[2020-10-13 17:11] LABS: INR 1.2; PT Patient Result 13.7 SECS (10.5-12.0)
[2020-10-13 17:21] LABS: Albumin 2.7 G/DL (3.4-5.0); Bilirubin,Total 5.6 MG/DL (0.20-1.00); Calcium 8.8 MG/DL (8.5-10.1); Potassium 4.4 MMOL/L (3.5-5.1); Total Protein 5.7 G/DL (6.4-8.2)
[2020-10-13 18:21] LABS: Bacteria,Urine Many /HPF (Few); Bilirubin,Urine Negative (Negative); Blood, Urine Small mg/dL (Negative); Glucose,Urine (UA) Negative (Negative); Hyaline Casts,Urine 91 /LPF (0-3); Ketones,Urine Negative (Negative); Mucus,Urine Occasional /LPF (Occasional); Nitrite,Urine Negative (Negative); Protein,Urine Negative; RBC,Urine 4 /HPF (0-4); Squamous Epithelial Cell,Urine Occasional /HPF (0-10); Urine Appearance Slightly Hazy (Clear); Urine Color Yellow (Yellow); Urine Specific Gravity 1.009 (1.001-1.035); Urine Urobilinogen < 2.0 EU/DL (0.2-1.0)
[2020-10-13] MEDS ORDERED: NITROFURANTOIN MACRO/MONO 100 MG CAPSULE PO ONE (19:07)
[2020-10-13] MEDS ORDERED: DOCUSATE SODIUM 100 MG CAPSULE PO PRN (21:56)
[2020-10-13] MEDS ORDERED: guaiFENesin/DM ER 600-30 MG TABLET PO PRN (21:56)
[2020-10-13] MEDS ORDERED: NICOTINE 21 MG/24 HR PATCH TRANSDERM PRN (21:56)
[2020-10-13] MEDS ORDERED: ONDANSETRON 4 MG/2 ML VIAL IV PRN (21:56)
[2020-10-13] MEDS ORDERED: DEXTROSE 50% 25 GM/50 ML VIAL IV PRN (21:56)
[2020-10-13] MEDS ORDERED: GLUCAGON 1 MG VIAL IM PRN (21:56)
[2020-10-13] MEDS ORDERED: LEVOFLOXACIN INJ 750 MG/150 ML PREMIX IV SCH (22:00)
[2020-10-14] MEDS: SODIUM CHLORIDE 0.9% 1,000 ML IV SCH ×2 (00:30→21:41)
[2020-10-14] MEDS: HEPARIN 5,000 UNIT/1 ML VIAL SUBCUT SCH ×3 (00:33→22:21)
[2020-10-14] MEDS: ZINC OXIDE PASTE 113 GM TUBE TOP SCH ×3 (02:30→21:41)
[2020-10-14] MEDS: traMADol 50 MG TABLET PO PRN ×2 (02:30→14:53)
[2020-10-14 06:51] LABS: Basophils # 0.1 10*3/uL (0.0-0.2); Basophils % 0.8 % (0.0-0.8); Eosinophils # 0.1 10*3/uL (0.0-0.87); Eosinophils % 1.3 % (0.00-10.9); Hemoglobin 9.6 GM/DL (12.0-16.0); Immature Granulocytes % 0.6 %; Immature Granulocytes Absolute 0.04 #; Lymphocytes % 14.3 % (21.3-54.2); Mean Corpuscular Volume 97.7 FL (87-102); Platelet Count 260 T/CUMM (130-400); Red Blood Count 3.07 MC/CUMM (3.8-5.5); Red Cell Distribution Width 14.5 % (9.3-17.3); White Blood Count 7.2 T/CUMM (4-12)
[2020-10-14 07:03] LABS: Albumin 1.9 G/DL (3.4-5.0); Bilirubin,Total 4.2 MG/DL (0.20-1.00); Calcium 7.6 MG/DL (8.5-10.1); Osmolality,Calculated 282.5 MOS/KG (273-304); Potassium 3.8 MMOL/L (3.5-5.1); Total Protein 4.5 G/DL (6.4-8.2)
[2020-10-14] MEDS: PANTOPRAZOLE 40 MG TABLET PO SCH (09:17)
[2020-10-14] MEDS ORDERED: ALBUMIN 5% 25 GM/500 ML VIAL IV ONE (12:37)
[2020-10-14] MEDS ORDERED: SODIUM CHLORIDE 0.9% 250 ML IV ONE (12:38)
[2020-10-14] MEDS: ZALEPLON 5 MG CAPSULE PO PRN (21:29)
[2020-10-14] MEDS: diphenhydrAMINE CAP 25 MG CAPSULE PO PRN (21:30)
[2020-10-14] MEDS: BUDESONIDE/FORMOTEROL 80-4.5 INHALER 6.9 GM INH SCH (21:40)
[2020-10-15] MEDS: traMADol 50 MG TABLET PO PRN (02:34)
[2020-10-15] MEDS: diphenhydrAMINE CAP 25 MG CAPSULE PO PRN ×3 (03:53→15:09)
[2020-10-15] MEDS: BUDESONIDE/FORMOTEROL 80-4.5 INHALER 6.9 GM INH SCH ×3 (08:53→21:52)
[2020-10-15] MEDS: ASPIRIN EC 81 MG TABLET PO SCH (08:53)
[2020-10-15] MEDS: PANTOPRAZOLE 40 MG TABLET PO SCH (08:53)
[2020-10-15] MEDS ORDERED: PRASUGREL 10 MG TABLET PO SCH (09:00)
[2020-10-15] MEDS: ZINC OXIDE PASTE 113 GM TUBE TOP SCH ×2 (09:40→21:34)
[2020-10-15] MEDS: HEPARIN 5,000 UNIT/1 ML VIAL SUBCUT SCH ×2 (10:07→21:52)
[2020-10-15] MEDS ORDERED: FLUCONAZOLE 100 MG TABLET PO SCH (13:00)
[2020-10-15] MEDS: FLUCONAZOLE 100 MG TABLET PO SCH (13:26)
[2020-10-15] MEDS: SODIUM CHLORIDE 0.9% 1,000 ML IV SCH (14:02)
[2020-10-15] MEDS: DESITIN 4OZ/NYSTATIN 15 GRAM MIXTURE PASTE TOP SCH ×2 (17:39→21:34)
[2020-10-15] MEDS: ALBUTEROL/IPRATROPIUM 3 ML NEB RESP TX PRN (17:45)
[2020-10-15] MEDS: ZALEPLON 5 MG CAPSULE PO PRN (21:30)
[2020-10-15] MEDS: LEVOFLOXACIN 750 MG TABLET PO SCH (21:30)
[2020-10-15] MEDS ORDERED: LEVOFLOXACIN INJ 750 MG/150 ML PREMIX IV SCH (23:00)
[2020-10-16] MEDS ORDERED: NITROGLYCERIN SL 0.4 MG TABLET SL PRN ×2 (04:39→16:00)
[2020-10-16] MEDS: ALBUTEROL/IPRATROPIUM 3 ML NEB RESP TX PRN (07:00)
[2020-10-16] MEDS: DESITIN 4OZ/NYSTATIN 15 GRAM MIXTURE PASTE TOP SCH (08:45)
[2020-10-16] MEDS: ZINC OXIDE PASTE 113 GM TUBE TOP SCH (08:45)
[2020-10-16] MEDS ORDERED: LANSOPRAZOLE ODT 30 MG TABLET PO SCH (09:00)
[2020-10-16] MEDS ORDERED: NEBIVOLOL 10 MG TABLET PO SCH (09:00)
[2020-10-16] MEDS ORDERED: FUROSEMIDE 20 MG TABLET PO SCH (09:00)
[2020-10-16] MEDS ORDERED: ISOSORBIDE MONONITRATE 30 MG TABLET PO SCH ×2 (09:00→16:30)
[2020-10-16] MEDS ORDERED: METOPROLOL SUCCINATE XL 25 MG TABLET PO SCH (09:00)
[2020-10-16] MEDS: HEPARIN 5,000 UNIT/1 ML VIAL SUBCUT SCH (10:57)
[2020-10-16] MEDS: ASPIRIN EC 81 MG TABLET PO SCH (11:05)
[2020-10-16] MEDS: diphenhydrAMINE CAP 25 MG CAPSULE PO PRN ×2 (11:06→16:21)
[2020-10-16] MEDS: FLUCONAZOLE 100 MG TABLET PO SCH (11:06)
[2020-10-16] MEDS: SERTRALINE 25 MG TABLET PO SCH ×2 (11:10→11:32)
[2020-10-16] MEDS ORDERED: TUBERCULIN SKIN TEST 0.1 ML SYRINGE INTRADERM ONE (11:33)
[2020-10-16] MEDS ORDERED: PANTOPRAZOLE 40 MG TABLET PO SCH (12:21)
[2020-10-16 15:50] LABS: Basophils # 0.1 10*3/uL (0.0-0.2); Basophils % 0.9 % (0.0-0.8); Eosinophils # 0.1 10*3/uL (0.0-0.87); Eosinophils % 0.6 % (0.00-10.9); Hematocrit 36.8 VOL% (35.7-47.0); Hemoglobin 11.4 GM/DL (12.0-16.0); Lymphocytes % 11.5 % (21.3-54.2); Mean Corpuscular Volume 99.5 FL (87-102); Mean Platelet Volume 9.7 FL (9.6-12.0); Monocytes % 9.5 % (1.7-12.7); Neutrophils % 76.6 % (38.7-73.9); Platelet Count 299 T/CUMM (130-400); Red Cell Distribution Width 14.7 % (9.3-17.3); White Blood Count 8.8 T/CUMM (4-12)
[2020-10-16] MEDS: POTASSIUM CHLORIDE 20 MEQ TABLET PO SCH (15:54)
[2020-10-16 16:04] LABS: Calcium 7.8 MG/DL (8.5-10.1); Osmolality,Calculated 280.5 MOS/KG (273-304); Potassium 3.2 MMOL/L (3.5-5.1)
[2020-10-16] MEDS ORDERED: CYANOCOBALAMIN 500 MCG TABLET PO SCH (16:15)
[2020-10-16] MEDS ORDERED: CHOLECALCIFEROL 1,000 UNIT TABLET PO SCH (16:15)
[2020-10-16] MEDS ORDERED: COENZYME Q10 100 MG CAPSULE PO SCH (16:15)
[2020-10-16] MEDS ORDERED: PRASUGREL 10 MG TABLET PO SCH (16:30)
[2020-10-16] MEDS: LEVOFLOXACIN 750 MG TABLET PO SCH (20:07)
[2020-10-16] MEDS: SODIUM CHLORIDE 0.9% 1,000 ML IV SCH (20:07)
[2020-10-16] MEDS: BUDESONIDE/FORMOTEROL 80-4.5 INHALER 6.9 GM INH SCH (20:08)
[2020-10-16] MEDS: MELATONIN 3 MG TABLET PO PRN (20:53)
[2020-10-16] MEDS: MORPHINE 2 MG/1 ML SYRINGE IV PRN (20:55)
[2020-10-16] MEDS ORDERED: NEBIVOLOL 5 MG TABLET PO SCH (21:00)
[2020-10-16] MEDS ORDERED: ROSUVASTATIN 20 MG TABLET PO SCH (21:00)
[2020-10-16] MEDS ORDERED: POTASSIUM CHLORIDE 20 MEQ TABLET PO SCH (21:00)
[2020-10-17] MEDS ORDERED: POTASSIUM CHLORIDE 20 MEQ TABLET PO ONE (07:04)
[2020-10-17] MEDS ORDERED: MAGNESIUM SULF RIDER 4 GM/100 ML PREMIX IV ONE (07:04)
[2020-10-17] MEDS: MORPHINE 2 MG/1 ML SYRINGE IV PRN ×3 (07:44→21:10)
[2020-10-17] MEDS ORDERED: PANTOPRAZOLE 40 MG TABLET PO SCH (09:00)
[2020-10-17] MEDS ORDERED: ASPIRIN CHEW 81 MG TABLET PO SCH (09:00)
[2020-10-17] MEDS: NEBIVOLOL 5 MG TABLET PO SCH ×2 (09:22→20:57)
[2020-10-17] MEDS: PRASUGREL 10 MG TABLET PO SCH (09:22)
[2020-10-17] MEDS: ROSUVASTATIN 20 MG TABLET PO SCH (09:22)
[2020-10-17] MEDS: ISOSORBIDE MONONITRATE 30 MG TABLET PO SCH (09:23)
[2020-10-17] MEDS: ASPIRIN EC 81 MG TABLET PO SCH (09:23)
[2020-10-17] MEDS: POTASSIUM CHLORIDE 20 MEQ TABLET PO SCH (09:23)
[2020-10-17] MEDS: MAGNESIUM CHLORIDE 64 MG TABLET PO SCH ×2 (09:23→20:56)
[2020-10-17] MEDS: PANTOPRAZOLE 20 MG TABLET PO SCH (09:24)
[2020-10-17] MEDS ORDERED: LEVOFLOXACIN 750 MG TABLET PO SCH (21:00)
[2020-10-17] MEDS: MELATONIN 3 MG TABLET PO PRN (21:08)
[2020-10-18] MEDS: MORPHINE 2 MG/1 ML SYRINGE IV PRN ×5 (02:19→20:33)
[2020-10-18] MEDS: ISOSORBIDE MONONITRATE 30 MG TABLET PO SCH (08:36)
[2020-10-18] MEDS: MULTIVITAMIN (CENTRUM) TABLET PO SCH (08:37)
[2020-10-18] MEDS: POTASSIUM CHLORIDE 20 MEQ TABLET PO SCH (08:37)
[2020-10-18] MEDS: ASPIRIN EC 81 MG TABLET PO SCH (08:37)
[2020-10-18] MEDS: PANTOPRAZOLE 20 MG TABLET PO SCH (08:37)
[2020-10-18] MEDS: ROSUVASTATIN 20 MG TABLET PO SCH (08:37)
[2020-10-18] MEDS: MAGNESIUM CHLORIDE 64 MG TABLET PO SCH ×2 (08:37→20:33)
[2020-10-18] MEDS: PRASUGREL 10 MG TABLET PO SCH (08:44)
[2020-10-18] MEDS: NEBIVOLOL 5 MG TABLET PO SCH ×2 (09:52→20:33)
[2020-10-18 14:26] LABS: Osmolality,Calculated 275.8 MOS/KG (273-304); Potassium 5.9 MMOL/L (3.5-5.1)
[2020-10-18 15:12] LABS: Basophils # 0.1 10*3/uL (0.0-0.2); Eosinophils # 0.2 10*3/uL (0.0-0.87); Eosinophils % 1.4 % (0.00-10.9); Hematocrit 36.6 VOL% (35.7-47.0); Hemoglobin 10.9 GM/DL (12.0-16.0); Immature Granulocytes % 0.9 %; Immature Granulocytes Absolute 0.09 #; Lymphocytes % 9.7 % (21.3-54.2); Mean Corpuscular HGB Conc 29.8 GM/DL (32-36); Mean Corpuscular Volume 101.1 FL (87-102); Monocytes % 10.1 % (1.7-12.7); Neutrophils % 76.9 % (38.7-73.9); Platelet Count 282 T/CUMM (130-400); Red Blood Count 3.62 MC/CUMM (3.8-5.5); Red Cell Distribution Width 14.7 % (9.3-17.3); White Blood Count 10.4 T/CUMM (4-12)
[2020-10-18] MEDS: diphenhydrAMINE CAP 25 MG CAPSULE PO PRN (20:33)
[2020-10-19] MEDS: MORPHINE 2 MG/1 ML SYRINGE IV PRN ×2 (00:43→08:26)
[2020-10-19] MEDS ORDERED: INSULIN REGULAR 10 UNIT, CALCIUM GLUCONATE 1,000 MG in DEXTROSE 10% 250 ML IV ONE (07:32)
[2020-10-19] MEDS: ISOSORBIDE MONONITRATE 30 MG TABLET PO SCH (08:17)
[2020-10-19] MEDS: NEBIVOLOL 5 MG TABLET PO SCH ×2 (08:17→09:09)
[2020-10-19] MEDS: PRASUGREL 10 MG TABLET PO SCH (08:17)
[2020-10-19] MEDS: ASPIRIN EC 81 MG TABLET PO SCH (08:17)
[2020-10-19] MEDS: MAGNESIUM CHLORIDE 64 MG TABLET PO SCH (08:17)
[2020-10-19] MEDS: ROSUVASTATIN 20 MG TABLET PO SCH (08:17)
[2020-10-19] MEDS: MULTIVITAMIN (CENTRUM) TABLET PO SCH (08:18)
[2020-10-19] MEDS: PANTOPRAZOLE 20 MG TABLET PO SCH (08:18)
[2020-10-19] MEDS: diphenhydrAMINE CAP 25 MG CAPSULE PO PRN (11:15)
[2020-10-19 12:05] VITALS: BP 100/38
== END 2020-10-19 14:25 ==
LOC: EDBD → EDUNIT# → N.ED 15:36 → N.EDINP 15:36 → SUATTDRO 22:57 → N.EDINP 10-14 01:18 → N.OB 10-14 02:00 → N.TELES 10-16 17:28
PROVIDERS: ADMIT Internal Medicine; ATTEND Internal Medicine

== ENCOUNTER 2020-10-22 11:12 | Observation (INO) ==
[2020-10-22] MEDS ORDERED: SODIUM CHLORIDE 0.9% 500 ML IV STA (12:42)
[2020-10-22 14:11] LABS: Basophils # 0.1 10*3/uL (0.0-0.2); Basophils % 0.9 % (0.0-0.8); Eosinophils # 0.1 10*3/uL (0.0-0.87); Eosinophils % 0.5 % (0.00-10.9); Hematocrit 43.4 VOL% (35.7-47.0); Hemoglobin 13.7 GM/DL (12.0-16.0); Immature Granulocytes % 0.7 %; Lymphocytes # 1.4 10*3/uL (1.4-4.0); Lymphocytes % 10.1 % (21.3-54.2); Mean Corpuscular HGB Conc 31.6 GM/DL (32-36); Mean Corpuscular Volume 97.7 FL (87-102); Mean Platelet Volume 10.4 FL (9.6-12.0); Neutrophils % 79.8 % (38.7-73.9); Platelet Count 208 T/CUMM (130-400); Red Blood Count 4.44 MC/CUMM (3.8-5.5); Red Cell Distribution Width 14.9 % (9.3-17.3); White Blood Count 13.5 T/CUMM (4-12)
[2020-10-22] MEDS ORDERED: methylPREDNISolone SOD SUC 125 MG/2 ML VIAL IV PRN (14:18)
[2020-10-22] MEDS ORDERED: ONDANSETRON 4 MG/2 ML VIAL IV PRN (14:18)
[2020-10-22] MEDS ORDERED: diphenhydrAMINE 50 MG/1 ML VIAL IV PRN (14:18)
[2020-10-22 14:21] LABS: INR 1.2; Partial Thromboplastin Time 28.2 SECS (23.9-33.8)
[2020-10-22] MEDS ORDERED: FLUCONAZOLE 100 MG TABLET PO STA (14:41)
[2020-10-22 14:51] LABS: Albumin 2.1 G/DL (3.4-5.0); Bilirubin,Total 2.7 MG/DL (0.20-1.00); Calcium 8.4 MG/DL (8.5-10.1); Osmolality,Calculated 280.4 MOS/KG (273-304); Potassium 4.3 MMOL/L (3.5-5.1); Total Protein 5.3 G/DL (6.4-8.2)
[2020-10-22] MEDS ORDERED: CASIRIVIMAB/IMDEVIMAB 1,200 MG in SODIUM CHLORIDE 0.9% 100 ML IV ONE (15:00)
[2020-10-22 15:18] LABS: Bilirubin,Urine Negative (Negative); Blood, Urine Negative (Negative); Glucose,Urine (UA) Negative (Negative); Hyaline Casts,Urine 38 /LPF (0-3); Ketones,Urine Negative (Negative); Mucus,Urine Occasional /LPF (Occasional); Nitrite,Urine Negative (Negative); Protein,Urine Negative; RBC,Urine 1 /HPF (0-4); Urine Appearance CLEAR (Clear); Urine Color Amber (Yellow); Urine Specific Gravity 1.016 (1.001-1.035)
[2020-10-22] MEDS ORDERED: GLUCAGON 1 MG VIAL IM PRN (15:21)
[2020-10-22] MEDS ORDERED: ALBUTEROL 2.5 MG/3 ML NEB RESP TX PRN (15:21)
[2020-10-22] MEDS ORDERED: DEXTROSE 50% 25 GM/50 ML VIAL IV PRN (15:21)
[2020-10-22] MEDS ORDERED: NITROGLYCERIN SL 0.4 MG TABLET SL PRN (15:47)
[2020-10-22] MEDS ORDERED: LEVOFLOXACIN INJ 750 MG/150 ML PREMIX IV SCH (16:00)
[2020-10-22] MEDS ORDERED: SODIUM CHLORIDE 0.9% 1,000 ML IV SCH (16:00)
[2020-10-22] MEDS: ENOXAPARIN 40 MG/0.4 ML SYRINGE SUBCUT SCH (16:08)
[2020-10-22] MEDS ORDERED: ALBUTEROL/IPRATROPIUM 3 ML NEB RESP TX SCH (19:00)
[2020-10-22] MEDS: POTASSIUM CHLORIDE 20 MEQ TABLET PO SCH (19:09)
[2020-10-22] MEDS: ASCORBIC ACID 500 MG TABLET PO SCH (22:56)
[2020-10-22] MEDS: NYSTATIN POWDER 15 GM BOTTLE TOP SCH (22:56)
[2020-10-22] MEDS: MELATONIN 3 MG TABLET PO PRN (22:56)
[2020-10-22] MEDS: ALBUTEROL INHALER 18 GM INH SCH (23:05)
[2020-10-22] MEDS: ZINC OXIDE PASTE 113 GM TUBE TOP SCH (23:05)
[2020-10-22] MEDS: NEBIVOLOL 5 MG TABLET PO SCH (23:10)
[2020-10-23] MEDS: ONDANSETRON 4 MG/2 ML VIAL IV PRN ×2 (02:09→12:13)
[2020-10-23] MEDS: ALBUTEROL INHALER 18 GM INH PRN ×2 (03:15→03:16)
[2020-10-23] MEDS: ALBUTEROL INHALER 18 GM INH SCH ×6 (03:29→23:24)
[2020-10-23] MEDS ORDERED: CHOLECALCIFEROL 1,000 UNIT TABLET PO SCH (09:00)
[2020-10-23] MEDS: DEXAMETHASONE 4 MG/1 ML VIAL IV SCH (09:17)
[2020-10-23] MEDS: PRASUGREL 10 MG TABLET PO SCH (09:17)
[2020-10-23] MEDS: COENZYME Q10 100 MG CAPSULE PO SCH (09:18)
[2020-10-23] MEDS: ZINC GLUCONATE 50 MG TABLET PO SCH (09:18)
[2020-10-23] MEDS: ASCORBIC ACID 500 MG TABLET PO SCH ×2 (09:18→22:30)
[2020-10-23] MEDS: CHOLECALCIFEROL 1,000 UNIT TABLET PO SCH (09:19)
[2020-10-23] MEDS: POTASSIUM CHLORIDE 20 MEQ TABLET PO SCH ×2 (09:19→17:19)
[2020-10-23] MEDS: PANTOPRAZOLE 40 MG TABLET PO SCH (09:20)
[2020-10-23] MEDS: ASPIRIN CHEW 81 MG TABLET PO SCH (10:31)
[2020-10-23] MEDS: NEBIVOLOL 5 MG TABLET PO SCH ×2 (10:31→23:24)
[2020-10-23] MEDS: ISOSORBIDE MONONITRATE 30 MG TABLET PO SCH (10:32)
[2020-10-23] MEDS: ZINC OXIDE PASTE 113 GM TUBE TOP SCH ×2 (10:32→22:30)
[2020-10-23] MEDS: NYSTATIN POWDER 15 GM BOTTLE TOP SCH ×3 (10:32→22:30)
[2020-10-23] MEDS: CETIRIZINE 10 MG TABLET PO SCH (10:32)
[2020-10-23] MEDS: NYSTATIN 500,000 UNIT/5 ML UDCUP SWISH/SWAL SCH ×3 (12:54→22:30)
[2020-10-23] MEDS: LOPERAMIDE 2 MG CAPSULE PO PRN (14:03)
[2020-10-23] MEDS ORDERED: ATORVASTATIN 40 MG TABLET PO SCH (21:00)
[2020-10-23] MEDS: MICONAZOLE 100 MG VAG SUPP 7/BOX VAG SCH (22:30)
[2020-10-23] MEDS: MELATONIN 3 MG TABLET PO PRN (22:30)
[2020-10-23] MEDS: ENOXAPARIN 40 MG/0.4 ML SYRINGE SUBCUT SCH (22:30)
[2020-10-24] MEDS: ALBUTEROL INHALER 18 GM INH SCH ×6 (02:48→22:16)
[2020-10-24] MEDS: ZALEPLON 5 MG CAPSULE PO PRN ×2 (02:48→22:17)
[2020-10-24 05:56] LABS: Basophils % 0.1 % (0.0-0.8); Hematocrit 36.5 VOL% (35.7-47.0); Immature Granulocytes % 0.6 %; Immature Granulocytes Absolute 0.04 #; Lymphocytes # 0.8 10*3/uL (1.4-4.0); Lymphocytes % 11.4 % (21.3-54.2); Mean Corpuscular HGB Conc 31.8 GM/DL (32-36); Mean Corpuscular Volume 96.1 FL (87-102); Mean Platelet Volume 10.6 FL (9.6-12.0); Monocytes % 6.7 % (1.7-12.7); Neutrophils % 81.2 % (38.7-73.9); Red Cell Distribution Width 14.6 % (9.3-17.3)
[2020-10-24 05:57] LABS: White Blood Count 6.9 T/CUMM (4-12)
[2020-10-24 05:58] LABS: Hemoglobin 11.6 GM/DL (12.0-16.0)
[2020-10-24 05:59] LABS: Platelet Count 120 T/CUMM (130-400)
[2020-10-24 06:34] LABS: Albumin 1.7 G/DL (3.4-5.0); Bilirubin,Total 2.1 MG/DL (0.20-1.00); Calcium 8.2 MG/DL (8.5-10.1); Osmolality,Calculated 277.8 MOS/KG (273-304); Potassium 4.6 MMOL/L (3.5-5.1); Total Protein 4.6 G/DL (6.4-8.2)
[2020-10-24] MEDS: ASPIRIN CHEW 81 MG TABLET PO SCH (08:27)
[2020-10-24] MEDS: PRASUGREL 10 MG TABLET PO SCH (08:27)
[2020-10-24] MEDS: COENZYME Q10 100 MG CAPSULE PO SCH (08:28)
[2020-10-24] MEDS: CHOLECALCIFEROL 1,000 UNIT TABLET PO SCH (08:28)
[2020-10-24] MEDS: POTASSIUM CHLORIDE 20 MEQ TABLET PO SCH ×2 (08:28→16:30)
[2020-10-24] MEDS: CETIRIZINE 10 MG TABLET PO SCH (08:29)
[2020-10-24] MEDS: ASCORBIC ACID 500 MG TABLET PO SCH ×2 (08:29→21:16)
[2020-10-24] MEDS: ISOSORBIDE MONONITRATE 30 MG TABLET PO SCH (08:29)
[2020-10-24] MEDS: NEBIVOLOL 5 MG TABLET PO SCH ×2 (08:29→21:56)
[2020-10-24] MEDS: PANTOPRAZOLE 40 MG TABLET PO SCH (08:29)
[2020-10-24] MEDS: ZINC GLUCONATE 50 MG TABLET PO SCH (08:29)
[2020-10-24] MEDS: DEXAMETHASONE 4 MG/1 ML VIAL IV SCH (08:29)
[2020-10-24] MEDS: NYSTATIN 500,000 UNIT/5 ML UDCUP SWISH/SWAL SCH ×4 (08:30→21:16)
[2020-10-24] MEDS: ZINC OXIDE PASTE 113 GM TUBE TOP SCH ×2 (08:30→21:56)
[2020-10-24] MEDS: NYSTATIN POWDER 15 GM BOTTLE TOP SCH ×3 (08:30→21:16)
[2020-10-24] MEDS: LOPERAMIDE 2 MG CAPSULE PO PRN (09:34)
[2020-10-24] MEDS ORDERED: LEVOFLOXACIN INJ 500 MG/100 ML PREMIX IV SCH (15:00)
[2020-10-24] MEDS ORDERED: FUROSEMIDE 40 MG/4 ML VIAL IV ONE (16:30)
[2020-10-24] MEDS ORDERED: diphenhydrAMINE CAP 25 MG CAPSULE ONE (19:04)
[2020-10-24] MEDS ORDERED: diphenhydrAMINE 50 MG/1 ML VIAL ONE (20:39)
[2020-10-24] MEDS: MICONAZOLE 100 MG VAG SUPP 7/BOX VAG SCH (21:15)
[2020-10-24] MEDS: ENOXAPARIN 40 MG/0.4 ML SYRINGE SUBCUT SCH (21:56)
[2020-10-24] MEDS: MELATONIN 3 MG TABLET PO PRN (22:16)
[2020-10-24] MEDS ORDERED: methylPREDNISolone SOD SUC 125 MG/2 ML VIAL IV ONE (23:10)
[2020-10-25] MEDS: ALBUTEROL INHALER 18 GM INH SCH ×3 (03:30→12:19)
[2020-10-25 05:18] LABS: Basophils % 0.1 % (0.0-0.8); Hemoglobin 11.5 GM/DL (12.0-16.0); Immature Granulocytes % 0.4 %; Immature Granulocytes Absolute 0.03 #; Lymphocytes # 0.6 10*3/uL (1.4-4.0); Lymphocytes % 7.3 % (21.3-54.2); Mean Corpuscular HGB Conc 31.9 GM/DL (32-36); Mean Corpuscular Volume 95.5 FL (87-102); Mean Platelet Volume 11.2 FL (9.6-12.0); Monocytes % 2.6 % (1.7-12.7); Neutrophils % 89.6 % (38.7-73.9); Platelet Count 141 T/CUMM (130-400); Red Blood Count 3.77 MC/CUMM (3.8-5.5); Red Cell Distribution Width 14.5 % (9.3-17.3); White Blood Count 8.3 T/CUMM (4-12)
[2020-10-25 05:32] LABS: Albumin 1.8 G/DL (3.4-5.0); Bilirubin,Total 2.3 MG/DL (0.20-1.00); Osmolality,Calculated 281.5 MOS/KG (273-304); Potassium 4.4 MMOL/L (3.5-5.1); Total Protein 4.6 G/DL (6.4-8.2)
[2020-10-25] MEDS: POTASSIUM CHLORIDE 20 MEQ TABLET PO SCH ×2 (08:30→08:47)
[2020-10-25] MEDS: PRASUGREL 10 MG TABLET PO SCH ×2 (08:31→08:46)
[2020-10-25] MEDS: COENZYME Q10 100 MG CAPSULE PO SCH ×2 (08:31→08:46)
[2020-10-25] MEDS: ASPIRIN CHEW 81 MG TABLET PO SCH ×2 (08:31→08:46)
[2020-10-25] MEDS: NYSTATIN 500,000 UNIT/5 ML UDCUP SWISH/SWAL SCH ×3 (08:31→12:20)
[2020-10-25] MEDS: ZINC GLUCONATE 50 MG TABLET PO SCH ×2 (08:32→08:47)
[2020-10-25] MEDS: CHOLECALCIFEROL 1,000 UNIT TABLET PO SCH ×2 (08:32→08:47)
[2020-10-25] MEDS: DEXAMETHASONE 4 MG/1 ML VIAL IV SCH ×2 (08:32→08:46)
[2020-10-25] MEDS: LOPERAMIDE 2 MG CAPSULE PO PRN (08:33)
[2020-10-25] MEDS: ISOSORBIDE MONONITRATE 30 MG TABLET PO SCH ×2 (08:33→08:47)
[2020-10-25] MEDS: CETIRIZINE 10 MG TABLET PO SCH ×2 (08:33→08:48)
[2020-10-25] MEDS: PANTOPRAZOLE 40 MG TABLET PO SCH ×2 (08:33→08:47)
[2020-10-25] MEDS: ASCORBIC ACID 500 MG TABLET PO SCH ×2 (08:33→08:47)
[2020-10-25] MEDS: ZINC OXIDE PASTE 113 GM TUBE TOP SCH ×2 (08:34→08:46)
[2020-10-25] MEDS: NYSTATIN POWDER 15 GM BOTTLE TOP SCH ×2 (08:34→08:47)
[2020-10-25] MEDS: NEBIVOLOL 5 MG TABLET PO SCH (08:46)
[2020-10-25] MEDS ORDERED: traMADol 50 MG TABLET PO PRN (09:52)
[2020-10-25 12:19] VITALS: BP 142/63
[2020-10-26 23:56] LABS: Specimen Source THROAT
== END 2020-10-25 14:38 ==
LOC: EDUNIT# → EDBD → N.EDINP 11:12 → N.ED 11:12 → N.2E 19:55
PROVIDERS: ADMIT Internal Medicine; ATTEND Internal Medicine